=== PATIENT | female | born 1945 | race Caucasian/White ===

== ENCOUNTER → 2018-10-05 15:17 | Outpatient (CLI) | payer BC, SELFPAY ==
--- NOTE | 2018-10-05 15:20 | BI_ITS ---
MAMMOGRAPHY - BILATERAL SCREENING REASON FOR EXAM: Female, 73 years old. Routine annual screening examination. PERTINENT HISTORY: Sister with breast cancer. TECHNIQUE: Digital bilateral breast taryn (3D mammographic acquisition) in the CC and MLO projections. 2-D mediolateral oblique (MLO) and craniocaudad (CC) views of both breasts were obtained. An exaggerated craniocaudad view of the right breast was obtained. CAD: Full Field Digital Mammography with Computer Added Detection was performed. COMPARISON: Comparison is made with prior study dated September 05, 2017 and August 23, 2016. FINDINGS: Breast Composition: The breasts are heterogeneously dense, which may obscure small masses. There are no dominant masses or suspicious calcifications. No other significant abnormalities are identified. There has been no significant change since the prior study. BI/SCREENING MAMM (CAD), BILAT IMPRESSION: Stable bilateral screening mammogram. Yearly follow-up mammogram recommended. (A) ASSESSMENT CATEGORY: BIRADS Category 1: Negative. A letter regarding these results will be sent to the patient by the facility within 30 days. Approximately 10% of breast cancers are not detected by mammography. A normal mammogram should not delay biopsy of a clinically suspicious abnormality. [id number] Electronically Signed: Kurt Camacho MD at 8:21 EST Tel [phone], Service support ,
--- OUTSIDE RECORDS SUMMARY | 2018-11-17 13:49 | XMS RPT_ITS ---
:1945 External Reference #:[id number] Author Organization OH[facility] Care Team Providers Name Role Phone LAZARUS SANCHEZ (MAIL RIDER) Attending Unavailable LAZARUS SANCHEZ (RUSS) Referring Unavailable AHMED, SHAMEEChapito BOED Attending Unavailable SILVERIO GALE Referring Unavailable AHMED, SHAMEEM MOHAMMED Attending Unavailable AHMED, SHAMEEM MOHAMMED Referring Unavailable SILVERIO GALE Attending Unavailable SILVERIO GALE Referring Unavailable AHMED, SHAMEEM MOHAMMED Attending Unavailable Andrea Landeros Attending Unavailable Garrison Gale Primary Care Unavailable PROBLEMS PROBLEMS DATE TYPE CONDITION / CODE ATTENDING STATUS SOURCE 03/10/2010 Active Gastro-esophageal AHMED, SHAMEEM Active [facility] reflux disease [facility] without Repository esophagitis / K21.9(ICD-10) 08/25/2018 Active Other chest pain / AHMED, SHAMEEM Active [facility] R07.89(ICD-10) [facility] Main [place] Repository 05/05/2018 Active Chest pain, NA Active [facility] unspecified / Main [place] R07.9(ICD-10) Repository PROCEDURES PROCEDURES No Procedure Records FoundRESULTS RESULTS PROGRESS Observed: 10/21/2018 Status: COMPLETED Source: [place] 1:59 PM [facility] REPOSITORY HNO ID: [id number] Author: Adrienne Chavez Service: (none) Author Type: Physician Type: Progress Notes Filed: 10/21/2018 2:25 PM Note Text: Follow-up EGD (GERD, non-cardiac chest pain) HPI Peyman Blandon is a 73 year old female here today for Follow- up EGD (GERD, non-cardiac chest pain). GERD symptoms are controlled well on PPI , minimal syptomms, reflux Upon bending down, no night reflux, no vomiting. Weight is stable. Record Review: [facility] records reviewed Current Outpatient Prescriptions: calcium carbonate (CALCIUM 600) 600 mg (1,500 mg) Tab Take 1 tablet twice daily Cholecalciferol, Vitamin D3, 5,000 unit cap Take 1 capsule by mouth once daily. omeprazole (PRILOSEC) 20 mg capsule Take 1 capsule by mouth daily before breakfast. 1/2 hr before meal. propranolol (INDERAL) 40 mg tablet Take 1 tablet by mouth twice daily. mupirocin (BACTROBAN) 2 % ointment Apply 1 application to affected area three times daily. (Patient not taking: Reported on 06/18/2018 ) No current facility-administered medications for this visit. ALLERGIES Allergen Reactions - Niacin Other: See Comments extreme flushing - Koyjhjn-Mrj-Wdt Red* Intolerance Social History Substance Use Topics - Smoking status: Never Smoker - Smokeless tobacco: Never Used - Alcohol use Yes Comment: Rarely PAST MEDICAL HISTORY Diagnosis Date - Collagenous colitis - Esophageal reflux - GERD (gastroesophageal reflux disease) - Hx of colonic polyps - Hyperparathyroidism - Other forms of migraine - Parathyroid adenoma - Schatzki's ring - Senile osteoporosis PAST SURGICAL HISTORY Procedure Laterality Date - COLONOSCOPY 12/11/2006 collagenous colitis - EGD 09/06/2008 Slightly patulous GE junctoin, neg H Pylori - EGD 08/25/2018 - EXPLORE PARATHYROID GLANDS 2002 Removal parathyroid gland FAMILY HISTORY Problem Relation Age of Onset - Diabetes Mother - Cancer Father Lung Cancer - other (Leukemia) Sister REVIEW OF SYSTEMS Review of Systems All other systems reviewed and are negative. PHYSICAL EXAM BP 132/64 Pulse 65 Resp (!) 97 Ht 162.6 cm (5' 4) Wt 64.4 kg (142 lb) BMI 24.37 kg/m? BMI 24.37 kg/(m2) Physical Exam Constitutional: She is oriented to person, place, and time and well-developed, well-nourished, and in no distress. HENT: Head: Normocephalic and atraumatic. Eyes: Conjunctivae are normal. No scleral icterus. Neck: Neck supple. Cardiovascular: Normal rate, regular rhythm and normal heart sounds. Pulmonary/Chest: Effort normal and breath sounds normal. Abdominal: Soft. Bowel sounds are normal. Musculoskeletal: She exhibits no edema. Neurological: She is alert and oriented to person, place, and time. Gait normal. Skin: Skin is warm and dry. Psychiatric: Mood, memory, affect and judgment normal. Assessment/Plan: Peyman was seen today for follow-up egd. Diagnoses and all orders for this visit: Gastroesophageal reflux disease without esophagitis Continue prilosec I have confirmed and edited as necessary, the PFSH and ROS obtained by others. Adrienne Chavez MD DATE: 10/21/18 TIME: 1:59 PM CNOV Observed: 10/21/2018 Status: COMPLETED Source: [place] 1:45 PM [facility] REPOSITORY Office Visit ([facility]) PEYMAN BLANDON I ([id number]) 1945 F Date Time Provider Department 10/21/18 1:45 PM ADRIENNE CHAVEZR During your visit today, we recorded the following information about you: Pulse Respiration Blood pressure Weight 65/minute 97/minute 132/64 64.4 kg Height 1.626 m Adrienne Chavez MD 10/21/2018 2:25 PM Signed Follow-up EGD (GERD, non-cardiac chest pain) HPI Peyman Blandon is a 73 year old female here today for Follow- up EGD (GERD, non-cardiac chest pain). GERD symptoms are controlled well on PPI , minimal syptomms, reflux Upon bending down, no night reflux, no vomiting. Weight is stable. Record Review: [facility] records reviewed Current Outpatient Prescriptions: calcium carbonate (CALCIUM 600) 600 mg (1,500 mg) Tab Take 1 tablet twice daily Cholecalciferol, Vitamin D3, 5,000 unit cap Take 1 capsule by mouth once daily. omeprazole (PRILOSEC) 20 mg capsule Take 1 capsule by mouth daily before breakfast. 1/2 hr before meal. propranolol (INDERAL) 40 mg tablet Take 1 tablet by mouth twice daily. mupirocin (BACTROBAN) 2 % ointment Apply 1 application to affected area three times daily. (Patient not taking: Reported on 06/18/2018 ) No current facility-administered medications for this visit. ALLERGIES Allergen Reactions - Niacin Other: See Comments extreme flushing - Sabseaz-Ufr-Gjk Red* Intolerance Social History Substance Use Topics - Smoking status: Never Smoker - Smokeless tobacco: Never Used - Alcohol use Yes Comment: Rarely PAST MEDICAL HISTORY Diagnosis Date - Collagenous colitis - Esophageal reflux - GERD (gastroesophageal reflux disease) - Hx of colonic polyps - Hyperparathyroidism - Other forms of migraine - Parathyroid adenoma - Schatzki's ring - Senile osteoporosis PAST SURGICAL HISTORY Procedure Laterality Date - COLONOSCOPY 12/11/2006 collagenous colitis - EGD 09/06/2008 Slightly patulous GE junctoin, neg H Pylori - EGD 08/25/2018 - EXPLORE PARATHYROID GLANDS 2002 Removal parathyroid gland FAMILY HISTORY Problem Relation Age of Onset - Diabetes Mother - Cancer Father Lung Cancer - other (Leukemia) Sister REVIEW OF SYSTEMS Review of Systems All other systems reviewed and are negative. PHYSICAL EXAM BP 132/64 Pulse 65 Resp (!) 97 Ht 162.6 cm (5' 4) Wt 64.4 kg (142 lb) BMI 24.37 kg/m? BMI 24.37 kg/(m2) Physical Exam Constitutional: She is oriented to person, place, and time and well-developed, well-nourished, and in no distress. HENT: Head: Normocephalic and atraumatic. Eyes: Conjunctivae are normal. No scleral icterus. Neck: Neck supple. Cardiovascular: Normal rate, regular rhythm and normal heart sounds. Pulmonary/Chest: Effort normal and breath sounds normal. Abdominal: Soft. Bowel sounds are normal. Musculoskeletal: She exhibits no edema. Neurological: She is alert and oriented to person, place, and time. Gait normal. Skin: Skin is warm and dry. Psychiatric: Mood, memory, affect and judgment normal. Assessment/Plan: Peyman was seen today for follow-up egd. Diagnoses and all orders for this visit: Gastroesophageal reflux disease without esophagitis Continue prilosec I have confirmed and edited as necessary, the PFSH and ROS obtained by others. Adrienne Chavez MD DATE: 10/21/18 TIME: 1:59 PM Referring Provider: SELF [200] Allergies As of Date: 10/21/2018 Noted Allergy Reaction NIACIN 08/15/2014 14 - Other: See Comments Comments: extreme flushing [id number]-[id number]-QLC REDUCTASE INHIBIT*01/31/2015 5 - Intolerance Date Reviewed: 10/21/2018 Reviewed by: Adrienne Chavez - Fully Assessed Reason for Visit: Follow-up EGD [Other] Cmt: GERD, non-cardiac chest pain Reason For Visit History Recorded Primary Visit Diagnosis:Gastroesophageal reflux disease without esophagitis [K21.9] Other Visit Diagnoses:Chest pain, unspecified type [R07.9] Gastroesophageal reflux disease, esophagitis presence not specified [K21.9] Order(s):omeprazole (PRILOSEC) 20 mg capsuleTake 1 capsule by mouth daily before breakfast. 1/2 hr before meal.Disp: 90 capsuleRfl: 3 Prescriptions as of 10/21/2018 Sig: CALCIUM CARBONATE 600 MG CALC* Take 1 tablet twice daily CHOLECALCIFEROL (VITAMIN D3) * Take 1 capsule by mouth once * OMEPRAZOLE 20 MG CAPSULE,EDWIGE* Take 1 capsule by mouth daily* PROPRANOLOL 40 MG TABLET Take 1 tablet by mouth twice * Problem List As Of Date 10/21/2018 Noted Resolved SENILE OSTEOPOROSIS [M81.0] Ingrowing Nail [L60.0] INVALID FOR*03/10/2010 Migraine with aura, not intractable, without st*INVALID FOR* GERD (Gastroesophageal Reflux Disease) [K21.9] INVALID FOR* Vitamin D Deficiency [E55.9] INVALID FOR* S/P parathyroidectomy [E89.2] INVALID FOR* Onychia and paronychia of toe [L03.039] INVALID FOR*09/14/2018 Hyperlipidemia [E78.5] INVALID FOR* More... Headache(784.0) [R51] INVALID FOR*09/14/2018 Statin intolerance [Z78.9] INVALID FOR* Prescriptions ordered this encounter Disp Refills Start End OMEPRAZOLE 20 MG CAPSULE,DELAYED REL* 90 c* 3 10/21/2018 Route: ORAL Sig: Take 1 capsule by mouth daily before breakfast. 1/2 hr before meal. Medications Discontinued During This Encounter mupirocin (BACTROBAN) 2 % ointment 22 g 0 03/27/2018 10/21/2018 Route: TOPICAL Sig: Apply 1 application to affected area three times daily. Patient not taking: Reported on 06/18/2018 Disc: Course of therapy completed omeprazole (PRILOSEC) 20 mg capsule 90 c* 3 05/05/2018 10/21/2018 Route: ORAL Sig: Take 1 capsule by mouth daily before breakfast. 1/2 hr before meal. Disc: Reason for discontinue is not on file. Disposition: Return in about 6 months (around 04/21/2019). Follow-up and Disposition History Recorded Encounter Status:Closed by ADRIENNE CHAVEZ MD on 10/21/18 SCREENING MAMM (CAD), Observed: 10/05/2018 Status: F Source: [facility] 3:21 PM [facility] Imaging Services [address] [place], [place] [address] [address] SCREENING MAMM (CAD), BILAT MR#: [id number] Acct: [id number] Name: PEYMAN BLANDON I Rep #: [id number] : 1945 F 73 From: Kurt Camacho MD PCP: Garrison Gale MD Status: REG CL Study: SCREENING MAMM (CAD), BILAT Date of Exam: 10/05/18 Exam# [id number] Ordering Dr: Andrea Landeros MD MAMMOGRAPHY - BILATERAL SCREENING REASON FOR EXAM: Female, 73 years old. Routine annual screening examination. PERTINENT HISTORY: Sister with breast cancer. TECHNIQUE: Digital bilateral breast taryn (3D mammographic acquisition) in the CC and MLO projections. 2-D mediolateral oblique (MLO) and craniocaudad (CC) views of both breasts were obtained. An exaggerated craniocaudad view of the right breast was obtained. CAD: Full Field Digital Mammography with Computer Added Detection was performed. COMPARISON: Comparison is made with prior study dated September 05, 2017 and August 23, 2016. FINDINGS: Breast Composition: The breasts are heterogeneously dense, which may obscure small masses. There are no dominant masses or suspicious calcifications. No other significant abnormalities are identified. There has been no significant change since the prior study. BI/SCREENING MAMM (CAD), BILAT IMPRESSION: Stable bilateral screening mammogram. Yearly follow-up mammogram recommended. (A) ASSESSMENT CATEGORY: BIRADS Category 1: Negative. A letter regarding these results will be sent to the patient by the facility within 30 days. Approximately 10% of breast cancers are not detected by mammography. A normal mammogram should not delay biopsy of a clinically suspicious abnormality. [id number] Electronically Signed: Kurt Camacho MD at 8:21 EST Tel [phone], Service support , CC: Garrison Gale MD; Andrea Landeros MD Television Cabinet Finisher: Signed PROGRESS Observed: 09/14/2018 Status: COMPLETED Source: [facility] 1:02 PM [facility] RE[facility]IT[facility] HNO ID: [id number] Author: Silverio Gale Service: (none) Author Type: Physician Type: Progress Notes Filed: 09/14/2018 1:16 PM Note Text: Chief Complaint Patient presents with: Follow Up HPI Peyman Blandon is a 73 year old female who presents here today for follow-up of routine d/u . Migraine headache, Sx well controlled with propanolol . A recent bp was high. GERD /Schatzki's ring. Dr Chavez, endoscopy Past medical history, appointments, medications, allergies reviewed. Previous Medical History PAST MEDICAL HISTORY Diagnosis Date - Collagenous colitis - Esophageal reflux - GERD (gastroesophageal reflux disease) - Hx of colonic polyps - Hyperparathyroidism - Other forms of migraine - Parathyroid adenoma - Schatzki's ring - Senile osteoporosis Previous Surgical History PAST SURGICAL HISTORY Procedure Laterality Date - COLONOSCOPY 12/11/2006 collagenous colitis - EGD 09/06/2008 Slightly patulous GE junctoin, neg H Pylori - EGD 08/25/2018 - EXPLORE PARATHYROID GLANDS 2002 Removal parathyroid gland Family History FAMILY HISTORY Problem Relation Age of Onset - Diabetes Mother - Cancer Father Lung Cancer - other (Leukemia) Sister Patient Allergies ALLERGIES Allergen Reactions - Niacin Other: See Comments extreme flushing - Ghejrnl-Opu-Tom Red* Intolerance Current Medications Current Outpatient Prescriptions on File Prior to Visit: omeprazole (PRILOSEC) 20 mg capsule Take 1 capsule by mouth daily before breakfast. 1/2 hr before meal. propranolol (INDERAL) 40 mg tablet Take 1 tablet by mouth twice daily. Cholecalciferol, Vitamin D3, 5,000 unit cap Take 1 capsule by mouth once daily. calcium carbonate (CALCIUM 600) 600 mg (1,500 mg) Tab Take 1 tablet twice daily mupirocin (BACTROBAN) 2 % ointment Apply 1 application to affected area three times daily. (Patient not taking: Reported on 06/18/2018 ) No current facility-administered medications on file prior to visit. 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 in 2013. ROS: General: Feels well, no weight changes, fever, chills. HEENT: No sinus congestion, earache, sore throat. Cardiac: No chest pain, palpitations, shortness of breath Resp: No cough, wheeze. GI: No reflux symptoms, food intolerance, bowel changes. : No urinary frequency, dysuria. MS: No pain or joint complaints. PHYSICAL EXAMINATION BP 122/58 (BP Site: Left Arm, BP Position: Sitting, BP Cuff Size: Regular Adult) Pulse 64 Temp 36.6 ?C (97.9 ?F) Resp 16 Ht 162.6 cm (5' 4) Wt 64.9 kg (143 lb) BMI 24.55 kg/m? General: Alert and oriented, no distress, pleasant and cooperative. Heart: Regular, normal S1 and S2, no murmurs, rubs, or gallops Lungs: Clear to auscultation bilaterally Abdomen: Benign Extremities: Feet/ankles without edema, posterior tibial pulses full and symmetrical Health Maintenance List PAP EVERY 3 YEARS (65-80 YEARS OLD) due on 2009 DTAP,TDAP,TD(1 - Tdap) due on 08/16/2014 FECAL OCCULT BLOOD due on 08/20/2017 MAMMOGRAM due on 08/23/2017 INFLUENZA(1) due on 07/11/2018 LIPID SCREEN due on 08/11/2019 DIABETES SCREEN due on 02/11/2020 BONE DENSITY Completed ADULT PREVNAR-13 Completed PNEUMOVAX AGE 65 AND OVER WITH 5YR LOOKBACK Completed Data reviewed Lab Results Component Value Date/Time CHOL 246 (H) 08/11/2014 09:15 AM HDL 63 08/11/2014 09:15 AM LDL 161 (H) 08/11/2014 09:15 AM Assessment/Plan: .(G43.109) Migraine with aura, not intractable, without status migrainosus (primary encounter diagnosis) Comment: Plan: propranolol (INDERAL) 40 mg tablet, COMP METABOLIC PANEL, CBC, TSH BLD Doing well. She's agreeable to BW prior to next visit. (E55.9) Vitamin D deficiency Comment: Plan: Cholecalciferol, Vitamin D3, 5,000 unit cap, VITAMIN D 25 HYDROXY (M81.0) Senile osteoporosis Comment: Plan: Cholecalciferol, Vitamin D3, 5,000 unit cap Continue (Z23) Need for vaccination Comment: Plan: ADMIN OF INFLUENZA VACCINE, INFLUENZA SEASONAL HIGH DOSE AGE 65+ Agreeable (E78.5) Hyperlipidemia, unspecified hyperlipidemia type Comment: statin intolerant. Plan: LIPID PANEL BASIC prior that'll be 5 year. (K21.9) Gastroesophageal reflux disease, esophagitis presence not specified Comment: Plan: COMP METABOLIC PANEL, TSH BLD (Z78.9) Statin intolerance Comment: Plan: as above. Signed Prescriptions Disp Refills propranolol (INDERAL) 40 mg tablet 180 tablet 3 Sig: Take 1 tablet by mouth twice daily. BRENDA: No Cholecalciferol, Vitamin D3, 5,000 unit cap 90 capsule 3 Sig: Take 1 capsule by mouth once daily. BRENDA: No RTO: annual for flu shot if all is well. Silverio Gale MD CNOV Observed: 09/14/2018 Status: COMPLETED Source: [facility] 1:00 PM [facility] REPOSITORY Office Visit ([facility]) PEYMAN BLANDON I ([id number]) 1945 F Date Time Provider Department 09/14/18 1:00 PM SILVERIO GALE During your visit today, we recorded the following information about you: Temperature Pulse Respiration Blood pressure 97.9 degrees 64/minute 16/minute 122/58 Weight Height 64.9 kg 1.626 m Silverio Gale MD 09/14/2018 1:16 PM Signed Chief Complaint Patient presents with: Follow Up HPI Peyman Blandon is a 73 year old female who presents here today for follow-up of routine d/u . Migraine headache, Sx well controlled with propanolol . A recent bp was high. GERD /Schatzki's ring. Dr Chavez, endoscopy Past medical history, appointments, medications, allergies reviewed. Previous Medical History PAST MEDICAL HISTORY Diagnosis Date - Collagenous colitis - Esophageal reflux - GERD (gastroesophageal reflux disease) - Hx of colonic polyps - Hyperparathyroidism - Other forms of migraine - Parathyroid adenoma - Schatzki's ring - Senile osteoporosis Previous Surgical History PAST SURGICAL HISTORY Procedure Laterality Date - COLONOSCOPY 12/11/2006 collagenous colitis - EGD 09/06/2008 Slightly patulous GE junctoin, neg H Pylori - EGD 08/25/2018 - EXPLORE PARATHYROID GLANDS 2002 Removal parathyroid gland Family History FAMILY HISTORY Problem Relation Age of Onset - Diabetes Mother - Cancer Father Lung Cancer - other (Leukemia) Sister Patient Allergies ALLERGIES Allergen Reactions - Niacin Other: See Comments extreme flushing - Tcsbgaz-Toy-Cbg Red* Intolerance Current Medications Current Outpatient Prescriptions on File Prior to Visit: omeprazole (PRILOSEC) 20 mg capsule Take 1 capsule by mouth daily before breakfast. 1/2 hr before meal. propranolol (INDERAL) 40 mg tablet Take 1 tablet by mouth twice daily. Cholecalciferol, Vitamin D3, 5,000 unit cap Take 1 capsule by mouth once daily. calcium carbonate (CALCIUM 600) 600 mg (1,500 mg) Tab Take 1 tablet twice daily mupirocin (BACTROBAN) 2 % ointment Apply 1 application to affected area three times daily. (Patient not taking: Reported on 06/18/2018 ) No current facility-administered medications on file prior to visit. 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 in 2013. ROS: General: Feels well, no weight changes, fever, chills. HEENT: No sinus congestion, earache, sore throat. Cardiac: No chest pain, palpitations, shortness of breath Resp: No cough, wheeze. GI: No reflux symptoms, food intolerance, bowel changes. : No urinary frequency, dysuria. MS: No pain or joint complaints. PHYSICAL EXAMINATION BP 122/58 (BP Site: Left Arm, BP Position: Sitting, BP Cuff Size: Regular Adult) Pulse 64 Temp 36.6 ?C (97.9 ?F) Resp 16 Ht 162.6 cm (5' 4) Wt 64.9 kg (143 lb) BMI 24.55 kg/m? General: Alert and oriented, no distress, pleasant and cooperative. Heart: Regular, normal S1 and S2, no murmurs, rubs, or gallops Lungs: Clear to auscultation bilaterally Abdomen: Benign Extremities: Feet/ankles without edema, posterior tibial pulses full and symmetrical Health Maintenance List PAP EVERY 3 YEARS (65-80 YEARS OLD) due on 2009 DTAP,TDAP,TD(1 - Tdap) due on 08/16/2014 FECAL OCCULT BLOOD due on 08/20/2017 MAMMOGRAM due on 08/23/2017 INFLUENZA(1) due on 07/11/2018 LIPID SCREEN due on 08/11/2019 DIABETES SCREEN due on 02/11/2020 BONE DENSITY Completed ADULT PREVNAR-13 Completed PNEUMOVAX AGE 65 AND OVER WITH 5YR LOOKBACK Completed Data reviewed Lab Results Component Value Date/Time CHOL 246 (H) 08/11/2014 09:15 AM HDL 63 08/11/2014 09:15 AM LDL 161 (H) 08/11/2014 09:15 AM Assessment/Plan: .(G43.109) Migraine with aura, not intractable, without status migrainosus (primary encounter diagnosis) Comment: Plan: propranolol (INDERAL) 40 mg tablet, COMP METABOLIC PANEL, CBC, TSH BLD Doing well. She's agreeable to BW prior to next visit. (E55.9) Vitamin D deficiency Comment: Plan: Cholecalciferol, Vitamin D3, 5,000 unit cap, VITAMIN D 25 HYDROXY (M81.0) Senile osteoporosis Comment: Plan: Cholecalciferol, Vitamin D3, 5,000 unit cap Continue (Z23) Need for vaccination Comment: Plan: ADMIN OF INFLUENZA VACCINE, INFLUENZA SEASONAL HIGH DOSE AGE 65+ Agreeable (E78.5) Hyperlipidemia, unspecified hyperlipidemia type Comment: statin intolerant. Plan: LIPID PANEL BASIC prior that'll be 5 year. (K21.9) Gastroesophageal reflux disease, esophagitis presence not specified Comment: Plan: COMP METABOLIC PANEL, TSH BLD (Z78.9) Statin intolerance Comment: Plan: as above. Signed Prescriptions Disp Refills propranolol (INDERAL) 40 mg tablet 180 tablet 3 Sig: Take 1 tablet by mouth twice daily. BRENDA: No Cholecalciferol, Vitamin D3, 5,000 unit cap 90 capsule 3 Sig: Take 1 capsule by mouth once daily. BRENDA: No RTO: annual for flu shot if all is well. Silverio Gale MD Referring Provider: SILVERIO GALE [[id number]] Allergies As of Date: 09/14/2018 Noted Allergy Reaction NIACIN 08/15/2014 14 - Other: See Comments Comments: extreme flushing DDHTSUM-WJR-JLO REDUCTASE INHIBIT*01/31/2015 5 - Intolerance Date Reviewed: 09/14/2018 Reviewed by: Carlene Albert Ma - Fully Assessed Reason for Visit: Follow Up [171] Primary Visit Diagnosis:Migraine with aura, not intractable, without status migrainosus [G43.109] Other Visit Diagnoses:Vitamin D deficiency [E55.9] Senile osteoporosis [M81.0] Need for vaccination [Z23] Hyperlipidemia, unspecified hyperlipidemia type [E78.5] Gastroesophageal reflux disease, esophagitis presence not specified [K21.9] Statin intolerance [Z78.9] Order(s):ADMIN OF INFLUENZA VACCINE [[id number]] Order #: [id number]: 1 INFLUENZA SEASONAL HIGH DOSE AGE 65+ [[id number]] Order #: [id number] propranolol (INDERAL) 40 mg tabletTake 1 tablet by mouth twice daily.Disp: 180 tabletRfl: 3 Cholecalciferol, Vitamin D3, 5,000 unit capTake 1 capsule by mouth once daily.Disp: 90 capsuleRfl: 3 COMP METABOLIC PANEL [SQCMP] Order #: [id number] FUTURE LIPID PANEL BASIC [SQLIPB] Order #: [id number] FUTURE CBC [SQCBC] Order #: [id number] FUTURE TSH BLD [SQTSH] Order #: [id number] FUTURE VITAMIN D 25 HYDROXY [SQVITD] Order #: [id number] FUTURE Prescriptions as of 09/14/2018 Sig: PROPRANOLOL 40 MG TABLET Take 1 tablet by mouth twice * CHOLECALCIFEROL (VITAMIN D3) * Take 1 capsule by mouth once * OMEPRAZOLE 20 MG CAPSULE,EDWIGE* Take 1 capsule by mouth daily* CALCIUM CARBONATE 600 MG CALC* Take 1 tablet twice daily MUPIROCIN 2 % TOPICAL OINTMENT Apply 1 application to affect* Patient not taking: Reported on 06/18/2018 Problem List As Of Date 09/14/2018 Noted Resolved SENILE OSTEOPOROSIS [M81.0] Ingrowing Nail [L60.0] INVALID FOR*03/10/2010 Migraine with aura, not intractable, without st*INVALID FOR* GERD (Gastroesophageal Reflux Disease) [K21.9] INVALID FOR* Vitamin D Deficiency [E55.9] INVALID FOR* S/P parathyroidectomy [E89.2] INVALID FOR* Onychia and paronychia of toe [L03.039] INVALID FOR*09/14/2018 Hyperlipidemia [E78.5] INVALID FOR* More... Headache(784.0) [R51] INVALID FOR*09/14/2018 Statin intolerance [Z78.9] INVALID FOR* Prescriptions ordered this encounter Disp Refills Start End PROPRANOLOL 40 MG TABLET 180 * 3 09/14/2018 Route: ORAL Sig: Take 1 tablet by mouth twice daily. CHOLECALCIFEROL (VITAMIN D3) 5,000 U* 90 c* 3 09/14/2018 Route: ORAL Sig: Take 1 capsule by mouth once daily. Medications Discontinued During This Encounter propranolol (INDERAL) 40 mg tablet 180 * 3 08/22/2017 09/14/2018 Route: ORAL Sig: Take 1 tablet by mouth twice daily. Disc: Reason for discontinue is not on file. Cholecalciferol, Vitamin D3, 5,000 u* 90 c* 3 08/22/2017 09/14/2018 Route: ORAL Sig: Take 1 capsule by mouth once daily. Disc: Reason for discontinue is not on file. Encounter Status:Closed by GARRISON GALE MD on 09/14/18 RUSSTOUTRBRANDON Observed: 09/01/2018 Status: COMPLETED Source: VELMA 12:00 AM [facility] REPOSITORY Patient Outreach ([facility]) PEYMAN BLANDON I ([id number]) 1945 F Date Time Provider Department 09/01/18 [facility] During your visit today, we recorded the following information about you: Allergies As of Date: 09/01/2018 Noted Allergy Reaction NIACIN 08/15/2014 14 - Other: See Comments Comments: extreme flushing YBNVSOT-VRJ-HIS REDUCTASE INHIBIT*01/31/2015 5 - Intolerance Date Reviewed: 08/25/2018 Reviewed by: Charlotte Houston RN - Fully Assessed Visit Diagnosis:Medication management [Z79.899] Order(s):LIPID PANEL BASIC [SQLIPB] Order #: [id number] FUTURE Prescriptions as of 09/01/2018 Sig: OMEPRAZOLE 20 MG CAPSULE,EDWIGE* Take 1 capsule by mouth daily* MUPIROCIN 2 % TOPICAL OINTMENT Apply 1 application to affect* Patient not taking: Reported on 06/18/2018 X PROPRANOLOL 40 MG TABLET Take 1 tablet by mouth twice * X CHOLECALCIFEROL (VITAMIN D3) * Take 1 capsule by mouth once * CALCIUM CARBONATE 600 MG CALC* Take 1 tablet twice daily Problem List As Of Date 09/01/2018 Noted Resolved SENILE OSTEOPOROSIS [M81.0] Ingrowing Nail [L60.0] INVALID FOR*03/10/2010 Migraine [G43.909] INVALID FOR* GERD (Gastroesophageal Reflux Disease) [K21.9] INVALID FOR* Vitamin D Deficiency [E55.9] INVALID FOR* S/P parathyroidectomy [E89.2] INVALID FOR* Onychia and paronychia of toe [L03.039] INVALID FOR* Hyperlipidemia [E78.5] INVALID FOR* More... Headache(784.0) [R51] INVALID FOR* Encounter Status:Closed by EPIC, PRODUSER on 10/02/18 SURGICAL PATHOLOGY Observed: 08/25/2018 Status: F Source: VELMA 12:14 PM [facility] REPOSITORY Specimen originated from [facility] Specimen #: [id number] Submitting Physician: ADRIENNE CHAVEZ FINAL DIAGNOSIS Esophagus, biopsy - Squamous mucosa with no diagnostic alteration. - Negative for intraepithelial eosinophils. SR/srj 08/26/2018 Diaz Morrissey MD, Ph.D. (Electronic Signature) SPECIMEN SUBMITTED A: ESOPHAGUS, BIOPSY CLINICAL DATA gerd GROSS DESCRIPTION A. Received in formalin are two pieces of valdes, soft tissue aggregating to 0.5 x 0.2 x 0.2 cm. Totally submitted in one cassette. Gross examination performed at [facility], [address] [place] [address] 08/25/2018 10:40:06 PM Date of Report: 08/26/2018 Date of Procedure: 08/25/2018 Date of Receipt: 08/25/2018 Submitted by: ADRIENNE CHAVEZ Location: [facility] Diagnostic interpretation performed at [place] [address]. HISTORY PHYSICAL Observed: 08/25/2018 Status: COMPLETED Source: VELMA 11:30 AM [facility] REPOSITORY HNO ID: [id number] Author: Adrienne Chavez Service: (none) Author Type: Physician Type: HANDP Filed: 08/25/2018 12:16 PM Note Text: HISTORY AND PHYSICAL Peyman Blandon, 72 year old female here for EGD, to evaluate non-cardiac chest pain Current history and physical on file: Yes Is a new History and Physical required for today's visit? No Indication for procedure: Atypical Chest Pain PROCEDURE(S) SCHEDULED FOR: EGD (Esophagogastroduodenoscopy) with or without biopsies, removal of polyps or lesions, dilation ( any means), treatment of bleeding ( any means), Barrx treatment of Tristen's Esophagus, image tube placement or cryo therapy treatment based on clinical findings. BASELINE BEHAVIOR: Calm BASELINE ORIENTATION: A AND O x3 All medications and allergies reviewed: Yes Skin Assessment: Warm dry muscus membranes pink Airway/Respiratory Assessment: Airway: visualization of the uvula- Yes Mouth: opening greater than 2 fingerbreadths- Yes Neck: full range of motion- Yes Breath sounds clear/equal- Yes Cardiac Assessment: Regular rate and rhythm without murmur Abdominal Assessment: Abdomen soft, non-tender, no masses or organomegaly. Sedation Plan: Deep Additional Comments: None Adrienne Chavez MD PROGRESS Observed: 06/18/2018 Status: COMPLETED Source: VELMA 1:09 PM [facility] REPOSITORY O ID: [id number] Author: Adrienne Chavez Service: (none) Author Type: Physician Type: Progress Notes Filed: 06/18/2018 1:48 PM Note Text: GERD HPI: Peyman Blandon is a 72 year old female who presents for GERD. Unbearable CP, 1 month ago patient visited Urgent care in [place], EKG was fine, pain was was mid sternal, patient used to be on PPI stopped secondary claims of dementia. Recently started on PPI 20 mg, no symptoms are improved, also on bland diet. No dysphagia, nausea or vomiting. No weight loss. Record Review: [facility] records reviewed PAST MEDICAL HISTORY Diagnosis Date - Collagenous colitis - Esophageal reflux - GERD (gastroesophageal reflux disease) - Hx of colonic polyps - Hyperparathyroidism - Other forms of migraine - Parathyroid adenoma - Schatzki's ring - Senile osteoporosis PAST SURGICAL HISTORY Procedure Laterality Date - COLONOSCOPY 12/31/2006 - COLONOSCOPY 12/11/2006 - EGD 09/06/2008 - EXPLORE PARATHYROID GLANDS 2002 Removal parathyroid gland Allergies: ALLERGIES Allergen Reactions - Niacin Other: See Comments extreme flushing - Ybwhthq-Mde-Yhl Red* Intolerance Medications: omeprazole (PRILOSEC) 20 mg capsule Take 1 capsule by mouth daily before breakfast. 1/2 hr before meal. propranolol (INDERAL) 40 mg tablet Take 1 tablet by mouth twice daily. Cholecalciferol, Vitamin D3, 5,000 unit cap Take 1 capsule by mouth once daily. calcium carbonate (CALCIUM 600) 600 mg (1,500 mg) Tab Take 1 tablet twice daily mupirocin (BACTROBAN) 2 % ointment Apply 1 application to affected area three times daily. FAMILY HISTORY Problem Relation Age of Onset - Diabetes Mother - Cancer Father Lung Cancer - Leukemia [OTHER] Sister Employer And Job Title: None on file Years Of Education Completed: Not specified Marital Status: Social History Substance Use Topics - Smoking status: Never Smoker - Smokeless tobacco: Never Used - Alcohol use Yes Comment: Rarely Review of Systems: Review of Systems Gastrointestinal: Heartburn Where do you currently reside? [place] Are you taking any blood thinners? No Physical Examination: Physical Exam Constitutional: She is oriented to person, place, and time and well-developed, well-nourished, and in no distress. HENT: Head: Normocephalic and atraumatic. Eyes: Conjunctivae are normal. No scleral icterus. Neck: Neck supple. Cardiovascular: Normal rate, regular rhythm and normal heart sounds. Pulmonary/Chest: Effort normal and breath sounds normal. Abdominal: Soft. Bowel sounds are normal. Musculoskeletal: She exhibits no edema. Neurological: She is alert and oriented to person, place, and time. Gait normal. Skin: Skin is warm and dry. Psychiatric: Mood, memory, affect and judgment normal. Assessment/Plan: Peyman was seen today for gerd. Diagnoses and all orders for this visit: Gastroesophageal reflux disease, esophagitis presence not specified - EGD GEN ANES; Future Non-cardiac chest pain - EGD GEN ANES; Future I have confirmed and edited as necessary, the PFSH and ROS obtained by others. This note was generated using Momo voice recognition system, and there may be some incorrect words, spellings, and punctuation that were not noted in checking the note before saving. Carmen Bingham LPN CNOV Observed: 06/18/2018 Status: COMPLETED Source: VELMA 1:00 PM [facility] RE[facility] Office Visit ([facility]) PEYMAN BLANDON I ([id number]) 1945 F Date Time Provider Department 06/18/18 1:00 PM ADRIENNE CHAVEZ [facility] During your visit today, we recorded the following information about you: Pulse Blood pressure Weight Height 72/minute 148/82 65.3 kg 1.607 m Adrienne Chavez MD 06/18/2018 1:48 PM Signed GERD HPI: Peyman Blandon is a 72 year old female who presents for GERD. Unbearable CP, 1 month ago patient visited Urgent care in [place], EKG was fine, pain was was mid sternal, patient used to be on PPI stopped secondary claims of dementia. Recently started on PPI 20 mg, no symptoms are improved, also on bland diet. No dysphagia, nausea or vomiting. No weight loss. Record Review: [facility] records reviewed PAST MEDICAL HISTORY Diagnosis Date - Collagenous colitis - Esophageal reflux - GERD (gastroesophageal reflux disease) - Hx of colonic polyps - Hyperparathyroidism - Other forms of migraine - Parathyroid adenoma - Schatzki's ring - Senile osteoporosis PAST SURGICAL HISTORY Procedure Laterality Date - COLONOSCOPY 12/31/2006 - COLONOSCOPY 12/11/2006 - EGD 09/06/2008 - EXPLORE PARATHYROID GLANDS 2002 Removal parathyroid gland Allergies: ALLERGIES Allergen Reactions - Niacin Other: See Comments extreme flushing - Iqsmvam-Otv-Jlq Red* Intolerance Medications: omeprazole (PRILOSEC) 20 mg capsule Take 1 capsule by mouth daily before breakfast. 1/2 hr before meal. propranolol (INDERAL) 40 mg tablet Take 1 tablet by mouth twice daily. Cholecalciferol, Vitamin D3, 5,000 unit cap Take 1 capsule by mouth once daily. calcium carbonate (CALCIUM 600) 600 mg (1,500 mg) Tab Take 1 tablet twice daily mupirocin (BACTROBAN) 2 % ointment Apply 1 application to affected area three times daily. FAMILY HISTORY Problem Relation Age of Onset - Diabetes Mother - Cancer Father Lung Cancer - Leukemia [OTHER] Sister Employer And Job Title: None on file Years Of Education Completed: Not specified Marital Status: Social History Substance Use Topics - Smoking status: Never Smoker - Smokeless tobacco: Never Used - Alcohol use Yes Comment: Rarely Review of Systems: Review of Systems Gastrointestinal: Heartburn Where do you currently reside? [place] Are you taking any blood thinners? No Physical Examination: Physical Exam Constitutional: She is oriented to person, place, and time and well-developed, well-nourished, and in no distress. HENT: Head: Normocephalic and atraumatic. Eyes: Conjunctivae are normal. No scleral icterus. Neck: Neck supple. Cardiovascular: Normal rate, regular rhythm and normal heart sounds. Pulmonary/Chest: Effort normal and breath sounds normal. Abdominal: Soft. Bowel sounds are normal. Musculoskeletal: She exhibits no edema. Neurological: She is alert and oriented to person, place, and time. Gait normal. Skin: Skin is warm and dry. Psychiatric: Mood, memory, affect and judgment normal. Assessment/Plan: Peyman was seen today for gerd. Diagnoses and all orders for this visit: Gastroesophageal reflux disease, esophagitis presence not specified - EGD GEN ANES; Future Non-cardiac chest pain - EGD GEN ANES; Future I have confirmed and edited as necessary, the PFSH and ROS obtained by others. This note was generated using Momo voice recognition system, and there may be some incorrect words, spellings, and punctuation that were not noted in checking the note before saving. Carmen Bingham LPN Referring Provider: SILVERIO GALE [[id number]] Allergies As of Date: 06/18/2018 Noted Allergy Reaction NIACIN 08/15/2014 14 - Other: See Comments Comments: extreme flushing [id number]-IWW-[id number] REDUCTASE INHIBIT*01/31/2015 5 - Intolerance Date Reviewed: 06/18/2018 Reviewed by: Adrienne hCavez - Fully Assessed Reason for Visit: GERD [548] Primary Visit Diagnosis:Gastroesophageal reflux disease, esophagitis presence not specified [K21.9] Other Visit Diagnosis:Non-cardiac chest pain [R07.89] Order(s):EGD GEN ANES [2400078] Order #: [id number] FUTURE Prescriptions as of 06/18/2018 Sig: OMEPRAZOLE 20 MG CAPSULE,EDWIGE* Take 1 capsule by mouth daily* PROPRANOLOL 40 MG TABLET Take 1 tablet by mouth twice * CHOLECALCIFEROL (VITAMIN D3) * Take 1 capsule by mouth once * CALCIUM CARBONATE 600 MG CALC* Take 1 tablet twice daily MUPIROCIN 2 % TOPICAL OINTMENT Apply 1 application to affect* Patient not taking: Reported on 06/18/2018 Problem List As Of Date 06/18/2018 Noted Resolved SENILE OSTEOPOROSIS [M81.0] Ingrowing Nail [L60.0] INVALID FOR*03/10/2010 Migraine [G43.909] INVALID FOR* GERD (Gastroesophageal Reflux Disease) [K21.9] INVALID FOR* Vitamin D Deficiency [E55.9] INVALID FOR* S/P parathyroidectomy [E89.2] INVALID FOR* Onychia and paronychia of toe [L03.039] INVALID FOR* Hyperlipidemia [E78.5] INVALID FOR* More... Headache(784.0) [R51] INVALID FOR* Encounter Status:Closed by ADRIENNE CHAVEZ MD on 06/18/18 CNCO Observed: 06/18/2018 Status: COMPLETED Source: VELMA 12:00 AM [facility] REPOSITORY Letter Text UPPER ENDOSCOPY (EGD) You are scheduled at: [place] [address] You are scheduled for an EGD on 08/25/18 at 11:00 AM. YOU MUST have a responsible adult to drive you home and to assist you at home while you finish recovering from your sedation. Please limit the number of people that come with you to 1-2 people due to the limited waiting area. Bring your Floor Refinisher's license, insurance card(s) and a list of your medications with you. Arrive 45 minutes before your scheduled exam time at 10:15 AM Do not eat or drink anything after midnight the night before, including gum and hard candy. If you take any heart, blood pressure or breathing medications, you can take these before 6:00am on the day of your exam with a little sip of water. 5 DAYS BEFORE THE EXAM STOP TAKING ASPIRIN OR ASPIRIN CONTAINING PRODUCTS, VITAMIN E, BLOOD THINNERS SUCH COUMADIN, WARFARIN, PLAVIX, AGGRENOX (Please consult with the prescribing doctor of your blood thinner). DAY OF THE EXAM Diabetics: Please do not take any of your diabetic medications on the morning of the procedure; you may take them after the procedure. Any questions, please call our office at [phone]. There will be a $50.00 charge for any no show appointments or same day cancels. PROGRESS Observed: 05/05/2018 Status: COMPLETED Source: VELMA 12:02 PM [facility] REPOSITORY HNO ID: [id number] Author: Lazarus Powell (Russ) Daniel Service: (none) Author Type: Nurse Practitioner Type: Progress Notes Filed: 05/05/2018 12:11 PM Note Text: HPI/CC: Peyman Blandon is a 72 year old female who presents for Chest discomfort and nausea started suddenly last evening around 11-12pm. Declined Er last evening at request of . CP is constant, does not change. Pain is mid sternal and up into throat. Zeinab consume pizza a few days ago. Attempted antacids without resolve. + Hx of GERD previously treated successfully with Prilosec but stopped d/t media claims. See GI, needs new referral. Denies SOB, diaphoreses, radiation, palpitations, vomiting, change in BMs, change in urination, dizziness, lightheadedness, weakness. ROS as above, otherwise non-contributory. Reviewed PMHx, PSHx, social Hx, medications and allergies. PHYSICAL EXAMINATION: BP 132/78 Pulse 84 Resp 16 Wt 65.3 kg (144 lb) BMI 25.31 kg/m? General appearance: Well appearing, alert, in no acute distress, well-hydrated, well nourished. Skin: Skin color, texture, turgor normal, no suspicious rashes or lesions Neck: Supple, no adenopathy; thyroid symmetric, normal size, no bruits Lungs: Lungs clear to auscultation. No wheezing, rhonchi, rales Heart: RRR without murmur, gallop, or rubs. No ectopy, ECG: NSR ? Left atrial enlargement- no previous ECG to compare Abdomen: Normal abdominal exam, Abdomen soft, non-tender. Bowel sounds normal. No masses, organomegaly ASSESSMENT/PLAN: 1. Chest pain, unspecified type - ICD9: 786.50, ICD10: R07.9 (primary diagnosis) Atypical chest pain, symptoms are not consistent with cardiac ischemia due to nonexertional nature of symptom and accompanying GI symptoms possible etiology include GERD - Treatment with trial of Prilosec 20 mg QD - ECG COMPLETE W INTERPRETATION 2. Gastroesophageal reflux disease, esophagitis presence not specified - ICD9: 530.81, ICD10: K21.9 - CONSULT TO GASTROENTEROLOGY - as above - discussed when to go to ER - F/u PRN Lazarus Sanchez APRN.CNP ECG COMPLETE W Observed: 05/05/2018 Status: F Source: VELMA INTERPRETATION 11:04 AM [facility] REPOSITORY NAME : PEYMAN BLANDON PID : [id number] : 1945 Gender : Female Race : ORD : [id number] Procedure Date : May 05 2018 11:04:19 Edit Date : May 07 2018 14:44:51 Diagnosis:NORMAL SINUS RHYTHM POSSIBLE LEFT ATRIAL ENLARGEMENT BORDERLINE ECG Confirmed by ELIJAH MICHELE D.O. ([id number]) on 05/07/2018 2:44:21 PM Ventricular Rate : 80 BPM Atrial Rate : 80 BPM P-R Interval : 162 ms QRS Duration : 70 ms Q-T Interval : 376 ms QTC Calculation(Bezet) : 433 ms P [place] : 61 degrees R [place] : 14 degrees T [place] : 47 degrees Test Reason : Location : 185 : [facility] Overread By : ELIJAH MICHELE D.O. Edited By : ELIJAH MICHELE D.O. Referred By : LAZARUS SANCHEZ Acquired by : MODESTO MEJÍA CNOV Observed: 05/05/2018 Status: COMPLETED Source: VELMA 11:00 AM [facility] REPOSITORY Office Visit (FAMPWS) PEYMAN LBANDON I ([id number]) 1945 F Date Time Provider Department 05/05/18 11:00 AM LAZARUS SANCHEZ) FAMPWS During your visit today, we recorded the following information about you: Pulse Respiration Blood pressure Weight 84/minute 16/minute 132/78 65.3 kg Lazarus Sanchez APRN.CNP 05/05/2018 12:11 PM Signed HPI/CC: Peyman Blandon is a 72 year old female who presents for Chest discomfort and nausea started suddenly last evening around 11-12pm. Declined Er last evening at request of . CP is constant, does not change. Pain is mid sternal and up into throat. Zeinab consume pizza a few days ago. Attempted antacids without resolve. + Hx of GERD previously treated successfully with Prilosec but stopped d/t media claims. See GI, needs new referral. Denies SOB, diaphoreses, radiation, palpitations, vomiting, change in BMs, change in urination, dizziness, lightheadedness, weakness. ROS as above, otherwise non-contributory. Reviewed PMHx, PSHx, social Hx, medications and allergies. PHYSICAL EXAMINATION: BP 132/78 Pulse 84 Resp 16 Wt 65.3 kg (144 lb) BMI 25.31 kg/m? General appearance: Well appearing, alert, in no acute distress, well-hydrated, well nourished. Skin: Skin color, texture, turgor normal, no suspicious rashes or lesions Neck: Supple, no adenopathy; thyroid symmetric, normal size, no bruits Lungs: Lungs clear to auscultation. No wheezing, rhonchi, rales Heart: RRR without murmur, gallop, or rubs. No ectopy, ECG: NSR ? Left atrial enlargement- no previous ECG to compare Abdomen: Normal abdominal exam, Abdomen soft, non-tender. Bowel sounds normal. No masses, organomegaly ASSESSMENT/PLAN: 1. Chest pain, unspecified type - ICD9: 786.50, ICD10: R07.9 (primary diagnosis) Atypical chest pain, symptoms are not consistent with cardiac ischemia due to nonexertional nature of symptom and accompanying GI symptoms possible etiology include GERD - Treatment with trial of Prilosec 20 mg QD - ECG COMPLETE W INTERPRETATION 2. Gastroesophageal reflux disease, esophagitis presence not specified - ICD9: 530.81, ICD10: K21.9 - CONSULT TO GASTROENTEROLOGY - as above - discussed when to go to ER - F/u PRN Lazarus Sanchez APRN.CNP Referring Provider: SELF [[id number]] Allergies As of Date: 05/05/2018 Noted Allergy Reaction NIACIN 08/15/2014 14 - Other: See Comments Comments: extreme flushing AVMFLNL-ZMZ-IQI REDUCTASE INHIBIT*01/31/2015 5 - Intolerance Date Reviewed: 05/05/2018 Reviewed by: Modesto Mejía LPN - Fully Assessed Reason for Visit: Chest Pain [21] Cmt: started suddenly last evening around 11-12pm; no shortness of breath; did not radiate to jaw or arm Primary Visit Diagnosis:Chest pain, unspecified type [R07.9] Other Visit Diagnosis:Gastroesophageal reflux disease, esophagitis presence not specified [K21.9] Order(s):ECG COMPLETE W INTERPRETATION [ECG01] Order #: [id number] FUTURE omeprazole (PRILOSEC) 20 mg capsuleTake 1 capsule by mouth daily before breakfast. 1/2 hr before meal.Disp: 90 capsuleRfl: 3 CONSULT TO GASTROENTEROLOGY [9010] Order #: [id number]: 1 Prescriptions as of 05/05/2018 Sig: MUPIROCIN 2 % TOPICAL OINTMENT Apply 1 application to affect* PROPRANOLOL 40 MG TABLET Take 1 tablet by mouth twice * CHOLECALCIFEROL (VITAMIN D3) * Take 1 capsule by mouth once * CALCIUM CARBONATE 600 MG CALC* Take 1 tablet twice daily OMEPRAZOLE 20 MG CAPSULE,EDWIGE* Take 1 capsule by mouth daily* Problem List As Of Date 05/05/2018 Noted Resolved SENILE OSTEOPOROSIS [M81.0] Ingrowing Nail [L60.0] INVALID FOR*03/10/2010 Migraine [G43.909] INVALID FOR* GERD (Gastroesophageal Reflux Disease) [K21.9] INVALID FOR* Vitamin D Deficiency [E55.9] INVALID FOR* S/P parathyroidectomy [E89.2] INVALID FOR* Onychia and paronychia of toe [L03.039] INVALID FOR* Hyperlipidemia [E78.5] INVALID FOR* More... Headache(784.0) [R51] INVALID FOR* Prescriptions ordered this encounter Disp Refills Start End OMEPRAZOLE 20 MG CAPSULE,DELAYED REL* 90 c* 3 05/05/2018 Route: ORAL Sig: Take 1 capsule by mouth daily before breakfast. 1/2 hr before meal. Encounter Status:Closed by LAZARUS SANCHEZ CNP on 05/05/18 PROGRESS Observed: 03/27/2018 Status: COMPLETED Source: VEL[place] 12:15 PM [facility] REPOSITORY HNO ID: [id number] Author: Millicent Young Service: (none) Author Type: Nurse Practitioner Type: Progress Notes Filed: 03/27/2018 12:27 PM Note Text: Subjective HPI Pt presents with c/o rash on right side of face near mouth x 2 days. Teller mild pain prior to rash eruption. This am right lower lip was swollen and has rash as well, right inner cheek has lesions as well. Denies fever, drainage, honey colored crusting. Had chills intermittently yesterday and feels like I'm coming down with something. Concern for secondary infection as she scratched a couple lesions open. Hx chickenpox as a child. 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 Review of Systems Constitutional: Positive for chills. Negative for fever. Skin: Positive for rash. Negative for itching. Objective Physical Exam Constitutional: She is oriented to person, place, and time and well-developed, well-nourished, and in no distress. No distress. HENT: Head: Vesicular lesions to area noted. Right buccal mucosa with raised lesions as well. No drainage, heat, edema noted. Neurological: She is alert and oriented to person, place, and time. Skin: Skin is warm and dry. Rash noted. Rash is maculopapular. She is not diaphoretic. Norris, Maculopapular lesions scattered to areas noted. No burrows, no signs of secondary infection. No drainage, heat, edema. +blanching. BP 140/90 Pulse 70 Temp 37.3 ?C (99.1 ?F) (Left Tympanic) Resp 16 Wt 65.3 kg (144 lb) BMI 25.31 kg/m? .Patient presents with: Rash: on face getting worse PAST MEDICAL HISTORY Diagnosis Date - Esophageal reflux - Hyperparathyroidism - Other forms of migraine - Parathyroid adenoma - Senile osteoporosis PAST SURGICAL HISTORY Procedure Laterality Date - EXPLORE PARATHYROID GLANDS 2002 Removal parathyroid gland ALLERGIES Niacin; Kwepicc-Mxv-Uvt Reductase Inhibitors MEDICATIONS propranolol (INDERAL) 40 mg tablet Take 1 tablet by mouth twice daily. Cholecalciferol, Vitamin D3, 5,000 unit cap Take 1 capsule by mouth once daily. calcium carbonate (CALCIUM 600) 600 mg (1,500 mg) Tab Take 1 tablet twice daily acyclovir (ZOVIRAX) 800 mg tablet Take 1 tablet by mouth five times daily for 10 days. mupirocin (BACTROBAN) 2 % ointment Apply 1 application to affected area three times daily. FAMILY HISTORY Problem Relation Age of Onset - Cancer Father Lung Cancer - Diabetes Mother - Leukemia [Other] [OTHER] Sister Social History Substance Use Topics - Smoking status: Never Smoker - Smokeless tobacco: Never Used - Alcohol use Yes Comment: Rarely ASSESSMENT/PLAN: 1. Herpes zoster with complication - ICD9: 053.8, ICD10: B02.8 - ACYCLOVIR 800 MG TABLET - MUPIROCIN 2 % TOPICAL OINTMENT The patient is instructed to return or seek emergency treatment if symptoms become worse or with any acute change in condition. The patient verbalizes understanding and is in agreement with plan of care. Millicent Young CNP ] CNOV Observed: 03/27/2018 Status: COMPLETED Source: VELMA 10:15 AM [facility] REPOSITORY Office Visit (WSTR) PEYMAN BLANDON I ([id number]) 1945 F Date Time Provider Department 03/27/18 10:15 AM MILLICENT YOUNG [facility] During your visit today, we recorded the following information about you: Temperature Pulse Respiration Blood pressure 99.1 degrees 70/minute 16/minute 140/90 Weight 65.3 kg Millicent Young APRN.CNP 03/27/2018 10:24 AM Signed Herpes Zoster Infection (Shingles) Herpes zoster infection, also called shingles, is caused by the chickenpox virus. When a person has chickenpox, he or she is never completely cured of the virus. The virus lives at the base of nerves under the skin, and the body's immune system usually keeps the infection confined there. However, sometimes the virus becomes active again, and produces blisters. Pain is usually the first sign of shingles, followed by blisters most often located over one side of the chest and back, or on one side of the face or neck. However, shingles can occur almost anywhere on the body. The blisters of shingles usually heal in about 3 weeks. Several medications can hasten healing slightly if given within the first 2 to 3 days. These medications are acyclovir (Zovirax), famcyclovir (Famvir), and valacyclovir (Valtrex). Occasionally, the pain of shingles lasts after the skin has healed. This is called postherpetic neuralgia. People over about 60 years of age are at greatest risk of this. Postherpetic neuralgia can be treated with oral medications for pain, a cream called Zosqix, and tricyclic antidepressants such as amitriptyline (Elavil). These tricyclic antidepressants are not used for their antidepressant actions, but rather for their beneficial effects on healing inflamed nerves. Postherpetic neuralgia usually disappears within six months. Millicent Young APRN.MAIL RIDER 03/27/2018 12:27 PM Signed Subjective HPI Pt presents with c/o rash on right side of face near mouth x 2 days. Teller mild pain prior to rash eruption. This am right lower lip was swollen and has rash as well, right inner cheek has lesions as well. Denies fever, drainage, honey colored crusting. Had chills intermittently yesterday and feels like I'm coming down with something. Concern for secondary infection as she scratched a couple lesions open. Hx chickenpox as a child. 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 Review of Systems Constitutional: Positive for chills. Negative for fever. Skin: Positive for rash. Negative for itching. Objective Physical Exam Constitutional: She is oriented to person, place, and time and well-developed, well-nourished, and in no distress. No distress. HENT: Head: Vesicular lesions to area noted. Right buccal mucosa with raised lesions as well. No drainage, heat, edema noted. Neurological: She is alert and oriented to person, place, and time. Skin: Skin is warm and dry. Rash noted. Rash is maculopapular. She is not diaphoretic. Norris, Maculopapular lesions scattered to areas noted. No burrows, no signs of secondary infection. No drainage, heat, edema. +blanching. BP 140/90 Pulse 70 Temp 37.3 ?C (99.1 ?F) (Left Tympanic) Resp 16 Wt 65.3 kg (144 lb) BMI 25.31 kg/m? .Patient presents with: Rash: on face getting worse PAST MEDICAL HISTORY Diagnosis Date - Esophageal reflux - Hyperparathyroidism - Other forms of migraine - Parathyroid adenoma - Senile osteoporosis PAST SURGICAL HISTORY Procedure Laterality Date - EXPLORE PARATHYROID GLANDS 2002 Removal parathyroid gland ALLERGIES Niacin; Ziemzkk-Lhq-Fom Reductase Inhibitors MEDICATIONS propranolol (INDERAL) 40 mg tablet Take 1 tablet by mouth twice daily. Cholecalciferol, Vitamin D3, 5,000 unit cap Take 1 capsule by mouth once daily. calcium carbonate (CALCIUM 600) 600 mg (1,500 mg) Tab Take 1 tablet twice daily acyclovir (ZOVIRAX) 800 mg tablet Take 1 tablet by mouth five times daily for 10 days. mupirocin (BACTROBAN) 2 % ointment Apply 1 application to affected area three times daily. FAMILY HISTORY Problem Relation Age of Onset - Cancer Father Lung Cancer - Diabetes Mother - Leukemia [Other] [OTHER] Sister Social History Substance Use Topics - Smoking status: Never Smoker - Smokeless tobacco: Never Used - Alcohol use Yes Comment: Rarely ASSESSMENT/PLAN: 1. Herpes zoster with complication - ICD9: 053.8, ICD10: B02.8 - ACYCLOVIR 800 MG TABLET - MUPIROCIN 2 % TOPICAL OINTMENT The patient is instructed to return or seek emergency treatment if symptoms become worse or with any acute change in condition. The patient verbalizes understanding and is in agreement with plan of care. Millicent Young CNP ] Referring Provider: SELF [[id number]] Allergies As of Date: 03/27/2018 Noted Allergy Reaction NIACIN 08/15/2014 14 - Other: See Comments Comments: extreme flushing [id number] REDUCTASE INHIBIT*01/31/2015 5 - Intolerance Date Reviewed: 03/27/2018 Reviewed by: Annie Tyson Ma - Fully Assessed Reason for Visit: Rash [1087] Cmt: on face getting worse Primary Visit Diagnosis:Herpes zoster with complication [B02.8] Order(s):acyclovir (ZOVIRAX) 800 mg tabletTake 1 tablet by mouth five times daily for 10 days.Disp: 50 tabletRfl: 0 mupirocin (BACTROBAN) 2 % ointmentApply 1 application to affected area three times daily.Disp: 22 gRfl: 0 Prescriptions as of 03/27/2018 Sig: PROPRANOLOL 40 MG TABLET Take 1 tablet by mouth twice * CHOLECALCIFEROL (VITAMIN D3) * Take 1 capsule by mouth once * CALCIUM CARBONATE 600 MG CALC* Take 1 tablet twice daily ACYCLOVIR 800 MG TABLET Take 1 tablet by mouth five t* MUPIROCIN 2 % TOPICAL OINTMENT Apply 1 application to affect* Problem List As Of Date 03/27/2018 Noted Resolved SENILE OSTEOPOROSIS [M81.0] Ingrowing Nail [L60.0] INVALID FOR*03/10/2010 Migraine [G43.909] INVALID FOR* GERD (Gastroesophageal Reflux Disease) [K21.9] INVALID FOR* Vitamin D Deficiency [E55.9] INVALID FOR* S/P parathyroidectomy [E89.2] INVALID FOR* Onychia and paronychia of toe [L03.039] INVALID FOR* Hyperlipidemia [E78.5] INVALID FOR* More... Headache(784.0) [R51] INVALID FOR* Other instructions from your clinician: Herpes Zoster Infection (Shingles) Herpes zoster infection, also called shingles, is caused by the chickenpox virus. When a person has chickenpox, he or she is never completely cured of the virus. The virus lives at the base of nerves under the skin, and the body's immune system usually keeps the infection confined there. However, sometimes the virus becomes active again, and produces blisters. Pain is usually the first sign of shingles, followed by blisters most often located over one side of the chest and back, or on one side of the face or neck. However, shingles can occur almost anywhere on the body. The blisters of shingles usually heal in about 3 weeks. Several medications can hasten healing slightly if given within the first 2 to 3 days. These medications are acyclovir (Zovirax), famcyclovir (Famvir), and valacyclovir (Valtrex). Occasionally, the pain of shingles lasts after the skin has healed. This is called postherpetic neuralgia. People over about 60 years of age are at greatest risk of this. Postherpetic neuralgia can be treated with oral medications for pain, a cream called Zosqix, and tricyclic antidepressants such as amitriptyline (Elavil). These tricyclic antidepressants are not used for their antidepressant actions, but rather for their beneficial effects on healing inflamed nerves. Postherpetic neuralgia usually disappears within six months. Prescriptions ordered this encounter Disp Refills Start End ACYCLOVIR 800 MG TABLET 50 t* 0 03/27/2018 04/06/2018 Route: ORAL Sig: Take 1 tablet by mouth five times daily for 10 days. MUPIROCIN 2 % TOPICAL OINTMENT 22 g 0 03/27/2018 Route: TOPICAL Sig: Apply 1 application to affected area three times daily. Encounter Status:Closed by MILLICENT YOUNG CNP on 03/27/18 ALLERGIES ALLERGIES DATE TYPE / CODE NAME / CODE REACTION SEVERITY SOURCE 06/09/2015 Drug No Known Unknown [place] Allergy/416 Allergies/S32156 [facility] 404166(SNOM 0388(RXNORM) Hospital ED CT) Repository 01/31/2015 Drug [id number] INTOLERANCE [facility] Class/09825 REDUCTASE [address] [place] [address](SNOMED INHIBITORS Repository CT) 08/15/2014 DRUG NIACIN OTHER: SEE C [facility] INGREDI/[address] [place] [id number](SNOM Repository ED CT) ENCOUNTERS ENCOUNTERS ADMIT/DISCHARGE ACCOUNT ADMITTING ENCOUNTER LOCATION SOURCE NUMBER CLASS 10/21/2018/10/21/20 [id number] Ambulatory [address] Repository 10/05/[id number] [facility] ing:OPBI Repository 09/14/2018/09/16/20 [id number] Ambulatory [address] Repository 08/25/2018/08/25/20 [id number] Ambulatory [address] Repository 06/18/2018/06/18/20 [id number] Ambulatory [address] Repository 05/05/2018/05/05/20 [id number] Ambulatory [address] Repository 05/05/2018/05/06/20 [id number] Ambulatory [address] Repository 03/27/2018/03/30/20 [id number] Ambulatory [address] Repository PAYERS PAYERS ENCOUNTER GUARANTOR PAYER SUBSCRIBER SOURCE 10/05/2018 Rah Parham Primary PEYMANJABIER MEEKS: Akilah [id number] Insurance:[employer] [id number] [facility] Number: [place], [place] [id number] Repository [id number]: 330) Date:[id number] [phone] () [id number], [place] [address]EY: 10/05/2018 Secondary NOT GIVENUNK Akilah Insurance:SELF PAY [facility] Number: Effective Repository Date:2018-08-27
== END ==
PROVIDERS: Family Provider Family Medicine; PCP Family Medicine; Visit Provider Obstetrics & Gynecology
DX: Z12.31 Encounter for screening mammogram for malignant neoplasm of breast (principal)
CPT/HCPCS: 77063; 77067

== ENCOUNTER → 2019-10-06 09:48 | Outpatient (CLI) | payer BC, SELFPAY ==
--- NOTE | 2019-10-06 09:51 | BI_ITS ---
MAMMOGRAPHY - BILATERAL SCREENING 3-D TOMOSYNTHESIS REASON FOR EXAM: Female, 74 years old. MAMMOGRAPHY - BILATERAL SCREENING REASON FOR EXAM: Female, 74 years old. Routine annual screening examination. PERTINENT HISTORY: Sister with breast cancer. TECHNIQUE: Digital bilateral breast gregg (3D mammographic acquisition) in the CC and MLO projections. 2-D mediolateral oblique (MLO) and craniocaudad (CC) views of both breasts were obtained. An exaggerated craniocaudad view of the right breast was obtained. CAD: Full Field Digital Mammography with Computer Added Detection was performed. COMPARISON: Comparison is made with prior study dated October 05, 2018, September 05, 2017 and August 23, 2016. FINDINGS: Breast Composition: The breasts are heterogeneously dense, which may obscure small masses. There are no dominant masses or suspicious calcifications. No other significant abnormalities are identified. There has been no significant change since the prior study. IMPRESSION: Stable bilateral screening mammogram. Yearly follow-up mammogram recommended. (A) ASSESSMENT CATEGORY: BIRADS Category 1: Negative. A letter regarding these results will be sent to the patient by the facility within 30 days. Approximately 10% of breast cancers are not detected by mammography. A normal mammogram should not delay biopsy of a clinically suspicious abnormality. [id number] PERTINENT HISTORY: No significant family history. TECHNIQUE: 2-D mammograms and 3-D Tomosynthesis of the breast (s) were performed. CAD was performed. COMPARISON: None. FINDINGS: The breast composition is Scattered benign calcifications are seen. No dense spiculated masses or suspicious microcalcifications are identified. No architectural distortion is identified. There is no skin thickening or retraction. There has been no significant change since the prior study. BI/SCREEN MAMM (CAD) W/GREGG BILAT IMPRESSION: No mammographic signs of malignancy. Routine yearly mammograms recommended. ASSESSMENT CATEGORY: BIRADS Category 1: Negative. A letter regarding these results will be sent to the patient by the facility within 30 days. FOLLOW UP RECOMMENDATION: Yearly follow up mammogram recommended. (A) Approximately 10% of breast cancers are not detected by mammography. A normal mammogram should not delay biopsy of a clinically suspicious abnormality. Electronically Signed: Hiren Santoyo, at 11:56 EST Tel , Service support ,
== END ==
PROVIDERS: Family Provider Family Medicine; PCP Family Medicine; Referring Provider Obstetrics & Gynecology; Visit Provider Obstetrics & Gynecology
DX: Z12.31 Encounter for screening mammogram for malignant neoplasm of breast (principal)
CPT/HCPCS: 77063; 77067

== ENCOUNTER 2020-07-31 00:24 | Emergency (ER) | payer BC, SELFPAY ==
[2020-07-31 00:25] VITALS: BP 181/110; PULSE 91; RESP 19; TEMP 36.7; O2SAT 96; BMI 26.9
[2020-07-31 00:30] VITALS: BP 159/106
--- NOTE | 2020-07-31 00:33 | EKG12_ITS ---
Test Reason : ABD PAIN Blood Pressure : / mmHG Vent. Rate : 087 BPM Atrial Rate : 087 BPM P-R Int : 190 ms QRS Dur : 070 ms QT Int : 372 ms P-R-T Axes : 059 003 044 degrees QTc Int : 447 ms Normal sinus rhythm Normal ECG Confirmed by TAMAR BERNAL, HANDY ([id number]), digital editor KATHLEEN CORTES ([id number]) on 08/01/2020 1:28:02 PM Referred By: MR Confirmed By:HANDY BOYLE MD
--- NOTE | 2020-07-31 00:34 | ED.VIS.GI ---
History of Present Illness Chief Complaint: Nausea/Vomiting - Abdominal Pain/Flank Pain Onset: Today Timing: Continuous Quality: - - Burning Worsened by: Nothing Relieved by: Nothing - Nausea/Vomiting/Emesis GI Symptom: Nausea, Vomiting Quality: Nonbilious. Negative for: Blood streaks Severity: Moderate - Diarrhea/Melena/Hematochezia GI Symptom: Negative for: Diarrhea Narrative: Patient presenting for evaluation secondary to nausea vomiting chest pain. Patient reports that she has a severe history of gastroesophageal reflux that she is dealt with since she was in her 30s. She reports that this can be offset by even eating bread. Patient reports that tonight she ate pizza and egg rolls, and started to have nausea and vomiting. She reports that she took antacids, and this did not seem to alleviate her symptoms. She reports that she has been having profuse emesis that is been associated with some chest pain. Mild shortness of breath. She denies any abdominal pain. She denies any cough fever diarrhea or any infectious type symptoms. Patient denies any history of cardiovascular disease. Review of systems otherwise negative. Past Medical History - Allergies and Home Meds Allergies/Adverse Reactions: Allergies acetaminophen [From Tylenol] Adverse Reaction (Verified 07/31/20 00:27) Upset Stomach Primary Care Physician: Richard Juarez MD [Primary Care Provider] - Past Medical History: - - GERD, hypertension Lives: Spouse/ Significant Other Smoking Status: Never smoker Alcohol: None Drugs: None Review of Systems All systems negative except as indicated General: Denies: Chills, Fever, Sweats Eyes: Denies: Visual changes - bilaterally, Diplopia ENT: Denies: Rhinorrhea, Sore throat Cardiovascular: Reports: Chest pain Respiratory: Denies: Dyspnea, Cough, Dyspnea on exertion Gastrointestinal: Reports: Abdominal pain, Nausea, Vomiting Genitourinary: Denies: Dysuria, Hematuria, Frequency Musculoskeletal: Denies: Back pain, Extremity Pain Skin: Denies: Rash, Wounds Neurological: Denies: Headache, Weakness, Numbness Physical Exam Vital Signs/Narrative: Vital Signs Temp Pulse Resp BP Pulse Ox 07/31/20 00:30 159/106 H 07/31/20 00:25 98.1 F 91 19 H 181/110 H 96 Inital Vital Signs reviewed: Yes General: Well nourished, Well developed, No Acute Distress Head: Normocephalic, Atraumatic Eyes: Perrl, EOMI ENT: Moist mucous membranes, No rhinorrhea Neck: Supple, Nontender Cardiovascular: Regular rate, Regular rhythm, No murmurs Respiratory: No distress, CTA bilaterally, Chest nontender Abdomen: Soft, Nontender, Nondistended, Normal bowel sounds. Negative for: Tender Back: Nontender, Normal Inspection Extremities: Nontender, No edema Skin: Normal color, No rash Neurological: Alert, Oriented x3, Cranial nerves II-XII grossly intact, Normal Strength, Normal Sensation Psychological: Normal affect, Normal Mood Diagnostic/Tx/Re-eval Clinical Impression(s) from Imaging Studies Chest X-Ray 07/31/20 02:13 IMPRESSION: Degenerative changes, as described above. No demonstrated acute cardiopulmonary process. Electronically Signed: Alex Clark, at 2:37 EDT Tel , Service support , Abdomen/Pelvis CT 07/31/20 02:44 IMPRESSION: Normal unenhanced CT of the abdomen and pelvis. Electronically Signed: Alex Clark, at 3:47 EDT Tel , Service support , Chest CT 07/31/20 02:44 IMPRESSION: There is a small hiatal hernia. Electronically Signed: Alex Clark at 3:53 EDT Tel , Service support , Laboratory Data 07/31/20 07/31/20 07/31/20 00:38 00:38 03:30 WBC 16.1 H RBC 4.39 Hgb 12.9 Hct 40.0 MCV 91.1 MCH 29.4 MCHC 32.3 RDW Std Deviation 40.9 RDW Coeff of Sulema 12.4 Plt Count 289 MPV 10.2 Immature Gran % (Auto) 0.400 Neut % (Auto) 79.9 H Lymph % (Auto) 11.8 L [place] % (Auto) 6.0 Eos % (Auto) 1.5 Baso % (Auto) 0.4 Absolute Neuts (auto) 12.8 H Absolute Lymphs (auto) 1.90 Nucleated RBC % 0 Sodium 139 Potassium 3.6 Chloride 103 Carbon Dioxide 30.0 Anion Gap 6 BUN 17 Creatinine 0.91 Estim Creat Clear Calc 46.13 Est GFR (MDRD) Af Amer 77 Est GFR (MDRD) Non-Af 64 BUN/Creatinine Ratio 18.7 Glucose 117 H Calcium 9.0 Total Bilirubin 0.40 AST 15 ALT 24 Alkaline Phosphatase 135 H Troponin I < 0.015 < 0.015 Total Protein 8.0 Albumin 3.6 Globulin 4.4 H Albumin/Globulin Ratio 0.8 L Lipase 87 - EKG Initial EKG Interpretation: - - Sinus rhythm of [address] segments normal T waves normal RI and QTc intervals no evidence of acute ischemia or arrhythmia. Follow-up EKG Interpretation: - - Repeat EKG shows no evidence of evolution, continued sinus rhythm with a ventricular rate of [address] segments normal upright T waves normal RI and QTc intervals no evidence of acute ischemia or arrhythmia. - Medical Decision Making Patient presented with nausea vomiting and chest pain. An EKG was obtained which was found to be within normal limits. IV was established laboratory studies were obtained. Patient was given a GI cocktail and Zofran and fluids. She had minimal to no improvement with this. Patient was given IV Pepcid. CBC demonstrates leukocytosis, chemistry and lipase unremarkable troponin found to be negative. Patient continues to have persistent symptoms that she states is chest pain going through to the back which is consistent with what her gastroesophageal reflux has been in the past. I did order chest xr on the patient, and ordered an additional dose of Maalox. 3-hour repeat troponin was ordered to rule out the possibility of occult coronary ischemia. Repeat EKG was ordered. Repeat EKG was found to be unremarkable. 3-hour delta troponin was found to be negative. Patient's chest x-ray to my personal review showed a questionable hiatal hernia, I was concerned for the possibility of gastric volvulus versus intestinal obstruction so CT of both the chest and abdomen and pelvis were ordered. It did demonstrate evidence of a small hiatal hernia but no other evidence of acute pathology. Patient was given morphine. Repeat evaluation of the patient at 0400 shows her to finally have symptomatic improvement. At this point the patient has had negative imaging, negative lab work, 2 negative cardiac troponins as well as 2 negative EKGs. Her heart score is a maximum of 3. I do not believe that she requires admission. This likely was a severe case of the patient's gastric reflux. Patient was recommended to continue her PPI and follow-up with primary care. ED Disposition - Plan for ED Patient: Disposition: Home or Assisted Living Diagnosis: GERD (gastroesophageal reflux disease) Instructions: Gastroesophageal Reflux Disease (GERD), ED Hiatal Hernia Referrals: Richard Juarez MD [Primary Care Provider] - 3-5 Days
[2020-07-31 00:43] LABS: Absolute Neutrophil Count 12.8 X10^3/uL (2.0-7.7); Basophil# 0.07 X10^3/uL; Basophil% 0.4 % (0-1); Eosinophil# 0.24 X10^3/uL; Eosinophils% 1.5 % (0-5); Hemoglobin 12.9 g/dL (12.0-15.0); Lymphocyte % 11.8 % (19-41); Mean Corp Hgb Conc 32.3 g/dL (32-36); Mean Corpuscular Hgb 29.4 pg (27.0-32.0); Mean Corpuscular Volume 91.1 fL (81-99); Mean Platelet Vol. 10.2 fl (6.2-12.0); Monocyte# 0.96 X10^3/uL; NRBC Flagged by Analyzer 0 % (0-5); Neutrophil # 12.81 X10^3/uL (2.7-7.7); Neutrophil % 79.9 % (47-70); Platelet Count 289 K/mm3 (150-450); RBC Distribution Width CV 12.4 % (11.6-14.6); RBC Distribution Width SD 40.9 fl (35.1-43.9); Red Blood Count 4.39 M/mm3 (4.2-5.4); White Blood Count 16.1 K/mm3 (4.4-11.0)
[2020-07-31] MEDS: Ondansetron 4 MG/2 ML Vial IV ×2 (00:45→01:23)
[2020-07-31] MEDS: Mag Hydrox/Al Hydrox/Simeth 30 ML UDC PO (00:45)
[2020-07-31] MEDS: 0.9% Normal Saline 1,000 ML 1000 ML IV (00:45)
[2020-07-31 00:50] VITALS: BP 144/84; PULSE 96; RESP 12; O2SAT 96
[2020-07-31 01:03] LABS: ALB/GLOB Ratio 0.8 RATIO (0.9-2.4); AST(SGOT) 15 U/L (15-37); Alanine Aminotransfer ALT/SGPT 24 U/L (13-56); Albumin, Serum 3.6 g/dL (3.2-5.0); Alkaline Phosphatase 135 U/L (45-117); Anion Gap 6 (5-15); BUN 17 mg/dL (7-18); BUN/Creat Ratio 18.7 RATIO (10-20); Chloride 103 mmol/L (98-107); Creatinine, Serum 0.91 mg/dL (0.55-1.02); EST Glomerular Filtration Rate 64 mL/min (>60); Est Glom Filt Rate - Afr Amer 77 mL/min (>60); Estimated Creatinine Clearance 46.13 ml/min; Globulin 4.4 g/dL (2.2-4.2); Glucose 117 mg/dL (74-106); Lipase 87 U/L (73-393); Potassium 3.6 mmol/L (3.5-5.1); Sodium Level 139 mmol/L (136-145)
--- NOTE | 2020-07-31 01:11 | EKG12_ITS ---
Test Reason : REPEAT Blood Pressure : / mmHG Vent. Rate : 095 BPM Atrial Rate : 095 BPM P-R Int : 190 ms QRS Dur : 074 ms QT Int : 360 ms P-R-T Axes : 058 011 050 degrees QTc Int : 452 ms Normal sinus rhythm Normal ECG Confirmed by TAMAR BERNAL, HANDY ([id number]), deputy editor in chief KATHLEEN CORTES ([id number]) on 08/01/2020 1:27:51 PM Referred By: MR Confirmed By:HANDY BOYLE MD
[2020-07-31] MEDS: Famotidine 200 MG/20 ML MDV 20 MG in 0.9% Normal Saline (Pres. free 8 ML 300 MG IV (01:18)
--- NOTE | 2020-07-31 02:13 | RAD_ITS ---
STUDY: X-RAY CHEST REASON FOR EXAM: Female, 74 years old. Chest pain, acid reflux, nausea. TECHNIQUE: Single AP portable view of the chest. COMPARISON: None. FINDINGS: The lungs are clear and expanded. There is no demonstrated pleural abnormality. Normal size heart. Normal mediastinum and connie. Normal visualized pulmonary arteries. Normal visualized aortic arch and descending thoracic aorta. Normal visualized thoracic spine. There is degenerative osteoarthritis of the bilateral shoulders. There is no demonstrated abnormality of the visualized soft tissue structures of the upper abdomen. RAD/Chest 1 View (Portable) IMPRESSION: Degenerative changes, as described above. No demonstrated acute cardiopulmonary process. Electronically Signed: Alex Clark, at 2:37 EDT Tel , Service support ,
[2020-07-31] MEDS: Mag Hydrox/Al Hydrox/Simeth 30 ML UDC 15 ML PO (02:15)
[2020-07-31 02:25] VITALS: BP 150/122; PULSE 101; RESP 22; O2SAT 94
--- NOTE | 2020-07-31 02:44 | CT_ITS ---
STUDY: CT CHEST WITH CONTRAST REASON FOR EXAM: Female, 74 years old. HIATAL HERNIA/CP/NAUSEA. HTN. Parathyroid removed RADIATION DOSAGE (If Supplied By Facility): CTDIvol = ( 12.72 ) mGy, DLP = ( 1156.88 ) mGycm TECHNIQUE: Transaxial imaging was performed following intravenous administration of IV 100mL Isovue-300. Individualized dose optimization techniques were used for this CT. COMPARISON: None. FINDINGS: There is dependent atelectasis in the lung bases. There is no demonstrated pleural abnormality. Normal heart and pericardium. Normal mediastinum. Normal hilar regions. Normal enhanced pulmonary arteries. Normal aorta arch and descending thoracic aorta. Normal osseous structures. There is a small hiatal hernia. CT/Chest WITH Contrast IMPRESSION: There is a small hiatal hernia. Electronically Signed: Alex Clark, at 3:53 EDT Tel , Service support ,
--- NOTE | 2020-07-31 02:44 | CT_ITS ---
STUDY: CT ABDOMEN AND PELVIS WITHOUT CONTRAST REASON FOR EXAM: Female, 74 years old. HIATAL HERNIA/CP/NAUSEA. HTN. Parathyroid removed RADIATION DOSAGE (If Supplied By Facility): CTDIvol = ( 12.72 ) mGy, DLP = ( 1156.88 ) mGycm TECHNIQUE: Transaxial images were obtained from the dome of the diaphragm to the symphysis pubis without oral contrast, and without intravenous contrast. Sagittal and coronal images were reconstructed. Individualized dose optimization techniques were used for this CT. COMPARISON: None. FINDINGS: There is dependent atelectasis in the right and left lung lower lobes. The visualized portions of the heart are within normal limits. Normal liver. Normal gallbladder and extrahepatic biliary system. Normal spleen. Normal pancreas. Normal bilateral adrenal glands. Normal right kidney. Normal left kidney. Normal visualized stomach. Normal small intestine. Normal colon. There is non-visualization of the appendix. Normal abdominal aorta. Normal inferior vena cava. Normal retroperitoneum. Normal urinary bladder. Normal abdominal wall. There are diffuse degenerative changes of the visualized lumbar spine. CT/Abdomen/Pelvis W IV Cont ONLY IMPRESSION: Normal unenhanced CT of the abdomen and pelvis. Electronically Signed: Alex Clark, at 3:47 EDT Tel , Service support ,
[2020-07-31 03:00] VITALS: BP 133/73; PULSE 94; RESP 22; O2SAT 95
[2020-07-31] MEDS: Morphine 4 MG/ML Syringe IV (03:49)
[2020-07-31 04:44] VITALS: BP 113/57; PULSE 98; RESP 13; O2SAT 92
== END 2020-07-31 04:47 | disposition home or self-care (01) ==
PROVIDERS: Emergency Provider Emergency Medicine; PCP Family Medicine
DX: K21.9 Gastro-esophageal reflux disease without esophagitis (principal); I10 Essential (primary) hypertension; Z79.899 Other long term (current) drug therapy
CPT/HCPCS: 71045; 71260; 74177; 80053; 83690; 84484; 85025; 93005; 96361; 96374; 96375; 99285; J7030; Q9967; A4216; J2405; J3490

== ENCOUNTER → 2020-10-27 15:31 | Outpatient (CLI) | payer BC, SELFPAY ==
--- NOTE | 2020-10-27 15:33 | BI_ITS ---
MAMMOGRAPHY - BILATERAL SCREENING REASON FOR EXAM: Female, 75 years old. Routine annual screening examination. PERTINENT HISTORY: Sister with breast cancer. TECHNIQUE: Digital bilateral breast gregg (3D mammographic acquisition) in the CC and MLO projections. 2-D mediolateral oblique (MLO) and craniocaudad (CC) views of both breasts were obtained. CAD: Full Field Digital Mammography with Computer Added Detection was performed. COMPARISON: Comparison is made with prior study dated 10/06/2019 and 10/05/2018. FINDINGS: Breast Composition: The breasts are heterogeneously dense, which may obscure small masses. There are no dominant masses or suspicious calcifications. No other significant abnormalities are identified. There has been no significant change since the prior study. BI/SCREEN MAMM (CAD) W/GREGG BILAT IMPRESSION: Stable bilateral screening mammogram. Yearly follow-up mammogram recommended. (A) ASSESSMENT CATEGORY: BIRADS Category 1: Negative. A letter regarding these results will be sent to the patient by the facility within 30 days. Approximately 10% of breast cancers are not detected by mammography. A normal mammogram should not delay biopsy of a clinically suspicious abnormality. [id number] Electronically Signed: Kurt Camacho, at 8:28 EST , Service support ,
== END ==
PROVIDERS: PCP Family Medicine; Referring Provider Obstetrics & Gynecology; Visit Provider Obstetrics & Gynecology
DX: Z12.31 Encounter for screening mammogram for malignant neoplasm of breast (principal)
CPT/HCPCS: 77063; 77067

== ENCOUNTER 2020-12-22 13:11 | Outpatient (RCR) | payer BC, SELFPAY | END 2020-12-22 23:59 | LOC: IMMUN 13:11 | PROVIDERS: PCP Family Medicine; Referring Provider Family Medicine; Visit Provider Family Medicine | DX: Z23 Encounter for immunization (principal) | CPT/HCPCS: 0011A; 0012A ==

== ENCOUNTER → 2021-10-29 09:34 | Outpatient (CLI) | payer BC, SELFPAY ==
--- NOTE | 2021-10-29 09:37 | BI_ITS ---
MAMMOGRAPHY - BILATERAL SCREENING REASON FOR EXAM: Female, 76 years old. Routine annual screening examination. PERTINENT HISTORY: Sister with breast cancer. TECHNIQUE: Digital bilateral breast gregg (3D mammographic acquisition) in the CC and MLO projections. 2-D mediolateral oblique (MLO) and craniocaudad (CC) views of both breasts were obtained. Exaggerated craniocaudad views of both breasts were obtained. CAD: Full Field Digital Mammography with Computer Added Detection was performed. COMPARISON: Comparison is made with prior study dated 10/27/2020 and 10/06/2019. FINDINGS: Breast Composition: The breasts are heterogeneously dense, which may obscure small masses. There are no dominant masses or suspicious calcifications. Stable benign-appearing bilateral axillary lymph nodes. No other significant abnormalities are identified. There has been no significant change since the prior study. BI/SCRN MAMM (CAD)W/GREGG BILAT IMPRESSION: Stable bilateral screening mammogram. Yearly follow-up mammogram recommended. (A) ASSESSMENT CATEGORY: BIRADS Category 2: Benign. A letter regarding these results will be sent to the patient by the facility within 30 days. Approximately 10% of breast cancers are not detected by mammography. A normal mammogram should not delay biopsy of a clinically suspicious abnormality. [id number] Electronically Signed: Kurt Camacho MD at 10:50 EST , Service support ,
== END ==
PROVIDERS: PCP Family Medicine; Visit Provider Obstetrics & Gynecology
DX: Z12.31 Encounter for screening mammogram for malignant neoplasm of breast (principal)
CPT/HCPCS: 77063; 77067

== ENCOUNTER 2024-01-06 05:35 | Emergency (ER) | payer OTHER, SELFPAY ==
[2024-01-06] VITALS (9 sets, daily range): BP systolic 123–177; BP diastolic 65–99; PULSE 76–93; RESP 15–20; TEMP 36.6–37.2; O2SAT 96–99; BMI 27.0
--- NOTE | 2024-01-06 05:43 | EKG12_ITS ---
Test Reason : CP Blood Pressure : / mmHG Vent. Rate : 077 BPM Atrial Rate : 077 BPM P-R Int : 162 ms QRS Dur : 076 ms QT Int : 374 ms P-R-T Axes : 044 -07 030 degrees QTc Int : 423 ms Normal sinus rhythm Minimal voltage criteria for LVH, may be normal variant ( R in aVL ) Borderline ECG Confirmed by Pietro Miller [id number]), editorial director LAZARUS PEREIRA ([id number]) on 01/13/2024 9:46:36 AM Referred By: Confirmed By:Pietor Miller
--- NOTE | 2024-01-06 05:43 | RAD_ITS ---
EXAM: XR CHEST, 2 VIEWS CLINICAL INDICATION: chest pain chest pain TECHNIQUE: Frontal and lateral views of the chest. COMPARISON: CT scan chest 07/31/2020. FINDINGS: LUNGS AND PLEURAL SPACES: Unremarkable. No consolidation or edema. No pneumothorax. No effusion. HEART: Unremarkable. Cardiac silhouette not enlarged. MEDIASTINUM: Central airways and mediastinal contour are unremarkable. BONES/JOINTS: Unremarkable. No acute fracture. SOFT TISSUES: Unremarkable. RAD/Chest PA and Lateral IMPRESSION: No radiographic evidence of acute cardiopulmonary disease. Electronically Signed: Elliot Solorio MD at 7:12 EST Reading Location ID and State: [facility] / [place] , Service support ,
[2024-01-06] MEDS: Nitroglycerin SL (ED/IMG/CATH) 0.4 MG TABLET 0.400000000000000022 MG SL ×3 (05:55→06:05)
[2024-01-06 06:01] LABS: Absolute Lymphocyte Count 2.14 X10^3/uL (0.83-4.51); Absolute Neutrophil Count 7.3 X10^3/uL (2.0-7.7); Basophil# 0.08 X10^3/uL; Basophil% 0.7 % (0-1); Eosinophil# 0.26 X10^3/uL; Eosinophils% 2.4 % (0-5); Hematocrit 39.9 % (37-47); Lymphocyte # 2.14 X10^3/ul (0.83-4.51); Mean Corp Hgb Conc 32.6 g/dL (32-36); Mean Corpuscular Hgb 29.9 pg (27.0-32.0); Mean Corpuscular Volume 91.7 fL (81-99); Mean Platelet Vol. 10.8 fl (6.2-12.0); Monocyte% 8.4 % (0-10); NRBC Flagged by Analyzer 0 % (0-5); Neutrophil # 7.29 X10^3/uL (2.7-7.7); Neutrophil % 68.1 % (47-70); Platelet Count 294 K/mm3 (150-450); RBC Distribution Width CV 12.6 % (11.6-14.6); RBC Distribution Width SD 42.5 fl (35.1-43.9); Red Blood Count 4.35 M/mm3 (4.2-5.4); White Blood Count 10.7 K/mm3 (4.4-11.0)
[2024-01-06] MEDS: Ondansetron 4 MG/2 ML Vial IV (06:17)
[2024-01-06 06:20] LABS: Anion Gap 3 (5-15); BUN 18 mg/dL (7-18); BUN/Creat Ratio 15.4 RATIO (10-20); Calcium,Total 9.1 mg/dL (8.5-10.1); Chloride 104 mmol/L (98-107); Creatinine, Serum 1.17 mg/dL (0.55-1.02); EST Glomerular Filtration Rate 47 mL/min (>60); Est Glom Filt Rate - Afr Amer 57 mL/min (>60); Estimated Creatinine Clearance 37.78 ml/min; Glucose 109 mg/dL (74-106); Lipase 29 U/L (13-75); Potassium 4.2 mmol/L (3.5-5.1); Sodium Level 138 mmol/L (136-145); Troponin-I HS (w/2H Reflex) 33 pg/mL (3.0-54.0)
--- OUTSIDE RECORDS SUMMARY | 2024-01-06 06:32 | XMS RPT_ITS | CCD ---
Author Name Unknown Address [address] [place] [address] Organization [facility] Care Team Providers Care Orthophoto Tech/Draftsman Name Role Phone Silverio Gale MD Primary Care Provider [phone] SILVERIO GALE Primary Care Unavailable MARIA VICTORIA MIDDLETON Referring Unavailable ADRIENNE CHAVEZ Attending Unavaila SILVERIO Ivey Primary Care Unavailable SILVERIO GALE Primary Care Unavailable SILVERIO GALE Attending Unavailable MARIA VICTORIA MIDDLETON Attending Unavailable SILVERIO GALE Primary Care Unavailable SILVERIO GALE Primary Care Unavailable MARIA VICTORIA MIDDLETON Attending Unavailable SILVERIO GALE Primary Care Unavailable MARIA VICTORIA MIDDLETON Attending Unavailable SILVERIO GALE Primary Care Unavailable SILVERIO GALE Attending Unavailable SILVERIO GALE Primary Care Unavailable SILVERIO GALE Referring Unavailable Allergies Allergy Classification Reported Allergen(s) Allergy Type Date of Onset Reaction(s) Facility (2 sources) HMG-CoA reductase inhibitor; Translations: [TLPUCTC-CYQ-OM A REDUCTASE INHIBITORS] Drug Intolerance 5 Intolerance [facility] (20 sources) Morphine; Translations: [MORPHINE] Drug Allergy 2 Other: See Comments [facility] (20 sources) Niacin; Translations: [NIACIN] Drug Allergy 4 Other: See Comments [facility] (20 sources) HMG-CoA reductase inhibitor Drug Intolerance 5 Intolerance [facility] (20 sources) Acetaminophen; Translations: [ACETAMINOPHEN] Drug Allergy 0 Other: See Comments [facility] Medications Current Medications Medication Drug Class(es) Dates Sig (Normalized) Sig (Original) predniSONE 10 mg oral tablet (2 sources) Start: 06-17-2023 End: 06-22-2023 take 3 tablets by mouth once daily predniSONE (DELTASONE) 10 mg tablet Take 3 tablets by mouth once daily for 5 days. 15 tablet 0 06/17/2023 06/22/2023 Active Completed/Discontinued Medications Medication Drug Class(es) Dates Sig (Normalized) Sig (Original) calcium carbonate 1500 mg oral tablet (20 sources) Start: 08-04-2013 calcium carbonate (CALTRATE) 600 mg calcium (1,500 mg) tab Indications: Senile osteoporosis 600 mg once daily. 0 08/04/2013 Active Problems Active Problems Problem Classification Problem Date Documented Date Episodic/Chronic Allergic reactions (2 sources) Allergic contact dermatitis caused by plant material; Translations: [Allergic contact dermatitis due to plants, except food] Episodic Complications of surgical procedures or medical care (20 sources) History of parathyroidectomy; Translations: [Postprocedural hypoparathyroidism] Onset: 08-22-2010 08-22-2010 Chronic Diabetes mellitus without complication (2 sources) Hyperglycemia; Translations: [Hyperglycemia, unspecified] Episodic Disorders of lipid metabolism (20 sources) Hyperlipidemia; Translations: [Hyperlipidemia, unspecified] Onset: 02-26-2012 11-05-2021 Chronic Esophageal disorders (20 sources) Gastroesophageal reflux disease without esophagitis; Translations: [Gastro-esophageal reflux disease without esophagitis] Onset: 03-10-2010 Chronic Essential hypertension (20 sources) Essential hypertension; Translations: [Essential (primary) hypertension] Onset: 09-11-2020 09-11-2020 Chronic Headache; including migraine (20 sources) Migraine with aura; Translations: [Migraine with aura, not intractable, without status migrainosus] Onset: 03-10-2010 09-14-2018 Chronic Immunizations and screening for infectious disease (3 sources) Patient encounter status; Translations: [Encounter for immunization] Episodic Nausea and vomiting (1 source) Vomiting without nausea; Translations: [Vomiting without nausea] Episodic Nonspecific chest pain (1 source) Non-cardiac chest pain; Translations: [Other chest pain] Episodic Nutritional deficiencies (20 sources) Vitamin D deficiency; Translations: [Vitamin D deficiency, unspecified] Onset: 03-10-2010 03-10-2010 Chronic Osteoporosis (20 sources) Senile osteoporosis; Translations: [Age-related osteoporosis without current pathological fracture] 08-08-2005 Chronic Other diseases of kidney and ureters (2 sources) Abnormal renal function; Translations: [Disorder of kidney and ureter, unspecified] Episodic Other lower respiratory disease (2 sources) Hiccoughs; Translations: [Hiccough] 09-22-2023 Episodic Other upper respiratory disease (1 source) Hoarse; Translations: [Dysphonia] 12-22-2023 Episodic Past or Other Problems Problem Classification Problem Date Documented Date Episodic/Chronic Residual codes; unclassified (20 sources) Other specified health status; Translations: [Other drug allergy] Onset: 09-14-2018 09-14-2018 Episodic Residual codes; unclassified (1 source) History of parathyroidectomy; Translations: [Other specified postprocedural states] Onset: 08-22-2010 08-22-2010 Episodic Results Test Name Value Interpretation Reference Range Facil ity Vital Signs Date Time Vital Sign Value Performing Clinician Faci lity 12-22-2023 10:47-0500 Body height 162.6 cm Mari Avictoria Middleton PA-C Work Phone: [facility] 12-22-2023 10:47-0500 Body weight 73.39 kg Maria Victoria Middleton PA-C Work Phone: [facility] 12-22-2023 10:47-0500 Diastolic blood pressure 74 mm[Hg] Maria Victoria Middleton PA-C Work Phone: [facility] 12-22-2023 10:47-0500 Heart rate 60 /min Maria Victoria Middleton PA-C Work Phone: [facility] 12-22-2023 10:47-0500 Systolic blood pressure 156 mm[Hg] Maria Victoria Middleton PA-C Work Phone: [facility] 09-22-2023 10:47-0500 Body height 162.6 cm Maria Victoria Middleton PA-C Work Phone: [facility] 09-22-2023 10:47-0500 Body weight 70.76 kg Maria Victoria Middleton PA-C Work Phone: [facility] 09-22-2023 10:47-0500 Diastolic blood pressure 82 mm[Hg] Maria Victoria Middleton PA-C Work Phone: [facility] 09-22-2023 10:47-0500 Heart rate 62 /min Maria Victoria Isak PA-C Work Phone: [facility] 09-22-2023 10:47-0500 Systolic blood pressure 162 mm[Hg] Maria Victoria Isak PA-C Work Phone: [facility] 08-20-2023 11:03-0400 Body height 162.6 cm Silverio Gale MD Work Phone: [facility] 08-20-2023 11:03-0400 Body weight 70.31 kg Silverio Gale MD Work Phone: [facility] 08-20-2023 11:03-0400 Diastolic blood pressure 79 mm[Hg] Silverio Gale MD Work Phone: [facility] 08-20-2023 11:03-0400 Heart rate 50 /min Silverio Gale MD Work Phone: [facility] 08-20-2023 11:03-0400 SaO2% (BldA) [Mass fraction] 99 % Silverio Gale MD Work Phone: [facility] 08-20-2023 11:03-0400 Systolic blood pressure 156 mm[Hg] Silverio Gale MD Work Phone: [facility] 06-17-2023 15:25-0400 Body temperature 97.59 [degF] Richard Ovalle DAY CARE ASSISTANT.TUBE REBUILDER Work Phone: [facility] 06-17-2023 15:25-0400 Body weight 70.76 kg Richard Ovalle DAY CARE ASSISTANT.TUBE REBUILDER Work Phone: [facility] 06-17-2023 15:25-0400 Diastolic blood pressure 68 mm[Hg] Richard Ovalle DAY CARE ASSISTANT.TUBE REBUILDER Work Phone: [facility] 06-17-2023 15:25-0400 Heart rate 72 /min Richard Ovalle DAY CARE ASSISTANT.TUBE REBUILDER Work Phone: [facility] 06-17-2023 15:25-0400 Respiratory rate 18 /min Richard Aldridgekentrell DAY CARE ASSISTANT.TUBE REBUILDER Work Phone: [facility] 06-17-2023 15:25-0400 SaO2% (BldA) [Mass fraction] 97 % [facility] ASSIST[facility].TUBE REBUILDER Work Phone: [facility] 06-17-2023 15:25-0400 Systolic blood pressure 136 mm[Hg] Richard Aldridgekentrell DAY CARE ASSISTANT.TUBE REBUILDER Work Phone: [facility] 01-13-2023 10:37-0500 Body height 162.6 cm Maria Victoria Trace PA-C Work Phone: [facility] 01-13-2023 10:37-0500 Body weight 70.31 kg Maria Victoria Trace PA-C Work Phone: [facility] 01-13-2023 10:37-0500 Diastolic blood pressure 72 mm[Hg] Maria Victoria Trace PA-C Work Phone: [facility] 01-13-2023 10:37-0500 Heart rate 57 /min Maria Victoria Trace PA-C Work Phone: [facility] 01-13-2023 10:37-0500 Systolic blood pressure 128 mm[Hg] Maria Victoria Trace PA-C Work Phone: [facility] 10-24-2022 14:23-0500 Body height 162.6 cm Silverio Gale MD Work Phone: [facility] 10-24-2022 14:23-0500 Body weight 71.22 kg Silverio Gale MD Work Phone: [facility] 10-24-2022 14:23-0500 Diastolic blood pressure 79 mm[Hg] Silverio Gale MD Work Phone: [facility] 10-24-2022 14:23-0500 Heart rate 62 /min Silverio Gale MD Work Phone: [facility] 10-24-2022 14:23-0500 Systolic blood pressure 157 mm[Hg] Silverio Gale MD Work Phone: [facility] 10-14-2022 10:11-0500 Body height 162.6 cm Maria Victoria Trace PA-C Work Phone: [facility] 10-14-2022 10:11-0500 Body weight 70.9 kg Maria Victoria Trace PA-C Work Phone: [facility] 10-14-2022 10:11-0500 Diastolic blood pressure 81 mm[Hg] Maria Victoria Trace PA-C Work Phone: [facility] 10-14-2022 10:11-0500 Heart rate 52 /min Maria Victoria Trace PA-C Work Phone: [facility] 10-14-2022 10:11-0500 Systolic blood pressure 152 mm[Hg] Maria Victoria Trace PA-C Work Phone: [facility] 10-07-2022 10:08-0500 Diastolic blood pressure 84 mm[Hg] Nurse Work Phone: [facility] 10-07-2022 10:08-0500 Heart rate 56 /min Nurse Work Phone: [facility] 10-07-2022 10:08-0500 Systolic blood pressure 153 mm[Hg] Nurse Work Phone: [facility] 10-07-2022 09:59-0500 SaO2% (BldA) [Mass fraction] 95 % Nurse Work Phone: [facility] 09-12-2022 15:15-0400 Diastolic blood pressure 84 mm[Hg] Samantha Llanos DAY CARE ASSISTANT.TUBE REBUILDER Work Phone: [facility] 09-12-2022 15:15-0400 Systolic blood pressure 164 mm[Hg] Samantha Llanos DAY CARE ASSISTANT.TUBE REBUILDER Work Phone: [facility] 09-12-2022 14:59-0400 Body height 162.6 cm Samantha Viet DAY CARE ASSISTANT.TUBE REBUILDER Work Phone: [facility] 09-12-2022 14:59-0400 Body weight 70.31 kg Samantha Viet DAY CARE ASSISTANT.TUBE REBUILDER Work Phone: [facility] 09-12-2022 14:59-0400 Heart rate 58 /min Samantha Viet DAY CARE ASSISTANT.TUBE REBUILDER Work Phone: [facility] 09-02-2022 10:06-0400 Body height 162.6 cm Maria Victoria Trace PA-C Work Phone: [facility] 09-02-2022 10:06-0400 Body weight 71.12 kg Maria Victoria Trace PA-C Work Phone: [facility] 09-02-2022 10:06-0400 Diastolic blood pressure 86 mm[Hg] Maria Victoria Trace PA-C Work Phone: [facility] 09-02-2022 10:06-0400 Heart rate 68 /min Maria Victoria Trace PA-C Work Phone: [facility] 09-02-2022 10:06-0400 Systolic blood pressure 162 mm[Hg] Maria Victoria Trace PA-C Work Phone: [facility] 06-19-2022 13:36-0400 Body temperature 97.59 [degF] Josefa Athy PA-C Work Phone: [facility] 06-19-2022 13:36-0400 Body weight 70.49 kg Josefa Athy PA-C Work Phone: [facility] 06-19-2022 13:36-0400 Diastolic blood pressure 74 mm[Hg] Josefa Athy PA-C Work Phone: [facility] 06-19-2022 13:36-0400 Heart rate 76 /min Josefa Athy PA-C Work Phone: [facility] 06-19-2022 13:36-0400 Respiratory rate 20 /min Josefa Athy PA-C Work Phone: [facility] 06-19-2022 13:36-0400 SaO2% (BldA) [Mass fraction] 97 % Josefa Heard PA-C Work Phone: [facility] 06-19-2022 13:36-0400 Systolic blood pressure 120 mm[Hg] Josefa Heard PA-C Work Phone: [facility] 03-08-2022 10:36-0400 Body height 162.6 cm Adrienne Chavez MD Work Phone: [facility] 03-08-2022 10:36-0400 Body weight 70.31 kg Adrienne Chavez MD Work Phone: [facility] 03-08-2022 10:36-0400 Diastolic blood pressure 82 mm[Hg] Adrienne Chavez MD Work Phone: [facility] 03-08-2022 10:36-0400 Heart rate 64 /min Adrienne Chavez MD Work Phone: [facility] 03-08-2022 10:36-0400 Systolic blood pressure 140 mm[Hg] Adrienne Chavez MD Work Phone: [facility] Encounters Encounter Date Encounter Type Care Provider Facility Start: 12-22-2023 End: 12-22-2023 ambulatory SILVERIO GALE Facility:[facility] Start: 12-22-2023 End: 12-22-2023 Patient encounter procedure Maria Victoria Middleton PA-C Work Phone: [facility] Procedures Date Procedure Procedure Detail Performing Clinician Start: 08-20-2023 INFLUENZA VACCINE, P RSV FREE, AGE 65+ YR, HIGH DOSE, QUADRIVALENT (FLUZONE HIGH-DOSE) Silverio Gale MD Work Phone: Start: 08-20-2023 [email or web address] COVI D-19 VACCINE ( SEASON) AGE 12+ YR Silverio Gale MD Work Phone: Start: 09-12-2022 INFLUENZA SEASONAL QUADRIVALENT HIGH DOSE AGE 65+ Samantha Llanos DONA.TUBE REBUILDER Work Phone: Start: 09-12-2021 Adult depression scr eening assessment Adrienne Chavez MD Work Phone: Plan of Treatment Date Care Activity Detail Author Start: 08-14-2026 Diabetes Screening Diabetes Screening [facility] Start: 09-09-2025 DIABETES SCREEN DIABETES SCREEN [facility] Start: 09-05-2024 Fecal Occult Blood Fecal Occult Blood [facility] Start: 09-05-2024 Screening for malignant neoplasm of colon Fecal Occult Blood [facility] Start: 08-20-2024 Annual PCP Team Chronic Disease Visit Annual PCP Team Chronic Disease Visit [facility] Start: 02-20-2024 ANNUAL PCP TEAM CHRONIC DISEASE VISIT ANNUAL PCP TEAM CHRONIC DISEASE VISIT [facility] Start: 01-14-2024 BP CONTROLLED (<130/80) BP CONTROLLED (<130/80) [facility] Start: 11-10-2023 Advance Directive Discussion Advance Directive Discussion [facility] Start: 11-10-2023 Depression Assessment Depression Assessment [facility] Start: 10-24-2023 ANNUAL PCP TEAM CHRONIC DISEASE VISIT ANNUAL PCP TEAM CHRONIC DISEASE VISIT [facility] Start: 09-12-2023 ANNUAL PCP TEAM CHRONIC DISEASE VISIT ANNUAL PCP TEAM CHRONIC DISEASE VISIT [facility] Start: 09-06-2023 DIABETES SCREEN DIABETES SCREEN [facility] Start: 07-11-2023 Influenza vaccination INFLUENZA (#1) [facility] Start: 06-21-2023 COVID-19 VACCINE (6 - Moderna series) COVID-19 VACCINE (6 - Moderna series) [facility] Start: 06-19-2023 BP CONTROLLED (<130/80) BP CONTROLLED (<130/80) [facility] Start: 11-10-2022 ADVANCE DIRECTIVE DISCUSSION ADVANCE DIRECTIVE DISCUSSION [facility] Start: 11-10-2022 DEPRESSION ASSESSMENT DEPRESSION ASSESSMENT [facility] Start: 10-24-2022 End: 12-24-2022 Basic metabolic 2000 panel - Serum or Plasma BASIC METABOLIC PNL Lab Routine Essential hypertension Abnormal kidney function Expected: 10/24/2022, Expires: 12/24/2022 [facility] Work Phone: Immunizations Immunization Date Immunization Notes Care Provider Fa cility 08-20-2023 COVID-19 vaccine, ag e 12+ yr, season (PFIZER-BIONTECH) Silverio Gale MD Work Phone: [facility] 08-20-2023 influenza (HD-IIV4) vaccine, age 65+ yr, high dose, quadrivalent, PF (FLUZONE HIGH-DOSE) Silverio Gale MD Work Phone: [facility] 02-19-2023 COVID-19 vaccine, ag e 12+ yr, bivalent (PFIZER-BIONTECH) Richard Ovalle DAY CARE ASSISTANT.TUBE REBUILDER Work Phone: [facility] 09-12-2022 influenza, high-dose , quadrivalent vaccine (FLUZONE HIGH DOSE QUADRIVALENT) Samantha Llanos DAY CARE ASSISTANT.TUBE REBUILDER Work Phone: [facility] 09-12-2021 influenza, high-dose , quadrivalent vaccine (FLUZONE HIGH DOSE QUADRIVALENT) Adrienne Chavez MD Work Phone: [facility] 08-26-2020 influenza (aIIV4) vaccine, age 65+ yr, quadrivalent, PF (FLUAD QUADRIVALENT) Adrienne Chavez MD Work Phone: [facility] 06-24-2020 zoster vaccine recombinant Adrienne Chavez MD Work Phone: [facility] 12-18-2019 zoster vaccine recombinant Adrienne Chavez MD Work Phone: [facility] 09-14-2019 influenza, high dose seasonal, preservative-free Adrienne Chavez MD Work Phone: [facility] 09-14-2018 influenza, high dose seasonal, preservative-free Adrienne Chavez MD Work Phone: [facility] 08-22-2017 influenza, high dose seasonal, preservative-free Adrienne Chavez MD Work Phone: [facility] 08-20-2016 influenza, high dose seasonal, preservative-free Adrienne Chavez MD Work Phone: [facility] 08-15-2015 influenza, high dose seasonal, preservative-free Adrienne Chavez MD Work Phone: [facility] 08-15-2015 pneumococcal conjuga te vaccine, 13 valent Adrienne Chavez MD Work Phone: [facility] 08-15-2014 influenza, high dose seasonal, preservative-free Adrienne Chavez MD Work Phone: [facility] 08-15-2014 tetanus and diphther ia toxoids, adsorbed, preservative free, for adult use (5 Lf of tetanus toxoid and 2 Lf of diphtheria toxoid) Adrienne Chavez MD Work Phone: [facility] 08-04-2013 influenza virus vacc ine, unspecified formulation Adrienne Chavez MD Work Phone: [facility] 08-19-2012 influenza virus vacc ine, unspecified formulation Adrienne Chavez MD Work Phone: [facility] Work Phone: 2011 zoster vaccine, live Adrienne Chavez MD Work Phone: [facility] Work Phone: 08-27-2011 influenza virus vacc ine, unspecified formulation Adrienne Chavez MD Work Phone: [facility] 08-27-2011 pneumococcal polysaccharide vaccine, 23 valent Adrienne Chavez MD Work Phone: [facility] Payers Date Payer Category Payer Unknown [id number] 2022 Private Health Insurance [id number] 2022 Private Health Insurance [id number] 2019 Unknown [employer]EL [employer] PPO [id number] 2019-Present [phone] [id number] [place] [address] PPO [id number] Social History Date Type Detail Facility Start: 06-19-2022 Tobacco smoking stat us TNIS Never smoked tobacco [facility] Start: 03-08-2022 End: 12-22-2023 Alcohol intake Ex-drinker (finding) [facility] Start: 09-26-2008 History SDOH Alcohol Comment Rarely [facility] Start: 1945 Sex Assigned At Not on file [facility] Start: 02-26-2022 End: 10-14-2022 Exposure to SARS-CoV-2 (event) Not sure [facility] Start: 06-19-2022 Tobacco use and exposure Smokeless tobacco non-user [facility] Start: 06-17-2023 End: 08-20-2023 History of Social function [facility] Work Phone: Start: 06-17-2023 End: 08-20-2023 Tobacco use panel [facility] Work Phone: Adult Depression Screening Assessment 0 [facility] Work Phone: Clinical Notes 03-22-2014 to 12-22-2023 Maria Victoria Middleton PA-C - 12/22/2023 10:46 AM ESTTelephone Encounter - Janiya Edmondson Ma - 10/16/2023 12:55 PM ESTPatient InstructionsMoMaria Victoria fulton PA-C - 09/22/2023 10:46 AM EST Note Date & Type Note Facility 12-22-2023 Note HNO ID: [id number] Author: MARIA VICTORIA MIDDLETON PA-C Service: ? Author Type: Physician Medication Care Manager Type: Progress Notes Filed: 12/22/2023 11:06 Note Text: CHIEF COMPLAINT: Patient presents with: Recheck: GERD HPI Peyman Blandon is a 78 year old female here today for Recheck (GERD ) Patient tells me that she is having good and bad days. Notes that the Omeprazole 40 mg and Carafate BID. Unsure if the Carafate is working. Notes some voice hoarseness. No dysphagia. Still taking a lot of antacids. Last OV with me 09/22/2023: Assessment/Plan (K21.9) Gastroesophageal reflux disease without esophagitis (primary encounter diagnosis) (R06.6) Hiccup 1. Gastroesophageal reflux disease without esophagitis -- Patient with ongoing GERD symptoms and hiccups. -- Will refill her Omeprazole 40 mg daily. Start Carafate 1 g BID to help with bile digestion. -- Discussed esophagram, she would like to hold off - sucralfate (CARAFATE) 1 gram tablet; Take 1 tablet by mouth two times a day. If trouble swallowing, can dissolve pill in 1 tablespoon of liquid Dispense: 60 tablet; Refill: 2 - omeprazole (PRILOSEC) 40 mg capsule; Take 1 capsule by mouth once daily. Dispense: 90 capsule; Refill: 2 2. Hiccup -- Patient with ongoing GERD symptoms and hiccups. -- Will refill her Omeprazole 40 mg daily. Start Carafate 1 g BID to help with bile digestion. -- Discussed esophagram, she would like to hold off - sucralfate (CARAFATE) 1 gram tablet; Take 1 tablet by mouth two times a day. If trouble swallowing, can dissolve pill in 1 tablespoon of liquid Dispense: 60 tablet; Refill: 2 - omeprazole (PRILOSEC) 40 mg capsule; Take 1 capsule by mouth once daily. Dispense: 90 capsule; Refill: 2 Follow up in office 3 months/PRN. Current Outpatient Medications Medication Sig sucralfate (CARAFATE) 1 gram tablet TAKE 1 TABLET BY MOUTH TWO TIMES A DAY. IF TROUBLE SWALLOWING CAN DISSOLVE IN 1 TABLESPOON OF LIQUID omeprazole (PRILOSEC) 40 mg capsule Take 1 capsule by mouth once daily. chlorthalidone (HYGROTON) 25 mg tablet take 1 tablet by mouth every day propranolol (INDERAL) 80 mg tablet Take 1 tablet by mouth twice daily. cetirizine (ZYRTEC) 10 mg tablet TAKE 1 TABLET BY MOUTH EVERY DAY Cholecalciferol, Vitamin D3, 5,000 unit cap Take 1 capsule by mouth once daily. calcium carbonate (CALTRATE) 600 mg calcium (1,500 mg) tab 600 mg once daily. No current facility-administered medications for this visit. Facility-Administered Medications Ordered in Other Visits Medication Dose Route Frequency lidocaine (PF) 10 mg/mL (1 %) 1-2 mg injection (XYLOCAINE) 0.1-0.2 mL INTRADERMAL PRN lactated ringers iv infusion 30 mL/hr INTRAVENOUS CONTINUOUS ALLERGIES Allergen Reactions Acetaminophen Other: See Comments Morphine Other: See Comments Gets really sick Niacin Other: See Comments extreme flushing Nzarest-Qyy-Tpw Red* Intolerance Social History Tobacco Use Smoking status: Never Smokeless tobacco: Never Vaping Use Vaping Use: Never used Substance Use Topics Alcohol use: Not Currently Comment: Rarely Drug use: Never PAST MEDICAL HISTORY Diagnosis Date Collagenous colitis Essential hypertension GERD (gastroesophageal reflux disease) Hiatal hernia Hx of colonic polyps Hyperparathyroidism Non-cardiac chest pain Other forms of migraine Parathyroid adenoma Schatzki's ring Senile osteoporosis PAST SURGICAL HISTORY Procedure Laterality Date COLONOSCOPY 12/31/2006 collagenous colitis EGD 09/06/2008 Slightly patulous GE junctoin, neg H Pylori EGD 08/25/2018 EGD 04/02/2023 mild chronic inflammation of the stomach PARATHYROIDECTOMY/EXPLORATION PARATHYROIDS 2002 Removal parathyroid gland FAMILY HISTORY Problem Relation Age of Onset Diabetes Mother Cancer Father Lung Cancer other (Leukemia) Sister Colon Cancer No Family History REVIEW OF SYSTEMS Review of Systems Gastrointestinal: Heartburn All other systems reviewed and are negative. PHYSICAL EXAM BP 156/74 Pulse 60 Ht 5' 4 (1.63m) Wt 161 lb 12.8 oz (73.4kg) BMI 27.76 kg/(m2). Physical Exam Constitutional: Appearance: Normal appearance. HENT: Head: Normocephalic and atraumatic. Eyes: General: No scleral icterus. Extraocular Movements: Extraocular movements intact. Conjunctiva/sclera: Conjunctivae normal. Pupils: Pupils are equal, round, and reactive to light. Cardiovascular: Rate and Rhythm: Normal rate and regular rhythm. Pulses: Normal pulses. Heart sounds: Normal heart sounds. Pulmonary: Effort: Pulmonary effort is normal. Breath sounds: Normal breath sounds. Abdominal: General: Abdomen is flat. Bowel sounds are normal. Palpations: Abdomen is soft. Tenderness: There is no abdominal tenderness. Musculoskeletal: General: Normal range of motion. Cervical back: Normal range of motion and neck supple. Skin: General: Skin is warm and dry. Coloration: Skin is (more content not included)... [facility] 12-22-2023 History of Presen t illness Narrative CHIEF COMPLAINT: Patient presents with: Recheck: GERD HPI Peyman Blandon is a 78 year old female here today for Recheck (GERD ) Patient tells me that she is having good and bad days. Notes that the Omeprazole 40 mg and Carafate BID. Unsure if the Carafate is working. Notes some voice hoarseness. No dysphagia. Still taking a lot of antacids. Last OV with me 09/22/2023: Assessment/Plan (K21.9) Gastroesophageal reflux disease without esophagitis (primary encounter diagnosis) (R06.6) Hiccup 1. Gastroesophageal reflux disease without esophagitis -- Patient with ongoing GERD symptoms and hiccups. -- Will refill her Omeprazole 40 mg daily. Start Carafate 1 g BID to help with bile digestion. -- Discussed esophagram, she would like to hold off - sucralfate (CARAFATE) 1 gram tablet; Take 1 tablet by mouth two times a day. If trouble swallowing, can dissolve pill in 1 tablespoon of liquid Dispense: 60 tablet; Refill: 2 - omeprazole (PRILOSEC) 40 mg capsule; Take 1 capsule by mouth once daily. Dispense: 90 capsule; Refill: 2 2. Hiccup -- Patient with ongoing GERD symptoms and hiccups. -- Will refill her Omeprazole 40 mg daily. Start Carafate 1 g BID to help with bile digestion. -- Discussed esophagram, she would like to hold off - sucralfate (CARAFATE) 1 gram tablet; Take 1 tablet by mouth two times a day. If trouble swallowing, can dissolve pill in 1 tablespoon of liquid Dispense: 60 tablet; Refill: 2 - omeprazole (PRILOSEC) 40 mg capsule; Take 1 capsule by mouth once daily. Dispense: 90 capsule; Refill: 2 Follow up in office 3 months/PRN. Current Outpatient Medications Medication Sig sucralfate (CARAFATE) 1 gram tablet TAKE 1 TABLET BY MOUTH TWO TIMES A DAY. IF TROUBLE SWALLOWING CAN DISSOLVE IN 1 TABLESPOON OF LIQUID omeprazole (PRILOSEC) 40 mg capsule Take 1 capsule by mouth once daily. chlorthalidone (HYGROTON) 25 mg tablet take 1 tablet by mouth every day propranolol (INDERAL) 80 mg tablet Take 1 tablet by mouth twice daily. cetirizine (ZYRTEC) 10 mg tablet TAKE 1 TABLET BY MOUTH EVERY DAY Cholecalciferol, Vitamin D3, 5,000 unit cap Take 1 capsule by mouth once daily. calcium carbonate (CALTRATE) 600 mg calcium (1,500 mg) tab 600 mg once daily. No current facility-administered medications for this visit. Facility-Administered Medications Ordered in Other Visits Medication Dose Route Frequency lidocaine (PF) 10 mg/mL (1 %) 1-2 mg injection (XYLOCAINE) 0.1-0.2 mL INTRADERMAL PRN lactated ringers iv infusion 30 mL/hr INTRAVENOUS CONTINUOUS ALLERGIES Allergen Reactions Acetaminophen Other: See Comments Morphine Other: See Comments Gets really sick Niacin Other: See Comments extreme flushing Ustlzvy-Lcc-Ist Red* Intolerance Social History Tobacco Use Smoking status: Never Smokeless tobacco: Never Vaping Use Vaping Use: Never used Substance Use Topics Alcohol use: Not Currently Comment: Rarely Drug use: Never PAST MEDICAL HISTORY Diagnosis Date Collagenous colitis Essential hypertension GERD (gastroesophageal reflux disease) Hiatal hernia Hx of colonic polyps Hyperparathyroidism Non-cardiac chest pain Other forms of migraine Parathyroid adenoma Schatzki's ring Senile osteoporosis PAST SURGICAL HISTORY Procedure Laterality Date COLONOSCOPY 12/31/2006 collagenous colitis EGD 09/06/2008 Slightly patulous GE junctoin, neg H Pylori EGD 08/25/2018 EGD 04/02/2023 mild chronic inflammation of the stomach PARATHYROIDECTOMY/EXPLORATION PARATHYROIDS 2002 Removal parathyroid gland FAMILY HISTORY Problem Relation Age of Onset Diabetes Mother Cancer Father Lung Cancer other (Leukemia) Sister Colon Cancer No Family History REVIEW OF SYSTEMS Review of Systems Gastrointestinal: Heartburn All other systems reviewed and are negative. PHYSICAL EXAM BP 156/74 Pulse 60 Ht 5' 4 (1.63m) Wt 161 lb 12.8 oz (73.4kg) BMI 27.76 kg/(m^2). Physical Exam Constitutional: Appearance: Normal appearance. HENT: Head: Normocephalic and atraumatic. Eyes: General: No scleral icterus. Extraocular Movements: Extraocular movements intact. Conjunctiva/sclera: Conjunctivae normal. Pupils: Pupils are equal, round, and reactive to light. Cardiovascular: Rate and Rhythm: Normal rate and regular rhythm. Pulses: Normal pulses. Heart sounds: Normal heart sounds. Pulmonary: Effort: Pulmonary effort is normal. Breath sounds: Normal breath sounds. Abdominal: General: Abdomen is flat. Bowel sounds are normal. Palpations: Abdomen is soft. Tenderness: There is no abdominal tenderness. Musculoskeletal: General: Normal range of motion. Cervical back: Normal range of motion and neck supple. Skin: General: Skin is warm and dry. Coloration: Skin is not jaundiced. Neurological: General: No focal deficit present. Mental Status: She is alert and oriented to person, place, and time. Psychiatric: Mood and Affect: Mood normal. Behavior: Behavior normal. Thought Content: Thought content normal. Judgment: Judgment normal. Assessment/Plan (K21.9) Gastroesophageal reflux disease without esophagitis (primary encounter diagnosis) (R49.0) Voice hoarseness 1. Gastroesophageal reflux disease without esophagitis -- Patient with ongoing GERD symptoms and worsening voice hoarseness. -- Discussed options today. She would like to hold off on Esophagram -- Will increase Omeprazole to 40 mg to BID for now - omeprazole (PRILOSEC) 40 mg capsule; Take 1 capsule by mouth two times a day. Dispense: 120 capsule; Refill: 2 2. Voice hoarseness -- Patient with ongoing GERD symptoms and worsening voice hoarseness. -- Discussed options today. She would like to hold off on Esophagram -- Will increase Omeprazole to 40 mg to BID for now - omeprazole (PRILOSEC) 40 mg capsule; Take 1 capsule by mouth two times a day. Dispense: 120 capsule; Refill: 2 Follow up in office 6 months/PRN. Recommended to please call office/go to ER if fever, chills, chest pain, SOB, diarrhea, nausea, emesis, worsening abdominal pain, dehydration occurs I spent a total of 20 minutes on the date of the service which included preparing to see the patient, [id number] patient care, completing clinical documentation, obtaining and/or reviewing separately obtained history, performing a medically appropriate examination, counseling and educating the patient/family/caregiver, and ordering medications, tests, or procedures. Maria Victoria Middleton PA-C December 22, 2023 10:59 AM documented in this encounter [facility] 10-16-2023 Miscellaneous Notes Patient phones requesting 90 day supply as follows: Requested Prescriptions Pending Prescriptions Disp Refills sucralfate (CARAFATE) 1 gram tablet [Pharmacy Med Name: SUCRALFATE 1 GM TABLET] 180 tablet 1 Sig: TAKE 1 TABLET BY MOUTH TWO TIMES A DAY. IF TROUBLE SWALLOWING CAN DISSOLVE IN 1 TABLESPOON OF LIQUID Please review and advise. Janiya Edmondson Ma documented in this encounter [facility] 09-22-2023 Note HNO ID: [id number] Author: Maria Victoria Middleton PA-C Service: ? Author Type: Physician Medication Care Manager Type: Progress Notes Filed: 09/22/2023 11:26 AM Note Text: CHIEF COMPLAINT: Patient presents with: Recheck: GERD-hiccups and heartburn HPI Peyman Blandon is a 78 year old female here today for Recheck (GERD-hiccups and heartburn ) Patient tells me that she is feeling better. Notes that she is getting intermittent GERD symptoms and hiccups. Can be worse in the evening time. Unsure of triggers to her symptoms. No dysphagia, nausea, vomiting, abdominal pain. Last OV with me 01/13/2023: Assessment/Plan (K21.9) Gastroesophageal reflux disease without esophagitis (primary encounter diagnosis) 1. Gastroesophageal reflux disease without esophagitis -- Patient with ongoing GERD symptoms. Current on Omeprazole 20 mg daily. Stopped the second dose as it was causing hiccups. -- Continue on Omeprazole 20 mg. Okay to use Pepcid PRN -- Plan for EGD for further evaluation - EGD DIAGNOSTIC; Future Follow up in office PRN. Current Outpatient Medications Medication Sig chlorthalidone (HYGROTON) 25 mg tablet take 1 tablet by mouth every day propranolol (INDERAL) 80 mg tablet Take 1 tablet by mouth twice daily. omeprazole (PRILOSEC) 20 mg capsule Take 1 capsule by mouth twice daily. cetirizine (ZYRTEC) 10 mg tablet TAKE 1 TABLET BY MOUTH EVERY DAY Cholecalciferol, Vitamin D3, 5,000 unit cap Take 1 capsule by mouth once daily. calcium carbonate (CALTRATE) 600 mg calcium (1,500 mg) tab 600 mg once daily. No current facility-administered medications for this visit. Facility-Administered Medications Ordered in Other Visits Medication Dose Route Frequency lidocaine (PF) 10 mg/mL (1 %) 1-2 mg injection (XYLOCAINE) 0.1-0.2 mL INTRADERMAL PRN lactated ringers iv infusion 30 mL/hr INTRAVENOUS CONTINUOUS ALLERGIES Allergen Reactions Acetaminophen Other: See Comments Morphine Other: See Comments Gets really sick Niacin Other: See Comments extreme flushing Kxiihxu-Vvo-Ibs Red* Intolerance Social History Tobacco Use Smoking status: Never Smokeless tobacco: Never Vaping Use Vaping Use: Never used Substance Use Topics Alcohol use: Not Currently Comment: Rarely Drug use: Never PAST MEDICAL HISTORY Diagnosis Date Collagenous colitis Essential hypertension GERD (gastroesophageal reflux disease) Hiatal hernia Hx of colonic polyps Hyperparathyroidism Non-cardiac chest pain Other forms of migraine Parathyroid adenoma Schatzki's ring Senile osteoporosis PAST SURGICAL HISTORY Procedure Laterality Date COLONOSCOPY 12/31/2006 collagenous colitis EGD 09/06/2008 Slightly patulous GE junctoin, neg H Pylori EGD 08/25/2018 EGD 04/02/2023 mild chronic inflammation of the stomach PARATHYROIDECTOMY/EXPLORATION PARATHYROIDS 2002 Removal parathyroid gland FAMILY HISTORY Problem Relation Age of Onset Diabetes Mother Cancer Father Lung Cancer other (Leukemia) Sister Colon Cancer No Family History REVIEW OF SYSTEMS Review of Systems Gastrointestinal: Heartburn All other systems reviewed and are negative. PHYSICAL EXAM BP 162/82 Pulse 62 Ht 5' 4 (1.63m) Wt 156 lb (70.8kg) BMI 26.76 kg/(m2). Physical Exam Constitutional: Appearance: Normal appearance. She is normal weight. HENT: Head: Normocephalic and atraumatic. Eyes: General: No scleral icterus. Extraocular Movements: Extraocular movements intact. Conjunctiva/sclera: Conjunctivae normal. Pupils: Pupils are equal, round, and reactive to light. Cardiovascular: Rate and Rhythm: Normal rate and regular rhythm. Pulses: Normal pulses. Heart sounds: Normal heart sounds. Pulmonary: Effort: Pulmonary effort is normal. Breath sounds: Normal breath sounds. Abdominal: General: Abdomen is flat. Bowel sounds are normal. Palpations: Abdomen is soft. Tenderness: There is no abdominal tenderness. Musculoskeletal: General: Normal range of motion. Cervical back: Normal range of motion and neck supple. Skin: General: Skin is warm and dry. Coloration: Skin is not jaundiced. Neurological: General: No focal deficit present. Mental Status: She is alert and oriented to person, place, and time. Psychiatric: Mood and Affect: Mood normal. Behavior: Behavior normal. Thought Content: Thought content normal. Judgment: Judgment normal. Assessment/Plan (K21.9) Gastroesophageal reflux disease without esophagitis (primary encounter diagnosis) (R06.6) Hiccup 1. Gastroesophageal reflux disease without esophagitis -- Patient with ongoing GERD symptoms and hiccups. -- Will refill her Omeprazole 40 mg daily. Start Carafate 1 g BID to help with bile digestion. -- Discussed esophagram, she would like to hold off - sucralfate (CARAFATE) 1 gram tablet; Take 1 tablet by mouth two times a day. If trouble swallowing, can dissolve pill in 1 tablespoon of liquid Dispense: 60 (more content not included)... [facility] 09-22-2023 Instructions Maria Victoria Middleton PA-C - 09/22/2023 11:09 AM EST -- Consider Esophagram for further evaluation of symptoms -- Recommend taking the Carafate 1 g twice daily, once with largest meal and at bedtime documented in this encounter [facility] 09-22-2023 History of Presen t illness Narrative CHIEF COMPLAINT: Patient presents with: Recheck: GERD-hiccups and heartburn HPI Peyman Blandon is a 78 year old female here today for Recheck (GERD-hiccups and heartburn ) Patient tells me that she is feeling better. Notes that she is getting intermittent GERD symptoms and hiccups. Can be worse in the evening time. Unsure of triggers to her symptoms. No dysphagia, nausea, vomiting, abdominal pain. Last OV with me 01/13/2023: Assessment/Plan (K21.9) Gastroesophageal reflux disease without esophagitis (primary encounter diagnosis) 1. Gastroesophageal reflux disease without esophagitis -- Patient with ongoing GERD symptoms. Current on Omeprazole 20 mg daily. Stopped the second dose as it was causing hiccups. -- Continue on Omeprazole 20 mg. Okay to use Pepcid PRN -- Plan for EGD for further evaluation - EGD DIAGNOSTIC; Future Follow up in office PRN. Current Outpatient Medications Medication Sig chlorthalidone (HYGROTON) 25 mg tablet take 1 tablet by mouth every day propranolol (INDERAL) 80 mg tablet Take 1 tablet by mouth twice daily. omeprazole (PRILOSEC) 20 mg capsule Take 1 capsule by mouth twice daily. cetirizine (ZYRTEC) 10 mg tablet TAKE 1 TABLET BY MOUTH EVERY DAY Cholecalciferol, Vitamin D3, 5,000 unit cap Take 1 capsule by mouth once daily. calcium carbonate (CALTRATE) 600 mg calcium (1,500 mg) tab 600 mg once daily. No current facility-administered medications for this visit. Facility-Administered Medications Ordered in Other Visits Medication Dose Route Frequency lidocaine (PF) 10 mg/mL (1 %) 1-2 mg injection (XYLOCAINE) 0.1-0.2 mL INTRADERMAL PRN lactated ringers iv infusion 30 mL/hr INTRAVENOUS CONTINUOUS ALLERGIES Allergen Reactions Acetaminophen Other: See Comments Morphine Other: See Comments Gets really sick Niacin Other: See Comments extreme flushing Qdslkhk-Rea-Oub Red* Intolerance Social History Tobacco Use Smoking status: Never Smokeless tobacco: Never Vaping Use Vaping Use: Never used Substance Use Topics Alcohol use: Not Currently Comment: Rarely Drug use: Never PAST MEDICAL HISTORY Diagnosis Date Collagenous colitis Essential hypertension GERD (gastroesophageal reflux disease) Hiatal hernia Hx of colonic polyps Hyperparathyroidism Non-cardiac chest pain Other forms of migraine Parathyroid adenoma Schatzki's ring Senile osteoporosis PAST SURGICAL HISTORY Procedure Laterality Date COLONOSCOPY 12/31/2006 collagenous colitis EGD 09/06/2008 Slightly patulous GE junctoin, neg H Pylori EGD 08/25/2018 EGD 04/02/2023 mild chronic inflammation of the stomach PARATHYROIDECTOMY/EXPLORATION PARATHYROIDS 2002 Removal parathyroid gland FAMILY HISTORY Problem Relation Age of Onset Diabetes Mother Cancer Father Lung Cancer other (Leukemia) Sister Colon Cancer No Family History REVIEW OF SYSTEMS Review of Systems Gastrointestinal: Heartburn All other systems reviewed and are negative. PHYSICAL EXAM BP 162/82 Pulse 62 Ht 5' 4 (1.63m) Wt 156 lb (70.8kg) BMI 26.76 kg/(m^2). Physical Exam Constitutional: Appearance: Normal appearance. She is normal weight. HENT: Head: Normocephalic and atraumatic. Eyes: General: No scleral icterus. Extraocular Movements: Extraocular movements intact. Conjunctiva/sclera: Conjunctivae normal. Pupils: Pupils are equal, round, and reactive to light. Cardiovascular: Rate and Rhythm: Normal rate and regular rhythm. Pulses: Normal pulses. Heart sounds: Normal heart sounds. Pulmonary: Effort: Pulmonary effort is normal. Breath sounds: Normal breath sounds. Abdominal: General: Abdomen is flat. Bowel sounds are normal. Palpations: Abdomen is soft. Tenderness: There is no abdominal tenderness. Musculoskeletal: General: Normal range of motion. Cervical back: Normal range of motion and neck supple. Skin: General: Skin is warm and dry. Coloration: Skin is not jaundiced. Neurological: General: No focal deficit present. Mental Status: She is alert and oriented to person, place, and time. Psychiatric: Mood and Affect: Mood normal. Behavior: Behavior normal. Thought Content: Thought content normal. Judgment: Judgment normal. Assessment/Plan (K21.9) Gastroesophageal reflux disease without esophagitis (primary encounter diagnosis) (R06.6) Hiccup 1. Gastroesophageal reflux disease without esophagitis -- Patient with ongoing GERD symptoms and hiccups. -- Will refill her Omeprazole 40 mg daily. Start Carafate 1 g BID to help with bile digestion. -- Discussed esophagram, she would like to hold off - sucralfate (CARAFATE) 1 gram tablet; Take 1 tablet by mouth two times a day. If trouble swallowing, can dissolve pill in 1 tablespoon of liquid Dispense: 60 tablet; Refill: 2 - omeprazole (PRILOSEC) 40 mg capsule; Take 1 capsule by mouth once daily. Dispense: 90 capsule; Refill: 2 2. Hiccup -- Patient with ongoing GERD symptoms and hiccups. -- Will refill her Omeprazole 40 mg daily. Start Carafate 1 g BID to help with bile digestion. -- Discussed esophagram, she would like to hold off - sucralfate (CARAFATE) 1 gram tablet; Take 1 tablet by mouth two times a day. If trouble swallowing, can dissolve pill in 1 tablespoon of liquid Dispense: 60 tablet; Refill: 2 - omeprazole (PRILOSEC) 40 mg capsule; Take 1 capsule by mouth once daily. Dispense: 90 capsule; Refill: 2 Follow up in office 3 months/PRN. Recommended to please call office/go to ER if fever, chills, chest pain, SOB, diarrhea, nausea, emesis, worsening abdominal pain, dehydration occurs I spent a total of 20 minutes on the date of the service which included preparing to see the patient, [id number] patient care, completing clinical documentation, obtaining and/or reviewing separately obtained history, performing a medically appropriate examination, counseling and educating the patient/family/caregiver, ordering medications, tests, or procedures, and communicating results to the patient/family/caregiver. Maria Victoria Middleton PA-C September 22, 2023 11:11 AM documented in this encounter [facility] 09-12-2023 Miscellaneous Notes Called pt , she voiced understanding of her results below. Patient called back. Please call her on her home number (which is also her business number). [phone]. Images from the original note were not included. Samantha Llanos APRN.[facility] Your stool blood test was negative (normal). This means no blood was seen in the stool. I recommend repeating colorectal cancer screening in one year. Samantha Llanos APRN.[facility]USS Attempted to reach patient [phone]. This is a business phone number. Patient was not available. Attempted to reach patient at [phone]. Left message on voicemail for patient to return call for message from provider. documented in this encounter [facility] 09-08-2023 Miscellaneous Notes Pharmacy verified in [employer]. Patient has been identified by name and date of : Yes Patient aware RX will be sent to pharmacy. No need to notify patient. Patient phones for refill(s): Requested Prescriptions Pending Prescriptions Disp Refills chlorthalidone (HYGROTON) 25 mg tablet [Pharmacy Med Name: CHLORTHALIDONE 25 MG TABLET] 90 tablet 1 Sig: take 1 tablet by mouth every day Date of last office visit : 08/20/2023 Date of next office visit : 02/18/2024 Last 2 Encounter Wt Readings: Date: Wt: 08/20/2023 70.3 kg (155 lb) 06/17/2023 70.8 kg (156 lb) Not applicable Please advise. Kathie Melendez MA documented in this encounter [facility] 08-20-2023 Note HNO ID: [id number] Author: Silverio Gale MD Service: ? Author Type: Physician Type: Progress Notes Filed: 08/20/2023 2:18 PM Note Text: CHIEF COMPLAINT Patient presents with: 6 Month Exam HISTORY OF PRESENT ILLNESS Peyman Blandon is a 77 year old female who presents here today for 6 month follow up. I last saw this patient on 02/19/2023. - Retired - Tuesdays she works with the [employer] at the [employer] - Planning a trip to [place] with her family. Hypertension - Currently managed on propranolol 80 mg tablet BID and Chlorthalidone 25 mg tablet once daily - Blood pressure elevated upon arrival to office at 156/79, significantly improved on repeat. - Home readings tend to fluctuate between high 110's and 140. - States that her daughter tells her she needs to exercise more GERD - Managed on Prilosec 20 mg capsule, recently increased to twice daily - Had an EGD on 04/02/2023 - Follows with gastroenterology Health Maintenance Due for Hep C Screening Due for BP Controlled (<130/80) Due for Dtap, Tdap, Td Vaccine Due for Fecal Occult Blood Due for Advanced Directive Discussion Labs reviewed. Past medical history, appointments, medications, allergies reviewed. REVIEW OF SYSTEMS General: Feels well, no weight changes, fevers or chills. HEENT: No sinus congestion, earache, sore throat. Cardiac: No chest pain, palpitations Resp: No cough, wheeze, shortness of breath GI: +reflux symptoms, no food intolerance or bowel changes. : No urinary frequency, dysuria. MS: No pain or joint complaints. PAST MEDICAL HISTORY PAST MEDICAL HISTORY Diagnosis Date Collagenous colitis Essential hypertension GERD (gastroesophageal reflux disease) Hiatal hernia Hx of colonic polyps Hyperparathyroidism Non-cardiac chest pain Other forms of migraine Parathyroid adenoma Schatzki's ring Senile osteoporosis PHYSICAL EXAMINATION BP 156/79 Pulse (!) 50 Ht 162.6 cm (5' 4 ) Wt 70.3 kg (155 lb) SpO2 99% BMI 26.61 kg/m? Repeat BP: 130/78 General: Alert, well developed, well nourished, no distress, pleasant and cooperative. Heart: Regular rate and rhythm. Normal S1 and S2. No murmurs, rubs, or gallops. Lungs: Clear to auscultation bilaterally. No respiratory distress. No wheezes, rales, or rhonchi. Abdomen: Soft, non-tender, no distention. Extremities: Feet/ankles without edema, posterior tibial pulses full and symmetrical. Data Reviewed Component Latest Ref Rng AND Units 09/06/2020 11/17/2020 Protein, Total 6.3 - 8.0 g/dL 7.1 Albumin 3.9 - 4.9 g/dL 4.1 Calcium 8.5 - 10.2 mg/dL 9.3 Bilirubin, Total 0.2 - 1.3 mg/dL 0.4 Alkaline Phosphatase 34 - 123 U/L 110 AST 13 - 35 U/L 16 Glucose 74 - 99 mg/dL 108 (H) BUN 7 - 21 mg/dL 15 Creatinine 0.58 - 0.96 mg/dL 0.96 Sodium 136 - 144 mmol/L 140 Potassium 3.7 - 5.1 mmol/L 4.1 Chloride 97 - 105 mmol/L 102 CO2 22 - 30 mmol/L 31 (H) Anion Gap 9 - 18 mmol/L 7 (L) ALT 7 - 38 U/L 11 eGFR- >60 eGFR-All Other Races . 57 WBC 3.70 - 11.00 k/uL 5.81 RBC 3.90 - 5.20 m/uL 4.37 Hemoglobin 11.5 - 15.5 g/dL 13.0 Hematocrit 36.0 - 46.0 % 39.6 MCV 80.0 - 100.0 fL 90.6 MCH 26.0 - 34.0 pG 29.7 MCHC 30.5 - 36.0 g/dL 32.8 RDW-CV 11.5 - 15.0 % 12.5 Platelet Count 150 - 400 k/uL 289 MPV 9.0 - 12.7 fL 11.0 Absolute nRBC <0.01 k/uL <0.01 Cholesterol, Total <200 mg/dL 232 (H) Triglyceride <150 mg/dL 102 HDL Cholesterol >39 mg/dL 61 LDL Cholesterol <100 mg/dL 151 (H) Non HDL Cholesterol <130 mg/dL 171 (H) Fasting Time hrs 12 VLDL Cholesterol <30 mg/dL 20 TC:HDL Ratio <5.10 3.80 LDL:HDL Ratio <2.54 2.48 Vitamin D 25 Hydroxy 31.0 - 80.0 ng/mL 78.3 Occult Blood, Stool Negative Negative 04/02/2023 EGD Diagnostic Impression: - Z-line irregular, 36 cm from the incisors. - Patulous lower esophageal sphincter. - LA Grade B reflux esophagitis with no bleeding. - Bilious gastric fluid. - Normal antrum. Biopsied. - Normal duodenal bulb and second portion of the duodenum. Assessment/Plan (Z23) Encounter for immunization (primary encounter diagnosis) Comment: Per health maintenance Plan: INFLUENZA VACCINE, PRSV FREE, AGE 65+ YR, HIGH DOSE, QUADRIVALENT (FLUZONE HIGH-DOSE), [employer] COVID-19 VACCINE (2022- SEASON) AGE 12+ YR (I10) Essential hypertension Comment: Fairly controlled. Home readings tend to fluctuate however she is mostly within normal range. Plan: Continue current regimen (K21.9) Gastroesophageal reflux disease without esophagitis Comment: Managed on Prilosec, increased to twice daily. Had EGD on 04/02/2023 Plan: Continue current regimen Continue to follow with GI (Z78.9) Statin intolerance Comment: Cholesterol well controlled Plan: Continue to monitor (R73.9) Hyperglycemia Comment: Minimally Plan: Continue to monitor (Z12.11) Encounter for screening fecal occult blood testing Comment: Per health maintenance Plan: FECAL OCCULT BL (more content not included)... [facility] 08-20-2023 History of Presen t illness Narrative CHIEF COMPLAINT Patient presents with: 6 Month Exam HISTORY OF PRESENT ILLNESS Peyman Blandon is a 77 year old female who presents here today for 6 month follow up. I last saw this patient on 02/19/2023. - Retired - Tuesdays she works with the syn[employer] at the [employer] - Planning a trip to [place] with her family. Hypertension - Currently managed on propranolol 80 mg tablet BID and Chlorthalidone 25 mg tablet once daily - Blood pressure elevated upon arrival to office at 156/79, significantly improved on repeat. - Home readings tend to fluctuate between high 110's and 140. - States that her daughter tells her she needs to exercise more GERD - Managed on Prilosec 20 mg capsule, recently increased to twice daily - Had an EGD on 04/02/2023 - Follows with gastroenterology Health Maintenance Due for Hep C Screening Due for BP Controlled (<130/80) Due for Dtap, Tdap, Td Vaccine Due for Fecal Occult Blood Due for Advanced Directive Discussion Labs reviewed. Past medical history, appointments, medications, allergies reviewed. REVIEW OF SYSTEMS General: Feels well, no weight changes, fevers or chills. HEENT: No sinus congestion, earache, sore throat. Cardiac: No chest pain, palpitations Resp: No cough, wheeze, shortness of breath GI: +reflux symptoms, no food intolerance or bowel changes. : No urinary frequency, dysuria. MS: No pain or joint complaints. PAST MEDICAL HISTORY PAST MEDICAL HISTORY Diagnosis Date Collagenous colitis Essential hypertension GERD (gastroesophageal reflux disease) Hiatal hernia Hx of colonic polyps Hyperparathyroidism Non-cardiac chest pain Other forms of migraine Parathyroid adenoma Schatzki's ring Senile osteoporosis PHYSICAL EXAMINATION BP 156/79 Pulse (!) 50 Ht 162.6 cm (5' 4 ) Wt 70.3 kg (155 lb) SpO2 99% BMI 26.61 kg/m Repeat BP: 130/78 General: Alert, well developed, well nourished, no distress, pleasant and cooperative. Heart: Regular rate and rhythm. Normal S1 and S2. No murmurs, rubs, or gallops. Lungs: Clear to auscultation bilaterally. No respiratory distress. No wheezes, rales, or rhonchi. Abdomen: Soft, non-tender, no distention. Extremities: Feet/ankles without edema, posterior tibial pulses full and symmetrical. Data Reviewed Component Latest Ref Rng & Units 09/06/2020 11/17/2020 Protein, Total 6.3 - 8.0 g/dL 7.1 Albumin 3.9 - 4.9 g/dL 4.1 Calcium 8.5 - 10.2 mg/dL 9.3 Bilirubin, Total 0.2 - 1.3 mg/dL 0.4 Alkaline Phosphatase 34 - 123 U/L 110 AST 13 - 35 U/L 16 Glucose 74 - 99 mg/dL 108 (H) BUN 7 - 21 mg/dL 15 Creatinine 0.58 - 0.96 mg/dL 0.96 Sodium 136 - 144 mmol/L 140 Potassium 3.7 - 5.1 mmol/L 4.1 Chloride 97 - 105 mmol/L 102 CO2 22 - 30 mmol/L 31 (H) Anion Gap 9 - 18 mmol/L 7 (L) ALT 7 - 38 U/L 11 eGFR- >60 eGFR-All Other Races . 57 WBC 3.70 - 11.00 k/uL 5.81 RBC 3.90 - 5.20 m/uL 4.37 Hemoglobin 11.5 - 15.5 g/dL 13.0 Hematocrit 36.0 - 46.0 % 39.6 MCV 80.0 - 100.0 fL 90.6 MCH 26.0 - 34.0 pG 29.7 MCHC 30.5 - 36.0 g/dL 32.8 RDW-CV 11.5 - 15.0 % 12.5 Platelet Count 150 - 400 k/uL 289 MPV 9.0 - 12.7 fL 11.0 Absolute nRBC <0.01 k/uL <0.01 Cholesterol, Total <200 mg/dL 232 (H) Triglyceride <150 mg/dL 102 HDL Cholesterol >39 mg/dL 61 LDL Cholesterol <100 mg/dL 151 (H) Non HDL Cholesterol <130 mg/dL 171 (H) Fasting Time hrs 12 VLDL Cholesterol <30 mg/dL 20 TC:HDL Ratio <5.10 3.80 LDL:HDL Ratio <2.54 2.48 Vitamin D 25 Hydroxy 31.0 - 80.0 ng/mL 78.3 Occult Blood, Stool Negative Negative 04/02/2023 EGD Diagnostic Impression: - Z-line irregular, 36 cm from the incisors. - Patulous lower esophageal sphincter. - LA Grade B reflux esophagitis with no bleeding. - Bilious gastric fluid. - Normal antrum. Biopsied. - Normal duodenal bulb and second portion of the duodenum. Assessment/Plan (Z23) Encounter for immunization (primary encounter diagnosis) Comment: Per health maintenance Plan: INFLUENZA VACCINE, PRSV FREE, AGE 65+ YR, HIGH DOSE, QUADRIVALENT (FLUZONE HIGH-DOSE), [facility] COVID-19 VACCINE (2022- [place]) AGE 12+ YR (I10) Essential hypertension Comment: Fairly controlled. Home readings tend to fluctuate however she is mostly within normal range. Plan: Continue current regimen (K21.9) Gastroesophageal reflux disease without esophagitis Comment: Managed on Prilosec, increased to twice daily. Had EGD on 04/02/2023 Plan: Continue current regimen Continue to follow with GI (Z78.9) Statin intolerance Comment: Cholesterol well controlled Plan: Continue to monitor (R73.9) Hyperglycemia Comment: Minimally Plan: Continue to monitor (Z12.11) Encounter for screening fecal occult blood testing Comment: Per health maintenance Plan: FECAL OCCULT BLOOD TEST Requested Prescriptions No prescriptions requested or ordered in this encounter RTO: 6 months Scribe Attestation: By signing my name below, ICory, attest that this documentation has been prepared under the direction and in the presence of Richard Gale M.D. Electronically Signed: Avni Garza. August 20, 2023 11:04 AM Provider Attestation: ISilverio MD, personally performed the services described in this documentation. All medical record entries made by the scribe were at my direction and in my presence. I have reviewed the chart and discharge instructions (if applicable), and agree that the record reflects my personal performance and is accurate and complete. Electronically Signed: Silverio Gale MD August 20, 2023 2:17 PM documented in this encounter [facility] 06-17-2023 Note HNO ID: [id number] Author: Richard Ovalle APRN.TUBE RE[employer] Service: ? Author Type: Nurse Practitioner Type: Progress Notes Filed: 06/17/2023 3:53 PM Note Text: Subjective HPI Nontoxic-appearing female presents urgent care chief plaint rash. Duration of symptom 1 week. Associated symptoms erythematous pruritic rash. States prior to rash starting she was weed eating when she noticed the rash the next day. Has not used any OTC medications. History of poison sheldon this feels similar. No recent medication changes antibiotic use. Overall feels well. Denies any fever body aches chills productive cough chest pain shortness of breath pleuritic pain hemoptysis nausea vomiting abdominal pain change in bowel or bladder habits. Past medical history prescription medication use and allergies reviewed. .Patient presents with: Rash: Pt reported rash located neck, fingers, face x1 wk. PAST MEDICAL HISTORY Diagnosis Date Collagenous colitis Essential hypertension GERD (gastroesophageal reflux disease) Hiatal hernia Hx of colonic polyps Hyperparathyroidism Non-cardiac chest pain Other forms of migraine Parathyroid adenoma Schatzki's ring Senile osteoporosis PAST SURGICAL HISTORY Procedure Laterality Date COLONOSCOPY 12/31/2006 collagenous colitis EGD 09/06/2008 Slightly patulous GE junctoin, neg H Pylori EGD 08/25/2018 EGD 04/02/2023 mild chronic inflammation of the stomach PARATHYROIDECTOMY/EXPLORATION PARATHYROIDS 2002 Removal parathyroid gland ALLERGIES Acetaminophen, Morphine, Niacin, and Zmtftsi-Bdw-Dqj Reductase Inhibitors MEDICATIONS propranolol (INDERAL) 80 mg tabletTake 1 tablet by mouth twice daily.Disp: 180 tabletRfl: 1 chlorthalidone (HYGROTON) 25 mg tabletTake 1 tablet by mouth once daily.Disp: 90 tabletRfl: 1 omeprazole (PRILOSEC) 20 mg capsuleTake 1 capsule by mouth twice daily.Disp: 60 capsuleRfl: 3 cetirizine (ZYRTEC) 10 mg tabletTAKE 1 TABLET BY MOUTH EVERY DAYDisp: 90 tabletRfl: 1 Cholecalciferol, Vitamin D3, 5,000 unit capTake 1 capsule by mouth once daily.Disp: 90 capsuleRfl: 3 calcium carbonate (CALTRATE) 600 mg calcium (1,500 mg) [id number] mg once daily. Disp: Rfl: 0 FAMILY HISTORY Problem Relation Age of Onset Diabetes Mother Cancer Father Lung Cancer other (Leukemia) Sister Colon Cancer No Family History Social History Tobacco Use Smoking status: Never Smokeless tobacco: Never Vaping Use Vaping Use: Never used Substance Use Topics Alcohol use: Not Currently Comment: Rarely Drug use: Never BP 136/68 Pulse 72 Temp 36.4 ?C (97.6 ?F) Resp 18 Wt 70.8 kg (156 lb) SpO2 97% BMI 26.78 kg/m? Review of Systems Constitutional: Negative for chills, fever and malaise/fatigue. HENT: Negative for congestion, ear discharge, ear pain, sinus pain and sore throat. Eyes: Negative for blurred vision, pain, discharge and redness. Respiratory: Negative for cough, hemoptysis, sputum production, shortness of breath, wheezing and stridor. Cardiovascular: Negative for chest pain. Gastrointestinal: Negative for abdominal pain, diarrhea, nausea and vomiting. Musculoskeletal: Negative for myalgias. Skin: Positive for itching and rash. Neurological: Negative for dizziness and headaches. Objective Physical Exam Constitutional: General: She is not in acute distress. Appearance: She is not toxic-appearing. HENT: Head: Normocephalic. Nose: Nose normal. Eyes: Pupils: Pupils are equal, round, and reactive to light. Cardiovascular: Rate and Rhythm: Normal rate. Pulmonary: Effort: Pulmonary effort is normal. No respiratory distress. Musculoskeletal: Cervical back: Normal range of motion. Lymphadenopathy: Cervical: No cervical adenopathy. Skin: General: Skin is warm and dry. Comments: Erythematous macular papular rash fluid-filled vesicles noted highlighted area. No remote redness. No breaks in skin. Spares palms of hands soles of feet. No mucosal membrane involvement Neurological: General: No focal deficit present. Mental Status: She is alert. ASSESSMENT/PLAN: 1. Allergic contact dermatitis due to plants, except food - ICD9: 692.6, ICD10: L23.7 Diagnosed with rash. Placed on prednisone burst due to facial involvement. Risk of prednisone discussed with patient. Patient was educated on supportive therapies. Patient will follow up with primary care provider as needed. Patient was instructed to immediately proceed to emergency room for any new, worsening, or symptoms lasting longer than anticipated. The patient's clinical presentation is otherwise unremarkable at this time. Based on exam and clinical finding, the patient is stable for discharge. Plan of care was discussed with patient. Patient verbalizes understanding and agrees to plan of care. This note was generated using [employer] software. It may contain errors in wording, punctuation, or spelling. Richard Ovalle APRN.[facility] 06-17-2023 History of Presen t illness Narrative Subjective HPI Nontoxic-appearing female presents urgent care chief plaint rash. Duration of symptom 1 week. Associated symptoms erythematous pruritic rash. States prior to rash starting she was weed eating when she noticed the rash the next day. Has not used any OTC medications. History of poison sheldon this feels similar. No recent medication changes antibiotic use. Overall feels well. Denies any fever body aches chills productive cough chest pain shortness of breath pleuritic pain hemoptysis nausea vomiting abdominal pain change in bowel or bladder habits. Past medical history prescription medication use and allergies reviewed. .Patient presents with: Rash: Pt reported rash located neck, fingers, face x1 wk. PAST MEDICAL HISTORY Diagnosis Date Collagenous colitis Essential hypertension GERD (gastroesophageal reflux disease) Hiatal hernia Hx of colonic polyps Hyperparathyroidism Non-cardiac chest pain Other forms of migraine Parathyroid adenoma Schatzki's ring Senile osteoporosis PAST SURGICAL HISTORY Procedure Laterality Date COLONOSCOPY 12/31/2006 collagenous colitis EGD 09/06/2008 Slightly patulous GE junctoin, neg H Pylori EGD 08/25/2018 EGD 04/02/2023 mild chronic inflammation of the stomach PARATHYROIDECTOMY/EXPLORATION PARATHYROIDS 2001 Removal parathyroid gland ALLERGIES Acetaminophen, Morphine, Niacin, and Zzoxjmi-Bfe-Fis Reductase Inhibitors MEDICATIONS propranolol (INDERAL) 80 mg tablet^Take 1 tablet by mouth twice daily.^Disp: 180 tablet^Rfl: 1 chlorthalidone (HYGROTON) 25 mg tablet^Take 1 tablet by mouth once daily.^Disp: 90 tablet^Rfl: 1 omeprazole (PRILOSEC) 20 mg capsule^Take 1 capsule by mouth twice daily.^Disp: 60 capsule^Rfl: 3 cetirizine (ZYRTEC) 10 mg tablet^TAKE 1 TABLET BY MOUTH EVERY DAY^Disp: 90 tablet^Rfl: 1 Cholecalciferol, Vitamin D3, 5,000 unit cap^Take 1 capsule by mouth once daily.^Disp: 90 capsule^Rfl: 3 calcium carbonate (CALTRATE) 600 mg calcium (1,500 mg) tab^600 mg once daily. ^Disp: ^Rfl: 0 FAMILY HISTORY Problem Relation Age of Onset Diabetes Mother Cancer Father Lung Cancer other (Leukemia) Sister Colon Cancer No Family History Social History Tobacco Use Smoking status: Never Smokeless tobacco: Never Vaping Use Vaping Use: Never used Substance Use Topics Alcohol use: Not Currently Comment: Rarely Drug use: Never BP 136/68 Pulse 72 Temp 36.4 C (97.6 F) Resp 18 Wt 70.8 kg (156 lb) SpO2 97% BMI 26.78 kg/m Review of Systems Constitutional: Negative for chills, fever and malaise/fatigue. HENT: Negative for congestion, ear discharge, ear pain, sinus pain and sore throat. Eyes: Negative for blurred vision, pain, discharge and redness. Respiratory: Negative for cough, hemoptysis, sputum production, shortness of breath, wheezing and stridor. Cardiovascular: Negative for chest pain. Gastrointestinal: Negative for abdominal pain, diarrhea, nausea and vomiting. Musculoskeletal: Negative for myalgias. Skin: Positive for itching and rash. Neurological: Negative for dizziness and headaches. Objective Physical Exam Constitutional: General: She is not in acute distress. Appearance: She is not toxic-appearing. HENT: Head: Normocephalic. Nose: Nose normal. Eyes: Pupils: Pupils are equal, round, and reactive to light. Cardiovascular: Rate and Rhythm: Normal rate. Pulmonary: Effort: Pulmonary effort is normal. No respiratory distress. Musculoskeletal: Cervical back: Normal range of motion. Lymphadenopathy: Cervical: No cervical adenopathy. Skin: General: Skin is warm and dry. Comments: Erythematous macular papular rash fluid-filled vesicles noted highlighted area. No remote redness. No breaks in skin. Spares palms of hands soles of feet. No mucosal membrane involvement Neurological: General: No focal deficit present. Mental Status: She is alert. ASSESSMENT/PLAN: 1. Allergic contact dermatitis due to plants, except food - ICD9: 692.6, ICD10: L23.7 Diagnosed with rash. Placed on prednisone burst due to facial involvement. Risk of prednisone discussed with patient. Patient was educated on supportive therapies. Patient will follow up with primary care provider as needed. Patient was instructed to immediately proceed to emergency room for any new, worsening, or symptoms lasting longer than anticipated. The patient's clinical presentation is otherwise unremarkable at this time. Based on exam and clinical finding, the patient is stable for discharge. Plan of care was discussed with patient. Patient verbalizes understanding and agrees to plan of care. This note was generated using [employer] software. It may contain errors in wording, punctuation, or spelling. Richard Ovalle APRN.[facility]USS documented in this encounter [facility] 04-02-2023 Note HNO ID: [id number] Author: Modesto Campos, JAYANT Service: Gastroenterology Author Type: Registered Nurse Type: Nursing Progress Note Filed: 04/02/2023 10:43 AM Note Text: Physician at bedside. [facility] 02-19-2023 Note HNO ID: [id number] Author: Silverio Gale MD Service: ? Author Type: Physician Type: Progress Notes Filed: 02/19/2023 4:41 PM Note Text: CHIEF COMPLAINT Patient presents with: 4 month f/u HISTORY OF PRESENT ILLNESS Peyman Blandon is a 77 year old female who presents here today for follow up evaluation of hypertension. I last saw this patient on 10/24/2022. Hypertension Managed on chlorthalidone 25 mg and propanolol 80 mg Adherent to regimen. Tolerating it well Reports feeling better than she has in a long time Has cut back a lot on working. 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 Likes to participate in a sack lunch program there Is traveling to [place] soon GERD Managed on omeprazole 20 mg Follows GI Her GI will be placing a scope next month Health Maintenance Due for DTAP Due for COVID booster Due for Hepatitis C screening Due for fecal occult blood Due for advance directive discussion Due for depression screening Labs reviewed. Past medical history, appointments, medications, allergies reviewed. REVIEW OF SYSTEMS Pertinent positives/ negatives: General: Feels well, no fever, no chills. HEENT: No sinus congestion, earache, sore throat. Cardiac: No chest pain, palpitations Resp: No cough, wheeze, shortness of breath GI: No reflux symptoms, food intolerance, bowel changes. : No urinary frequency, dysuria. MS: No pain or joint complaints. PAST MEDICAL HISTORY PAST MEDICAL HISTORY Diagnosis Date Collagenous colitis Essential hypertension GERD (gastroesophageal reflux disease) Hiatal hernia Hx of colonic polyps Hyperparathyroidism Non-cardiac chest pain Other forms of migraine Parathyroid adenoma Schatzki's ring Senile osteoporosis PHYSICAL EXAMINATION BP 131/55 Pulse (!) 54 Ht 162.6 cm (5' 4 ) Wt 68.5 kg (151 lb) SpO2 99% BMI 25.92 kg/m? Repeat BP: 142/64 General: Alert, well developed, well nourished, no distress, pleasant and cooperative. Heart: Regular rate and rhythm. Normal S1 and S2. No murmurs, rubs, or gallops. Lungs: Clear to auscultation bilaterally. No respiratory distress. No wheezes, rales, or rhonchi. Abdomen: Soft, non-tender, no distention. Extremities: Feet/ankles without edema, posterior tibial pulses full and symmetrical. Data Reviewed Latest Reference Range AND Units 09/09/22 10:24 Sodium 136 - 144 mmol/L 138 Potassium 3.7 - 5.1 mmol/L 4.4 Chloride 97 - 105 mmol/L 100 CO2 22 - 30 mmol/L 28 BUN 7 - 21 mg/dL 16 Creatinine 0.58 - 0.96 mg/dL 0.99 (H) Glucose 74 - 99 mg/dL 112 (H) Calcium 8.5 - 10.2 mg/dL 9.2 Anion Gap 9 - 18 mmol/L 10 eGFR >=60 mL/min/1.73m? 58 (L) (H): Data is abnormally high (L): Data is abnormally low Assessment/Plan (I10) Hypertension, essential (primary encounter diagnosis) (I10) White coat syndrome with diagnosis of hypertension Comment: controlled, adherent to regimen Plan: BASIC METABOLIC PNL, propranolol (INDERAL) 80 mg tablet, chlorthalidone (HYGROTON) 25 mg tablet (K21.9) Gastroesophageal reflux disease without esophagitis Comment: controlled, follows GI Plan: continue current regimen (E78.5) Hyperlipidemia, unspecified hyperlipidemia type (Z78.9) Statin intolerance Comment: stable, due for labs Plan: continue to monitor (Z23) Encounter for immunization Comment: would like booster for traveling Plan: [employer] COVID-19 BIVALENT BOOSTER VACCINE, AGE 12+ YR Requested Prescriptions Signed Prescriptions Disp Refills propranolol (INDERAL) 80 mg tablet 180 tablet 1 Sig: Take 1 tablet by mouth twice daily. chlorthalidone (HYGROTON) 25 mg tablet 90 tablet 1 Sig: Take 1 tablet by mouth once daily. RTO: 6 months for lab work Scribe Attestation: By signing my name below, Senia Humphreys, attest that this documentation has been prepared under the direction and in the presence of Richard Gale M.D. Electronically Signed: Avni Dempsey. February 19, 2023 7:40 AM .Provider Attestation: I, Silverio Gale MD, personally performed the services described in this documentation. All medical record entries made by the scribe were at my direction and in my presence. I have reviewed the chart and discharge instructions (if applicable) and agree that the record reflects my personal performance and is accurate and complete. Electronically Signed: Silverio Gale MD February 19, 2023 4:39 PM [facility] 01-13-2023 Note HNO ID: [id number] Author: Maria Victoria Woodward PA-C Service: ? Author Type: Physician Medication Care Manager Type: Progress Notes Filed: 01/13/2023 10:58 AM Note Text: CHIEF COMPLAINT: Patient presents with: Recheck: No concerns HPI Peyman Blandon is a 77 year old female here today for Recheck (No concerns) Patient tells me that she is doing okay today. Has been working with getting her BP under control. Notes some improvement with Omeprazole. Stopped the second dose due to hiccups after eating. Notes voice hoarseness. Still some GERD in the evening time. Going to [place] in February. Last OV with me 10/14/2022: Assessment/Plan (K21.9) Gastroesophageal reflux disease without esophagitis (primary encounter diagnosis) 1. Gastroesophageal reflux disease without esophagitis -- Doing better on Omeprazole 20 mg BID. Notes insurance wants her on Protonix or Nexium. Notes side effects to Nexium in the past. She will plan to get this OTC. -- Consider EGD in no improvement Follow up in office 3 months/PRN. Current Outpatient Medications Medication Sig chlorthalidone (HYGROTON) 25 mg tablet TAKE 1 TABLET BY MOUTH EVERY DAY propranolol (INDERAL) 80 mg tablet Take 1 tablet by mouth twice daily. omeprazole (PRILOSEC) 20 mg capsule Take 1 capsule by mouth twice daily. cetirizine (ZYRTEC) 10 mg tablet TAKE 1 TABLET BY MOUTH EVERY DAY Cholecalciferol, Vitamin D3, 5,000 unit cap Take 1 capsule by mouth once daily. calcium carbonate (CALTRATE) 600 mg calcium (1,500 mg) tab 600 mg once daily. No current facility-administered medications for this visit. ALLERGIES Allergen Reactions Acetaminophen Other: See Comments Morphine Other: See Comments Gets really sick Niacin Other: See Comments extreme flushing Tzawvki-Qup-Fmg Red* Intolerance Social History Tobacco Use Smoking status: Never Smokeless tobacco: Never Vaping Use Vaping Use: Never used Substance Use Topics Alcohol use: Not Currently Comment: Rarely Drug use: Never PAST MEDICAL HISTORY Diagnosis Date Collagenous colitis Essential hypertension GERD (gastroesophageal reflux disease) Hiatal hernia Hx of colonic polyps Hyperparathyroidism Non-cardiac chest pain Other forms of migraine Parathyroid adenoma Schatzki's ring Senile osteoporosis PAST SURGICAL HISTORY Procedure Laterality Date COLONOSCOPY 12/31/2006 collagenous colitis EGD 09/06/2008 Slightly patulous GE junctoin, neg H Pylori EGD 08/25/2018 PARATHYROIDECTOMY/EXPLORATION PARATHYROIDS 2002 Removal parathyroid gland FAMILY HISTORY Problem Relation Age of Onset Diabetes Mother Cancer Father Lung Cancer other (Leukemia) Sister Colon Cancer No Family History REVIEW OF SYSTEMS Review of Systems Gastrointestinal: Heartburn All other systems reviewed and are negative. PHYSICAL EXAM Ht 5' 4 (1.63m) Wt 155 lb (70.3kg) BMI 26.59 kg/(m2). Physical Exam Constitutional: Appearance: Normal appearance. She is normal weight. HENT: Head: Normocephalic and atraumatic. Eyes: General: No scleral icterus. Extraocular Movements: Extraocular movements intact. Conjunctiva/sclera: Conjunctivae normal. Pupils: Pupils are equal, round, and reactive to light. Cardiovascular: Rate and Rhythm: Normal rate and regular rhythm. Pulses: Normal pulses. Heart sounds: Normal heart sounds. Pulmonary: Effort: Pulmonary effort is normal. Breath sounds: Normal breath sounds. Abdominal: General: Abdomen is flat. Bowel sounds are normal. Palpations: Abdomen is soft. Tenderness: There is no abdominal tenderness. Musculoskeletal: General: Normal range of motion. Cervical back: Normal range of motion and neck supple. Skin: General: Skin is warm and dry. Coloration: Skin is not jaundiced. Neurological: General: No focal deficit present. Mental Status: She is alert and oriented to person, place, and time. Psychiatric: Mood and Affect: Mood normal. Behavior: Behavior normal. Thought Content: Thought content normal. Judgment: Judgment normal. Assessment/Plan (K21.9) Gastroesophageal reflux disease without esophagitis (primary encounter diagnosis) 1. Gastroesophageal reflux disease without esophagitis -- Patient with ongoing GERD symptoms. Current on Omeprazole 20 mg daily. Stopped the second dose as it was causing hiccups. -- Continue on Omeprazole 20 mg. Okay to use Pepcid PRN -- Plan for EGD for further evaluation - EGD DIAGNOSTIC; Future Follow up in office PRN. Recommended to please call office/go to ER if fever, chills, chest pain, SOB, diarrhea, nausea, emesis, worsening abdominal pain, dehydration occurs I spent 20 minutes in the visit, with more than 50% of the total [id number]-bi-[id number] time of the visit in counseling / coordination of care. I have confirmed and edited as necessary, the PFSH and ROS obtained by others. Maria Victoria Woodward PA-C January 13, 2023 10:51 AM [facility] 01-13-2023 Instructions Maria Victoria Woodward PA-C - 01/13/2023 10:50 AM EST -- Can try over the counter Pepcid ( Famotidine ) in the evening time as needed Recommend high protein, high fiber diet. Promotion of salivation through oral lozenges/chewing gum Drink plenty of water Avoid NSAIDs (such as Advil, Ibuprofen, Excedrin, Mobic), tobacco, alcohol, carbonated beverages, caffeine, chocolate, tomato based sauces, spicy/fatty foods, and peppermint Avoid eating less than 3 hours before bed. Elevate the head of the bed 6 inches, or invest in a wedge pillow. Laying on left side with head elevated may help alleviate reflux symptoms. documented in this encounter [facility] 01-13-2023 History of Presen t illness Narrative CHIEF COMPLAINT: Patient presents with: Recheck: No concerns HPI Peyman Blandon is a 77 year old female here today for Recheck (No concerns) Patient tells me that she is doing okay today. Has been working with getting her BP under control. Notes some improvement with Omeprazole. Stopped the second dose due to hiccups after eating. Notes voice hoarseness. Still some GERD in the evening time. Going to [place] in February. Last OV with me 10/14/2022: Assessment/Plan (K21.9) Gastroesophageal reflux disease without esophagitis (primary encounter diagnosis) 1. Gastroesophageal reflux disease without esophagitis -- Doing better on Omeprazole 20 mg BID. Notes insurance wants her on Protonix or Nexium. Notes side effects to Nexium in the past. She will plan to get this OTC. -- Consider EGD in no improvement Follow up in office 3 months/PRN. Current Outpatient Medications Medication Sig chlorthalidone (HYGROTON) 25 mg tablet TAKE 1 TABLET BY MOUTH EVERY DAY propranolol (INDERAL) 80 mg tablet Take 1 tablet by mouth twice daily. omeprazole (PRILOSEC) 20 mg capsule Take 1 capsule by mouth twice daily. cetirizine (ZYRTEC) 10 mg tablet TAKE 1 TABLET BY MOUTH EVERY DAY Cholecalciferol, Vitamin D3, 5,000 unit cap Take 1 capsule by mouth once daily. calcium carbonate (CALTRATE) 600 mg calcium (1,500 mg) tab 600 mg once daily. No current facility-administered medications for this visit. ALLERGIES Allergen Reactions Acetaminophen Other: See Comments Morphine Other: See Comments Gets really sick Niacin Other: See Comments extreme flushing Hzjdhmw-Rbi-Pap Red* Intolerance Social History Tobacco Use Smoking status: Never Smokeless tobacco: Never Vaping Use Vaping Use: Never used Substance Use Topics Alcohol use: Not Currently Comment: Rarely Drug use: Never PAST MEDICAL HISTORY Diagnosis Date Collagenous colitis Essential hypertension GERD (gastroesophageal reflux disease) Hiatal hernia Hx of colonic polyps Hyperparathyroidism Non-cardiac chest pain Other forms of migraine Parathyroid adenoma Schatzki's ring Senile osteoporosis PAST SURGICAL HISTORY Procedure Laterality Date COLONOSCOPY 12/31/2006 collagenous colitis EGD 09/06/2008 Slightly patulous GE junctoin, neg H Pylori EGD 08/25/2018 PARATHYROIDECTOMY/EXPLORATION PARATHYROIDS 2002 Removal parathyroid gland FAMILY HISTORY Problem Relation Age of Onset Diabetes Mother Cancer Father Lung Cancer other (Leukemia) Sister Colon Cancer No Family History REVIEW OF SYSTEMS Review of Systems Gastrointestinal: Heartburn All other systems reviewed and are negative. PHYSICAL EXAM Ht 5' 4 (1.63m) Wt 155 lb (70.3kg) BMI 26.59 kg/(m^2). Physical Exam Constitutional: Appearance: Normal appearance. She is normal weight. HENT: Head: Normocephalic and atraumatic. Eyes: General: No scleral icterus. Extraocular Movements: Extraocular movements intact. Conjunctiva/sclera: Conjunctivae normal. Pupils: Pupils are equal, round, and reactive to light. Cardiovascular: Rate and Rhythm: Normal rate and regular rhythm. Pulses: Normal pulses. Heart sounds: Normal heart sounds. Pulmonary: Effort: Pulmonary effort is normal. Breath sounds: Normal breath sounds. Abdominal: General: Abdomen is flat. Bowel sounds are normal. Palpations: Abdomen is soft. Tenderness: There is no abdominal tenderness. Musculoskeletal: General: Normal range of motion. Cervical back: Normal range of motion and neck supple. Skin: General: Skin is warm and dry. Coloration: Skin is not jaundiced. Neurological: General: No focal deficit present. Mental Status: She is alert and oriented to person, place, and time. Psychiatric: Mood and Affect: Mood normal. Behavior: Behavior normal. Thought Content: Thought content normal. Judgment: Judgment normal. Assessment/Plan (K21.9) Gastroesophageal reflux disease without esophagitis (primary encounter diagnosis) 1. Gastroesophageal reflux disease without esophagitis -- Patient with ongoing GERD symptoms. Current on Omeprazole 20 mg daily. Stopped the second dose as it was causing hiccups. -- Continue on Omeprazole 20 mg. Okay to use Pepcid PRN -- Plan for EGD for further evaluation - EGD DIAGNOSTIC; Future Follow up in office PRN. Recommended to please call office/go to ER if fever, chills, chest pain, SOB, diarrhea, nausea, emesis, worsening abdominal pain, dehydration occurs I spent 20 minutes in the visit, with more than 50% of the total [id number]-tg-[id number] time of the visit in counseling / coordination of care. I have confirmed and edited as necessary, the PFSH and ROS obtained by others. Maria Victoria Woodward PA-C January 13, 2023 10:51 AM documented in this encounter [facility] 12-06-2022 Miscellaneous Notes Patient verbalized understanding Patient has follow up in February.. Blood pressure readings are mostly acceptable. Given the difficulty getting her blood pressure to good control, I think this is good enough. Continue with current regimen Silverio Gale MD Patient called and reported home blood pressure readings as follows: 11/29/22- 9am 114/62 P- 61 5pm 145/76 P57 10pm 153/81 P-59 11/30/22- 9am 133/72 P-64 3pm 125/70 P-58 12/01 8am 138/74 P-72 9am 128/72 P-67 1pm 140/77 P-60 12/02/22 8am 139/75 P-63 10am 130/70 P-63 12/03 129/71 P-62 12/04 9am 133/76 P-62 4pm 146/75 P-60 12/05 930am 136/70 P-66 2pm 150/76 P-59 documented in this encounter [facility] 11-27-2022 Miscellaneous Notes Last appointment: 10-24-22 Next appointment: 02-19-23 Pharmacy verified in [employer]. Refill(s) requested: Requested Prescriptions Pending Prescriptions Disp Refills chlorthalidone (HYGROTON) 25 mg tablet [Pharmacy Med Name: CHLORTHALIDONE 25 MG TABLET] 30 tablet 11 Sig: TAKE 1 TABLET BY MOUTH EVERY DAY Order(s) pended. Please advise. Brunilda Crandall MA, [facility] documented in this encounter [facility] 11-25-2022 Miscellaneous Notes Refill sent to pharmacy. Requested Prescriptions Signed Prescriptions Disp Refills propranolol (INDERAL) 80 mg tablet 60 tablet 2 Sig: Take 1 tablet by mouth twice daily. Pharmacy Information Pharmacy Address [facility]/pharmacy #[id number] [address] [place] [address] Reason for Disposition [1] Caller requesting a prescription renewal (no refills left), no triage required, AND [2] triager able to renew prescription per department policy Answer Assessment - Initial Assessment Questions 1. DRUG NAME: What medicine do you need to have refilled? Propranolol 2. REFILLS REMAINING: How many refills are remaining? (Note: The label on the medicine or pill bottle will show how many refills are remaining. If there are no refills remaining, then a renewal may be needed.) None 3. EXPIRATION DATE: What is the expiration date? (Note: The label states when the prescription will , and thus can no longer be refilled.) 10/2023 4. PRESCRIBING HCP: Who prescribed it? Reason: If prescribed by specialist, call should be referred to that group. Dr. Gale 5. SYMPTOMS: Do you have any symptoms? Was having some low BP readings 6. : Is there any chance that you are ? When was your last menstrual period? N/A Protocols used: Medication Refill and Renewal [id number] documented in this encounter [facility] 10-28-2022 Miscellaneous Notes The following approved medication requests have been transmitted electronically. Requested Prescriptions Signed Prescriptions Disp Refills chlorthalidone (HYGROTON) 25 mg tablet 30 tablet 11 Sig: Take 1 tablet by mouth once daily. Authorizing Provider: SILVERIO GALE MD [facility] sent alternative request stating chlorthalidone strengths come in 25mg and 50. Placed in inbox please advise. documented in this encounter [facility] 10-24-2022 History of Presen t illness Narrative Chief Complaint Patient presents with: Follow Up: Blood pressure HPI Peyman Blandon is a 77 year old female who presents here today for BP . She has had volatile bp , increase of propranolol without that much benefit. Previous trial of lisinopril and HCTZ : she felt loopy . Not sure which caused her trouble ACTIVE PROBLEM LIST Senile Osteoporosis Migraine With Aura, Not Intractable, Without Status Migrainosus Gerd (Gastroesophageal Reflux Disease) Vitamin D Deficiency S/P Parathyroidectomy (Hcc) Hyperlipidemia Statin Intolerance Hypertension, Essential Social: winding down her role in her company [employer]. It was her and her 's and she is trying to transition it to her son. Feeling better about letting go of control. Rah in 2019. ROS: Pertinent positives/ negatives: no light headedness, headache, chest pain. No shortness of breath. No GI / symptoms. PHYSICAL EXAMINATION BP 157/79 Pulse 62 Ht 162.6 cm (5' 4.02 ) Wt 71.2 kg (157 lb) BMI 26.94 kg/m General: Alert and oriented, no distress, pleasant and cooperative. Regular rate and rhythm. S1 and S2 normal, no murmurs, clicks, gallops or rubs. No edema or JVD. Chest is clear; no wheezes or rales. Data reviewed Labs have been ok Assessment/Plan: (I10) Essential hypertension (primary encounter diagnosis) Comment: bp control suboptimal despite increase in propranolol Plan: BASIC METABOLIC PNL . (N28.9) Abnormal kidney function Comment: Plan: check lab in few mos. (E78.5) Hyperlipidemia, unspecified hyperlipidemia type Comment: Plan: LIPID PANEL BASIC (R73.9) Hyperglycemia Comment: Plan: HGB A1C Requested Prescriptions Signed Prescriptions Disp Refills Chlorthalidone 15 mg tablet 30 tablet 5 Sig: Take 1 tablet by mouth once daily. RTO: BP check with nurse on [facility], Silverio Gale MD documented in this encounter [facility] 10-14-2022 History of Presen t illness Narrative CHIEF COMPLAINT: Patient presents with: Recheck: GERD HPI Peyman Blandon is a 77 year old female here today for Recheck (GERD ) Patient tells me that she is doing better. Notes that the Omeprazole 20 mg BID is working well. Had one bad episode of heartburn since she has been here. Notes hiccups more frequently, doesn't last long. Unsure of triggers. Notes worsening voice hoarseness. Denies dysphagia, nausea, vomiting, abdominal pain. Appetite is good. Weight is stable. Last OV with 09/02/2022: Assessment/Plan (K21.9) Gastroesophageal reflux disease without esophagitis (primary encounter diagnosis) 1. Gastroesophageal reflux disease without esophagitis -- Patient with ongoing GERD symptoms despite Omeprazole 20 mg and Carafate 1g BID. -- Will have her stop the Carafate as it isn't helping and making symptoms worse. -- Plan to increase Omeprazole to 20 mg BID. Script sent to pharmacy. -- If no relief, may benefit from additional testing. - omeprazole (PRILOSEC) 20 mg capsule; Take 1 capsule by mouth twice daily. Dispense: 60 capsule; Refill: 3 Follow up in office 6 weeks/PRN. Current Outpatient Medications Medication Sig propranolol (INDERAL) 80 mg tablet Take 1 tablet by mouth twice daily. omeprazole (PRILOSEC) 20 mg capsule Take 1 capsule by mouth twice daily. Cholecalciferol, Vitamin D3, 5,000 unit cap Take 1 capsule by mouth once daily. calcium carbonate (CALTRATE) 600 mg calcium (1,500 mg) tab 600 mg once daily. cetirizine (ZYRTEC) 10 mg tablet TAKE 1 TABLET BY MOUTH EVERY DAY (Patient not taking: Reported on 10/14/2022) No current facility-administered medications for this visit. ALLERGIES Allergen Reactions Acetaminophen Other: See Comments Morphine Other: See Comments Gets really sick Niacin Other: See Comments extreme flushing Sgimamp-Mhy-Icm Red* Intolerance Social History Tobacco Use Smoking status: Never Smokeless tobacco: Never Vaping Use Vaping Use: Never used Substance Use Topics Alcohol use: Not Currently Comment: Rarely Drug use: Never PAST MEDICAL HISTORY Diagnosis Date Collagenous colitis Essential hypertension GERD (gastroesophageal reflux disease) Hiatal hernia Hx of colonic polyps Hyperparathyroidism Non-cardiac chest pain Other forms of migraine Parathyroid adenoma Schatzki's ring Senile osteoporosis PAST SURGICAL HISTORY Procedure Laterality Date COLONOSCOPY 12/31/2006 collagenous colitis EGD 09/06/2008 Slightly patulous GE junctoin, neg H Pylori EGD 08/25/2018 PARATHYROIDECTOMY/EXPLORATION PARATHYROIDS 2002 Removal parathyroid gland FAMILY HISTORY Problem Relation Age of Onset Diabetes Mother Cancer Father Lung Cancer other (Leukemia) Sister Colon Cancer No Family History REVIEW OF SYSTEMS Review of Systems Gastrointestinal: Heartburn All other systems reviewed and are negative. PHYSICAL EXAM BP 152/81 Pulse 52 Ht 5' 4 (1.63m) Wt 156 lb 4.8 oz (70.9kg) BMI 26.82 kg/(m^2). Physical Exam Constitutional: Appearance: Normal appearance. She is normal weight. HENT: Head: Normocephalic and atraumatic. Eyes: General: No scleral icterus. Extraocular Movements: Extraocular movements intact. Conjunctiva/sclera: Conjunctivae normal. Pupils: Pupils are equal, round, and reactive to light. Cardiovascular: Rate and Rhythm: Normal rate and regular rhythm. Pulses: Normal pulses. Heart sounds: Normal heart sounds. Pulmonary: Effort: Pulmonary effort is normal. Breath sounds: Normal breath sounds. Abdominal: General: Abdomen is flat. Bowel sounds are normal. Palpations: Abdomen is soft. Tenderness: There is no abdominal tenderness. Musculoskeletal: General: Normal range of motion. Cervical back: Normal range of motion and neck supple. Skin: General: Skin is warm and dry. Coloration: Skin is not jaundiced. Neurological: General: No focal deficit present. Mental Status: She is alert and oriented to person, place, and time. Psychiatric: Mood and Affect: Mood normal. Behavior: Behavior normal. Thought Content: Thought content normal. Judgment: Judgment normal. Assessment/Plan (K21.9) Gastroesophageal reflux disease without esophagitis (primary encounter diagnosis) 1. Gastroesophageal reflux disease without esophagitis -- Doing better on Omeprazole 20 mg BID. Notes insurance wants her on Protonix or Nexium. Notes side effects to Nexium in the past. She will plan to get this OTC. -- Consider EGD in no improvement Follow up in office 3 months/PRN. Recommended to please call office/go to ER if fever, chills, chest pain, SOB, diarrhea, nausea, emesis, worsening abdominal pain, dehydration occurs I spent 25 minutes in the visit, with more than 50% of the total jjwy-xj-lvbf time of the visit in counseling / coordination of care. I have confirmed and edited as necessary, the PFSH and ROS obtained by others. Maria Victoria Woodward PA-C October 14, 2022 10:31 AM documented in this encounter [facility] 10-11-2022 Miscellaneous Notes The following approved medication requests have been transmitted electronically. Requested Prescriptions Signed Prescriptions Disp Refills propranolol (INDERAL) 80 mg tablet 60 tablet 11 Sig: Take 1 tablet by mouth twice daily. Authorizing Provider: SILVERIO GALE MD She is agreeable to the medication increase Please send to her pharmacy [facility] Next follow up is 10/24/22 She currently has 60 mg tabs in the home LM for patient to call office. Dr. Gale suggested increasing the propranolol to 80 mg twice daily if she's agreeable. If so, I'll send that in and have her send some more blood pressure/pulse readings in a couple weeks and let us know if she has any adverse effects. Samantha Llanos APRN.RUSS Patient said that one of the medications made her feel loopy. She said that Propanol has been the only medication that has worked for her. Blood pressure too high, she needs to be on something in addition to the propranolol for blood pressure. Has she taken/ tolerated any other blood pressure med in past. I see an Rx for lisinopril but not clear that she took it. Silverio Gale MD Blood pressure log patient brought from home was placed in provider inbox tray. documented in this encounter [facility] 10-07-2022 Nurse Note Patient is here for a blood pressure check Does patient report chest pain? No Does patient report dizziness? No Does patient report shortness of breath? No Any complaints voiced by patient? No Readings Today: Right: BP 153/84 HR 56 Left: BP 163/80 HR 56 Patient machine from home, today in office: Left: 153/88 Patient notes Needs refill for Propranolol sent to [facility]. Reports readings at home have been Patient brought log from home and readings range: 130s/60s - 150s/70s. Copied for scanning. Medications reviewed? Yes Next Appointment: 10/24/22 Dr. Gale documented in this encounter [facility] 09-12-2022 History of Presen t illness Narrative This note was created using valuescope. Subjective Peyman Blandon is a 77 year old female. Patient here for yearly check-up, last saw PCP 09/12/2021. Reviewed recent lab results with abnormal kidney function. HTN: taking propranolol 60 mg BID, was increased at last PCP visit. Hasn't been checking her blood pressure's in the last couple months. Recently saw her GI provider and omeprazole was increased to 20 mg BID, follow up scheduled in a couple weeks. The history is provided by the patient. Review of Systems Constitutional: Negative for unexpected weight change. Eyes: Negative for visual disturbance. Respiratory: Positive for shortness of breath (sometimes with strenuous activity). Negative for cough, chest tightness and wheezing. Cardiovascular: Negative for chest pain and palpitations. Gastrointestinal: Negative for abdominal pain, constipation and diarrhea. Genitourinary: Negative for difficulty urinating. Musculoskeletal: Positive for arthralgias. Negative for joint swelling. Allergic/Immunologic: Negative for immunocompromised state. Neurological: Negative for dizziness and headaches. Hematological: Does not bruise/bleed easily. PAST MEDICAL HISTORY Diagnosis Date Collagenous colitis Essential hypertension GERD (gastroesophageal reflux disease) Hiatal hernia Hx of colonic polyps Hyperparathyroidism Non-cardiac chest pain Other forms of migraine Parathyroid adenoma Schatzki's ring Senile osteoporosis PAST SURGICAL HISTORY Procedure Laterality Date COLONOSCOPY 12/31/2006 collagenous colitis EGD 09/06/2008 Slightly patulous GE junctoin, neg H Pylori EGD 08/25/2018 PARATHYROIDECTOMY/EXPLORATION PARATHYROIDS 2002 Removal parathyroid gland ALLERGIES Acetaminophen, Morphine, Niacin, and Crcohyt-Vyw-Hxm Reductase Inhibitors MEDICATIONS omeprazole (PRILOSEC) 20 mg capsule Take 1 capsule by mouth twice daily. cetirizine (ZYRTEC) 10 mg tablet TAKE 1 TABLET BY MOUTH EVERY DAY (Patient taking differently: 10 mg as needed.) propranolol (INDERAL) 60 mg tablet Take 1 tablet by mouth twice daily. Cholecalciferol, Vitamin D3, 5,000 unit cap Take 1 capsule by mouth once daily. calcium carbonate (CALTRATE) 600 mg calcium (1,500 mg) tab 600 mg once daily. FAMILY HISTORY Problem Relation Age of Onset Diabetes Mother Cancer Father Lung Cancer other (Leukemia) Sister Colon Cancer No Family History Social History Tobacco Use Smoking status: Never Smokeless tobacco: Never Vaping Use Vaping Use: Never used Substance Use Topics Alcohol use: Not Currently Comment: Rarely Drug use: Never Objective BP 165/84 Pulse (!) 58 Ht 162.6 cm (5' 4.02 ) Wt 70.3 kg (155 lb) BMI 26.59 kg/m Physical Exam Vitals and nursing note reviewed. Constitutional: Appearance: She is well-developed. She is not ill-appearing. Eyes: Conjunctiva/sclera: Conjunctivae normal. Cardiovascular: Rate and Rhythm: Normal rate and regular rhythm. Heart sounds: Normal heart sounds. Pulmonary: Effort: Pulmonary effort is normal. Breath sounds: Normal breath sounds. Musculoskeletal: Right lower leg: No edema. Left lower leg: No edema. Skin: General: Skin is warm and dry. Neurological: Mental Status: She is alert and oriented to person, place, and time. Psychiatric: Mood and Affect: Mood normal. Behavior: Behavior normal. Thought Content: Thought content normal. Assessment and Plan 1. Hypertension, essential Above goal. Advised to start checking blood pressure's at home daily and schedule nurse visit in 2-3 weeks to re-check. Bring list of home readings and home cuff to check accuracy. If still elevated, will add on medication. Patient has a history of intolerance to multiple blood pressure medications. 2. Abnormal kidney function Will recheck labs in a month. Schedule with provider. 3. Gastroesophageal reflux disease, unspecified whether esophagitis present Following with GI. 4. Encounter for immunization - INFLUENZA SEASONAL QUADRIVALENT HIGH DOSE AGE 65+ Samantha Llanos APRN.RUSS documented in this encounter [facility] 09-02-2022 History of Presen t illness Narrative CHIEF COMPLAINT: Patient presents with: Recheck: GERD- heartburn- needs refills HPI Peyman Blandon is a 77 year old female here today for Recheck (GERD- heartburn- needs refills ) Patient tells me that she is feeling about the same today. Still taking the Prilosec 20 mg daily and Carafate BID. Unsure if it is helping. Still having upset stomach and a lot of reflux. Relying on Tums throughout the day. Denies dysphagia but feels like the carafate is sitting in her throat. Vomiting on occasion. Last OV with Dr. Chavez 03/08/2022: ASSESSMENT: Gastroesophageal reflux disease without esophagitis (primary encounter diagnosis) Non-cardiac chest pain PLAN: No orders found for this visit on 03/08/22. Return in about 6 months (around 09/07/2022). Continue low dose prilosec and carafate bid Current Outpatient Medications Medication Sig omeprazole (PRILOSEC) 20 mg capsule TAKE 1 CAPSULE BY MOUTH EVERY DAY sucralfate (CARAFATE) 1 gram tablet TAKE 1 TABLET BY MOUTH TWICE A DAY cetirizine (ZYRTEC) 10 mg tablet TAKE 1 TABLET BY MOUTH EVERY DAY propranolol (INDERAL) 60 mg tablet Take 1 tablet by mouth twice daily. Cholecalciferol, Vitamin D3, 5,000 unit cap Take 1 capsule by mouth once daily. calcium carbonate (CALTRATE) 600 mg calcium (1,500 mg) tab 600 mg once daily. No current facility-administered medications for this visit. ALLERGIES Allergen Reactions Acetaminophen Other: See Comments Morphine Other: See Comments Gets really sick Niacin Other: See Comments extreme flushing Kalkyar-Fvc-Jjv Red* Intolerance Social History Tobacco Use Smoking status: Never Smokeless tobacco: Never Vaping Use Vaping Use: Never used Substance Use Topics Alcohol use: Not Currently Comment: Rarely Drug use: Never PAST MEDICAL HISTORY Diagnosis Date Collagenous colitis Essential hypertension GERD (gastroesophageal reflux disease) Hiatal hernia Hx of colonic polyps Hyperparathyroidism Non-cardiac chest pain Other forms of migraine Parathyroid adenoma Schatzki's ring Senile osteoporosis PAST SURGICAL HISTORY Procedure Laterality Date COLONOSCOPY 12/31/2006 collagenous colitis EGD 09/06/2008 Slightly patulous GE junctoin, neg H Pylori EGD 08/25/2018 PARATHYROIDECTOMY/EXPLORATION PARATHYROIDS 2002 Removal parathyroid gland FAMILY HISTORY Problem Relation Age of Onset Diabetes Mother Cancer Father Lung Cancer other (Leukemia) Sister Colon Cancer No Family History REVIEW OF SYSTEMS Review of Systems HENT: Positive for hearing loss. Gastrointestinal: Heartburn All other systems reviewed and are negative. PHYSICAL EXAM BP 162/86 Pulse 68 Ht 5' 4 (1.63m) Wt 156 lb 12.8 oz (71.1kg) BMI 26.90 kg/(m^2). Physical Exam Constitutional: Appearance: Normal appearance. She is normal weight. HENT: Head: Normocephalic and atraumatic. Eyes: General: No scleral icterus. Cardiovascular: Rate and Rhythm: Normal rate and regular rhythm. Pulses: Normal pulses. Heart sounds: Normal heart sounds. Pulmonary: Effort: Pulmonary effort is normal. Breath sounds: Normal breath sounds. Abdominal: General: Abdomen is flat. Bowel sounds are normal. Palpations: Abdomen is soft. Tenderness: There is no abdominal tenderness. Musculoskeletal: General: Normal range of motion. Cervical back: Normal range of motion and neck supple. Skin: General: Skin is warm and dry. Coloration: Skin is not jaundiced. Neurological: General: No focal deficit present. Mental Status: She is alert and oriented to person, place, and time. Psychiatric: Mood and Affect: Mood normal. Behavior: Behavior normal. Thought Content: Thought content normal. Judgment: Judgment normal. Assessment/Plan (K21.9) Gastroesophageal reflux disease without esophagitis (primary encounter diagnosis) 1. Gastroesophageal reflux disease without esophagitis -- Patient with ongoing GERD symptoms despite Omeprazole 20 mg and Carafate 1g BID. -- Will have her stop the Carafate as it isn't helping and making symptoms worse. -- Plan to increase Omeprazole to 20 mg BID. Script sent to pharmacy. -- If no relief, may benefit from additional testing. - omeprazole (PRILOSEC) 20 mg capsule; Take 1 capsule by mouth twice daily. Dispense: 60 capsule; Refill: 3 Follow up in office 6 weeks/PRN. Recommended to please call office/go to ER if fever, chills, chest pain, SOB, diarrhea, nausea, emesis, worsening abdominal pain, dehydration occurs I spent 25 minutes in the visit, with more than 50% of the total [id number] time of the visit in counseling / coordination of care. I have confirmed and edited as necessary, the PFSH and ROS obtained by others. Maria Victoria Woodwadr PA-C September 02, 2022 10:23 AM documented in this encounter [facility] 08-15-2022 Miscellaneous Notes Tried to call patient unable to LV. documented in this encounter [facility] 08-14-2022 Miscellaneous Notes Pt notified Janiya Edmondson Ma Medication not preferred by insurance. Switch or have pt get OTC? Janiya Edmondson Ma documented in this encounter [facility] 08-14-2022 Miscellaneous Notes Patient phones requesting refills as follows: Requested Prescriptions Pending Prescriptions Disp Refills omeprazole (PRILOSEC) 20 mg capsule [Pharmacy Med Name: OMEPRAZOLE DR 20 MG CAPSULE] 90 capsule 2 Sig: TAKE 1 CAPSULE BY MOUTH EVERY DAY sucralfate (CARAFATE) 1 gram tablet [Pharmacy Med Name: SUCRALFATE 1 GM TABLET] 180 tablet 2 Sig: TAKE 1 TABLET BY MOUTH TWICE A DAY Please review and advise. Janiya Edmondson Ma documented in this encounter [facility] 06-19-2022 History of Presen t illness Narrative This note was created using NoteWriter. Subjective Peyman Blandon is a 76 year old female. HPI Presents with a rash on her face neck and wrist area over the past day. She has been in the garden weeding and also was picking some corn prior to the rash. She thinks she got into some poison sheldon. No fevers or chills. No other new exposures. Is very itchy. Review of Systems Constitutional: Negative. HENT: Negative. Respiratory: Negative. Cardiovascular: Negative. Gastrointestinal: Negative. Skin: Positive for rash. All other systems reviewed and are negative. PAST MEDICAL HISTORY Diagnosis Date Collagenous colitis Essential hypertension GERD (gastroesophageal reflux disease) Hiatal hernia Hx of colonic polyps Hyperparathyroidism Non-cardiac chest pain Other forms of migraine Parathyroid adenoma Schatzki's ring Senile osteoporosis Current Outpatient Medications Medication Sig Dispense Refill predniSONE (DELTASONE) 10 mg tablet Take 4 tabs daily for 3 days, then 2 tabs daily for 3 days, then 1 tab daily for 3 days with food. 21 tablet 0 cetirizine (ZYRTEC) 10 mg tablet TAKE 1 TABLET BY MOUTH EVERY DAY 90 tablet 1 propranolol (INDERAL) 60 mg tablet Take 1 tablet by mouth twice daily. 180 tablet 3 omeprazole (PRILOSEC) 20 mg capsule Take 1 capsule by mouth once daily. 90 capsule 3 sucralfate (CARAFATE) 1 gram tablet Take 1 tablet by mouth twice daily. 180 tablet 2 Cholecalciferol, Vitamin D3, 5,000 unit cap Take 1 capsule by mouth once daily. 90 capsule 3 calcium carbonate (CALCIUM 600) 600 mg (1,500 mg) Tab 600 mg once daily. 0 No current facility-administered medications for this visit. PAST SURGICAL HISTORY Procedure Laterality Date COLONOSCOPY 12/31/2006 collagenous colitis EGD 09/06/2008 Slightly patulous GE junctoin, neg H Pylori EGD 08/25/2018 PARATHYROIDECTOMY/EXPLORATION PARATHYROIDS 2002 Removal parathyroid gland FAMILY HISTORY Problem Relation Age of Onset Diabetes Mother Cancer Father Lung Cancer other (Leukemia) Sister Colon Cancer No Family History Social History Tobacco Use Smoking status: Never Smokeless tobacco: Never Vaping Use Vaping Use: Never used Substance Use Topics Alcohol use: Not Currently Comment: Rarely Drug use: Never Objective BP 120/74 Pulse 76 Temp 36.4 C (97.6 F) Resp 20 Wt 70.5 kg (155 lb 6.4 oz) SpO2 97% BMI 26.67 kg/m Physical Exam Vitals reviewed. Constitutional: Appearance: Normal appearance. HENT: Head: Normocephalic and atraumatic. Comments: Patient has papular erythematous scattered rash on her cheeks and neck bilaterally. Also area on her right wrist. Neurological: Mental Status: She is alert. Assessment and Plan ASSESSMENT/PLAN: 1. Allergic contact dermatitis due to plants, except food - ICD9: 692.6, ICD10: L23.7 - Oral Steriod tx -Prednisone taper - discussed skin care of rash - follow up if symptoms persist or worsen. Josefa Heard PA-C documented in this encounter [facility] 03-08-2022 History of Presen t illness Narrative CHIEF COMPLAINT: Patient presents with: Recheck: GERD HPI Peyman Blandon is a 76 year old female here today for Recheck (GERD), on Prilosec 20 mg and crafate bid. Some days has upset stomach and has to take oral antiacids. No vomiting. Throat burning from reflux, sometimes reclining reflux. Current Outpatient Medications Medication Sig cetirizine (ZYRTEC) 10 mg tablet TAKE 1 TABLET BY MOUTH EVERY DAY propranolol (INDERAL) 60 mg tablet Take 1 tablet by mouth twice daily. omeprazole (PRILOSEC) 20 mg capsule Take 1 capsule by mouth once daily. sucralfate (CARAFATE) 1 gram tablet Take 1 tablet by mouth twice daily. Cholecalciferol, Vitamin D3, 5,000 unit cap Take 1 capsule by mouth once daily. calcium carbonate (CALCIUM 600) 600 mg (1,500 mg) Tab 600 mg once daily. No current facility-administered medications for this visit. ALLERGIES Allergen Reactions Morphine Other: See Comments Gets really sick Niacin Other: See Comments extreme flushing Ysyhbzc-Ouz-Jlt Red* Intolerance Social History Tobacco Use Smoking status: Never Smoker Smokeless tobacco: Never Used Vaping Use Vaping Use: Never used Substance Use Topics Alcohol use: Not Currently Comment: Rarely Drug use: Never PAST MEDICAL HISTORY Diagnosis Date Collagenous colitis Essential hypertension GERD (gastroesophageal reflux disease) Hiatal hernia Hx of colonic polyps Hyperparathyroidism Non-cardiac chest pain Other forms of migraine Parathyroid adenoma Schatzki's ring Senile osteoporosis PAST SURGICAL HISTORY Procedure Laterality Date COLONOSCOPY 12/31/2006 collagenous colitis EGD 09/06/2008 Slightly patulous GE junctoin, neg H Pylori EGD 08/25/2018 PARATHYROIDECTOMY/EXPLORATION PARATHYROIDS 2002 Removal parathyroid gland FAMILY HISTORY Problem Relation Age of Onset Diabetes Mother Cancer Father Lung Cancer other (Leukemia) Sister Colon Cancer No Family History REVIEW OF SYSTEMS Review of Systems Gastrointestinal: Gas, heartburn All other systems reviewed and are negative. PHYSICAL EXAM BP 140/82 Pulse 64 Ht 5' 4 (1.63m) Wt 155 lb (70.3kg) BMI 26.59 kg/(m^2). Physical Exam HENT: Head: Normocephalic and atraumatic. Eyes: General: No scleral icterus. Conjunctiva/sclera: Conjunctivae normal. Cardiovascular: Rate and Rhythm: Normal rate and regular rhythm. Heart sounds: Normal heart sounds. Pulmonary: Effort: Pulmonary effort is normal. Breath sounds: Normal breath sounds. Abdominal: General: Bowel sounds are normal. Palpations: Abdomen is soft. Comments: Mild generalized tenderness Musculoskeletal: Cervical back: Neck supple. Skin: General: Skin is warm and dry. Neurological: Mental Status: She is alert and oriented to person, place, and time. Psychiatric: Judgment: Judgment normal. ASSESSMENT: Gastroesophageal reflux disease without esophagitis (primary encounter diagnosis) Non-cardiac chest pain PLAN: No orders found for this visit on 03/08/22. Return in about 6 months (around 09/07/2022). Continue low dose prilosec and carafate bid Adrienne Chavez MD DATE: 03/08/22 TIME: 10:39 AM documented in this encounter [facility] documented as of this encounter (statuses as of 03/08/2022) [facility] History of Past illness Narrative* Problem Noted Date Resolved Date Headache(784.0) 03/22/2014 09/14/2018 Onychia and paronychia of toe 08/13/2011 Ingrowing nail 09/26/2008 03/10/2010 documented as of this encounter (statuses as of 06/19/2022) [facility] History of Past illness Narrative* Problem Noted Date Resolved Date Headache(784.0) 03/22/2014 09/14/2018 Onychia and paronychia of toe 08/13/2011 Ingrowing nail 09/26/2008 03/10/2010 documented as of this encounter (statuses as of 08/14/2022) [facility] History of Past illness Narrative* Problem Noted Date Resolved Date Headache(784.0) 03/22/2014 09/14/2018 Onychia and paronychia of toe 08/13/2011 Ingrowing nail 09/26/2008 03/10/2010 documented as of this encounter (statuses as of 08/14/2022) [facility] of Past illness Narrative* Problem Noted Date Resolved Date Headache(784.0) 03/22/2014 09/14/2018 Onychia and paronychia of toe 08/13/2011 Ingrowing nail 09/26/2008 03/10/2010 documented as of this encounter (statuses as of 08/15/2022) [facility] of Past illness Narrative* Problem Noted Date Resolved Date Headache(784.0) 03/22/2014 09/14/2018 Onychia and paronychia of toe 08/13/2011 Ingrowing nail 09/26/2008 03/10/2010 documented as of this encounter (statuses as of 08/30/2022) [facility] of Past illness Narrative* Problem Noted Date Resolved Date Headache(784.0) 03/22/2014 09/14/2018 Onychia and paronychia of toe 08/13/2011 Ingrowing nail 09/26/2008 03/10/2010 documented as of this encounter (statuses as of 09/02/2022) [facility] of Past illness Narrative* Problem Noted Date Resolved Date Headache(784.0) 03/22/2014 09/14/2018 Onychia and paronychia of toe 08/13/2011 Ingrowing nail 09/26/2008 03/10/2010 documented as of this encounter (statuses as of 09/12/2022) [facility] of Past illness Narrative* Problem Noted Date Resolved Date Headache(784.0) 03/22/2014 09/14/2018 Onychia and paronychia of toe 08/13/2011 Ingrowing nail 09/26/2008 03/10/2010 documented as of this encounter (statuses as of 09/26/2022) [facility] of Past illness Narrative* Problem Noted Date Resolved Date Headache(784.0) 03/22/2014 09/14/2018 Onychia and paronychia of toe 08/13/2011 Ingrowing nail 09/26/2008 03/10/2010 documented as of this encounter (statuses as of 10/07/2022) [facility] of Past illness Narrative* Problem Noted Date Resolved Date Headache(784.0) 03/22/2014 09/14/2018 Onychia and paronychia of toe 08/13/2011 Ingrowing nail 09/26/2008 03/10/2010 documented as of this encounter (statuses as of 10/12/2022) [facility] of Past illness Narrative* Problem Noted Date Resolved Date Headache(784.0) 03/22/2014 09/14/2018 Onychia and paronychia of toe 08/13/2011 Ingrowing nail 09/26/2008 03/10/2010 documented as of this encounter (statuses as of 10/14/2022) [facility] Past illness Narrative* Problem Noted Date Resolved Date Headache(784.0) 03/22/2014 09/14/2018 Onychia and paronychia of toe 08/13/2011 Ingrowing nail 09/26/2008 03/10/2010 documented as of this encounter (statuses as of 10/24/2022) [facility] of Past illness Narrative* Problem Noted Date Resolved Date Headache(784.0) 03/22/2014 09/14/2018 Onychia and paronychia of toe 08/13/2011 Ingrowing nail 09/26/2008 03/10/2010 documented as of this encounter (statuses as of 10/28/2022) [facility] of Past illness Narrative* Problem Noted Date Resolved Date Headache(784.0) 03/22/2014 09/14/2018 Onychia and paronychia of toe 08/13/2011 Ingrowing nail 09/26/2008 03/10/2010 documented as of this encounter (statuses as of 11/10/2022) [facility] of Past illness Narrative* Problem Noted Date Resolved Date Headache(784.0) 03/22/2014 09/14/2018 Onychia and paronychia of toe 08/13/2011 Ingrowing nail 09/26/2008 03/10/2010 documented as of this encounter (statuses as of 11/25/2022) [facility] of Past illness Narrative* Problem Noted Date Resolved Date Headache(784.0) 03/22/2014 09/14/2018 Onychia and paronychia of toe 08/13/2011 Ingrowing nail 09/26/2008 03/10/2010 documented as of this encounter (statuses as of 11/27/2022) [facility] of Past illness Narrative* Problem Noted Date Resolved Date Headache(784.0) 03/22/2014 09/14/2018 Onychia and paronychia of toe 08/13/2011 Ingrowing nail 09/26/2008 03/10/2010 documented as of this encounter (statuses as of 12/06/2022) [facility] History of Past illness Narrative* Problem Noted Date Resolved Date Headache(784.0) 03/22/2014 09/14/2018 Onychia and paronychia of toe 08/13/2011 Ingrowing nail 09/26/2008 03/10/2010 documented as of this encounter (statuses as of 01/13/2023) [facility] of Past illness Narrative* Problem Noted Date Diagnosed Date Resolved Date Headache(784.0) 03/22/2014 09/14/2018 Onychia and paronychia of toe 08/13/2011 09/14/2018 Ingrowing nail 09/26/2008 03/10/2010 documented as of this encounter (statuses as of 06/18/2023) [facility] of Past illness Narrative* Problem Noted Date Diagnosed Date Resolved Date Headache(784.0) 03/22/2014 09/14/2018 Onychia and paronychia of toe 08/13/2011 09/14/2018 Ingrowing nail 09/26/2008 03/10/2010 documented as of this encounter (statuses as of 08/20/2023) [facility] of Past illness Narrative* Problem Noted Date Diagnosed Date Resolved Date Headache(784.0) 03/22/2014 09/14/2018 Onychia and paronychia of toe 08/13/2011 09/14/2018 Ingrowing nail 09/26/2008 03/10/2010 documented as of this encounter (statuses as of 09/08/2023) [facility] Past illness Narrative* Problem Noted Date Diagnosed Date Resolved Date Headache(784.0) 03/22/2014 09/14/2018 Onychia and paronychia of toe 08/13/2011 09/14/2018 Ingrowing nail 09/26/2008 03/10/2010 documented as of this encounter (statuses as of 09/13/2023) [facility] Past illness Narrative* Problem Noted Date Diagnosed Date Resolved Date Headache(784.0) 03/22/2014 09/14/2018 Onychia and paronychia of toe 08/13/2011 09/14/2018 Ingrowing nail 09/26/2008 03/10/2010 documented as of this encounter (statuses as of 09/22/2023) [facility] Past illness Narrative* Problem Noted Date Diagnosed Date Resolved Date Headache(784.0) 03/22/2014 09/14/2018 Onychia and paronychia of toe 08/13/2011 09/14/2018 Ingrowing nail 09/26/2008 03/10/2010 documented as of this encounter (statuses as of 10/16/2023) [facility] Past [facility] Narrative* Problem Noted Date Diagnosed Date Resolved Date Headache(784.0) 03/22/2014 09/14/2018 Onychia and paronychia of toe 08/13/2011 09/14/2018 Ingrowing nail 09/26/2008 03/10/2010 documented as of this encounter (statuses as of 12/22/2023) [facility] note* Diagnosis Gastroesophageal reflux disease without esophagitis- Primary Esophageal reflux Non-cardiac chest pain Other chest pain documented in this encounter [facility] note* Diagnosis Allergic contact dermatitis due to plants, except food- Primary Contact dermatitis and other eczema due to plants (except food) documented in this encounter [facility] note* Diagnosis Gastroesophageal reflux disease without esophagitis Esophageal reflux Vomiting without nausea Vomiting alone documented in this encounter [facility] note* Diagnosis Gastroesophageal reflux disease without esophagitis Esophageal reflux [facility] [place] [facility] Diagnosis Hypertension, essential Unspecified essential hypertension documented [facility] [place] [facility]* Diagnosis Gastroesophageal reflux disease without esophagitis- Primary Esophageal reflux [facility] [place] [facility] Diagnosis Hypertension, essential- Primary Unspecified essential hypertension Abnormal kidney function Unspecified disorder of kidney and ureter Gastroesophageal reflux disease, unspecified whether esophagitis present Encounter for immunization Need for other specified prophylactic vaccination against single bacterial disease documented in this encounter [facility] note* Diagnosis Gastroesophageal reflux disease without esophagitis Esophageal reflux documented in this encounter [facility] note* Diagnosis Hypertension, essential- Primary Unspecified essential hypertension [facility] [place] [facility]* Diagnosis Gastroesophageal reflux disease without esophagitis- Primary Esophageal reflux documented in this encounter [facility] note* Diagnosis Essential hypertension- Primary Unspecified essential hypertension Abnormal kidney function Unspecified disorder of kidney and ureter Hyperlipidemia, unspecified hyperlipidemia type Hyperglycemia Other abnormal glucose documented in this encounter [facility] note* Diagnosis Gastroesophageal reflux disease without esophagitis- Primary Esophageal reflux [facility] [place] [facility] Diagnosis Allergic contact dermatitis due to plants, except food- Primary Contact dermatitis and other eczema due to plants (except food) documented [facility] [place] [facility]* Diagnosis Encounter for immunization- Primary Need for other specified prophylactic vaccination against single bacterial disease Essential hypertension Unspecified essential hypertension Gastroesophageal reflux disease without esophagitis Esophageal reflux Statin intolerance Other drug allergy Hyperglycemia Other abnormal glucose Encounter for screening fecal occult blood testing Special screening for malignant neoplasms, colon S/P parathyroidectomy (HCC) Other postprocedural status [facility] [place] [facility] Diagnosis Hypertension, essential Unspecified essential hypertension [facility] [place] [facility] Diagnosis Gastroesophageal reflux disease without esophagitis- Primary Esophageal reflux Hiccup Hiccough [facility] [place] [facility] Diagnosis Gastroesophageal reflux disease without esophagitis Esophageal reflux Hiccup Hiccough documented in this encounter [facility] note* Diagnosis Gastroesophageal reflux disease without esophagitis- Primary Esophageal reflux Voice hoarseness Dysphonia documented in this encounter [facility] for referral (narrative)* Outpatient Procedure (Routine) - Authorized Specialty Diagnoses / Procedures Referred By Yady plunkett Referred To Contact [facility] [place] Diagnoses Gastroesophageal reflux disease without esophagitis Procedures EGD DIAGNOSTIC ESOPHAGOGASTRODUODENOSC OPY TRANSORAL DIAGNOSTIC Maria Victoria Woodward PA-C [address] [place] [address] [facility] [place] [address] [place] [id number] Referral ID Status Reason Start Date Expiration Date Visits Requested Visits Authorized [id number] Authorized Auto-Generat ed Referral 01/13/2023 01/14/2024 1 1 [facility] Advance Directives No Advanced Directives Records FoundDocuments on File Type Date Recorded Patient Human Resources Director Expl anation Advance Directive(s) 08/25/2018 10:11 AM Summary Purpose Family History No Family History Records FoundNo Family History Records Found Additional Source Comments Source Comments (unrecognize d section and content) In the event this informatio n is protected by the Federal Confidentiality of Alcohol and Drug Abuse Patient Records regulations: The Federal rules restrict any use of the information to criminally investigate or prosecute any alcohol or drug abuse patient.[facility] the event this information is protected by the Federal Confidentiality of Alcohol and Drug Abuse Patient Records regulations: The Federal rules restrict any use of the information to criminally investigate or prosecute any alcohol or drug abuse patient.[facility] the event this information is protected by the Federal Confidentiality of Alcohol and Drug Abuse Patient Records regulations: The Federal rules restrict any use of the information to criminally investigate or prosecute any alcohol or drug abuse patient.[facility] the event this information is protected by the Federal Confidentiality of Alcohol and Drug Abuse Patient Records regulations: The Federal rules restrict any use of the information to criminally investigate or prosecute any alcohol or drug abuse patient.[facility] the event this information is protected by the Federal Confidentiality of Alcohol and Drug Abuse Patient Records regulations: The Federal rules restrict any use of the information to criminally investigate or prosecute any alcohol or drug abuse patient.[facility] the event this information is protected by the Federal Confidentiality of Alcohol and Drug Abuse Patient Records regulations: The Federal rules restrict any use of the information to criminally investigate or prosecute any alcohol or drug abuse patient.[facility] the event this information is protected by the Federal Confidentiality of Alcohol and Drug Abuse Patient Records regulations: The Federal rules restrict any use of the information to criminally investigate or prosecute any alcohol or drug abuse patient.[facility] the event this information is protected by the Federal Confidentiality of Alcohol and Drug Abuse Patient Records regulations: The Federal rules restrict any use of the information to criminally investigate or prosecute any alcohol or drug abuse patient.[facility] the event this information is protected by the Federal Confidentiality of Alcohol and Drug Abuse Patient Records regulations: The Federal rules restrict any use of the information to criminally investigate or prosecute any alcohol or drug abuse patient.[facility] the event this information is protected by the Federal Confidentiality of Alcohol and Drug Abuse Patient Records regulations: The Federal rules restrict any use of the information to criminally investigate or prosecute any alcohol or drug abuse patient.[facility] the event this information is protected by the Federal Confidentiality of Alcohol and Drug Abuse Patient Records regulations: The Federal rules restrict any use of the information to criminally investigate or prosecute any alcohol or drug abuse patient.[facility] the event this information is protected by the Federal Confidentiality of Alcohol and Drug Abuse Patient Records regulations: The Federal rules restrict any use of the information to criminally investigate or prosecute any alcohol or drug abuse patient.[facility] the event this information is protected by the Federal Confidentiality of Alcohol and Drug Abuse Patient Records regulations: The Federal rules restrict any use of the information to criminally investigate or prosecute any alcohol or drug abuse patient.[facility] HospitalIn the event this information is protected by the Federal Confidentiality of Alcohol and Drug Abuse Patient Records regulations: The Federal rules restrict any use of the information to criminally investigate or prosecute any alcohol or drug abuse patient.[facility]In the event this information is protected by the Federal Confidentiality of Alcohol and Drug Abuse Patient Records regulations: The Federal rules restrict any use of the information to criminally investigate or prosecute any alcohol or drug abuse patient.[facility]In the event this information is protected by the Federal Confidentiality of Alcohol and Drug Abuse Patient Records regulations: The Federal rules restrict any use of the information to criminally investigate or prosecute any alcohol or drug abuse patient.[facility] HospitalIn the event this information is protected by the Federal Confidentiality of Alcohol and Drug Abuse Patient Records regulations: The Federal rules restrict any use of the information to criminally investigate or prosecute any alcohol or drug abuse patient.[facility] HospitalIn the event this information is protected by the Federal Confidentiality of Alcohol and Drug Abuse Patient Records regulations: The Federal rules restrict any use of the information to criminally investigate or prosecute any alcohol or drug abuse patient.[facility]In the event this information is protected by the Federal Confidentiality of Alcohol and Drug Abuse Patient Records regulations: The Federal rules restrict any use of the information to criminally investigate or prosecute any alcohol or drug abuse patient.[facility] HospitalIn the event this information is protected by the Federal Confidentiality of Alcohol and Drug Abuse Patient Records regulations: The Federal rules restrict any use of the information to criminally investigate or prosecute any alcohol or drug abuse patient.[facility] HospitalIn the event this information is protected by the Federal Confidentiality of Alcohol and Drug Abuse Patient Records regulations: The Federal rules restrict any use of the information to criminally investigate or prosecute any alcohol or drug abuse patient.[facility] HospitalIn the event this information is protected by the Federal Confidentiality of Alcohol and Drug Abuse Patient Records regulations: The Federal rules restrict any use of the information to criminally investigate or prosecute any alcohol or drug abuse patient.[facility] HospitalIn the event this information is protected by the Federal Confidentiality of Alcohol and Drug Abuse Patient Records regulations: The Federal rules restrict any use of the information to criminally investigate or prosecute any alcohol or drug abuse patient.[facility] HospitalIn the event this information is protected by the Federal Confidentiality of Alcohol and Drug Abuse Patient Records regulations: The Federal rules restrict any use of the information to criminally investigate or prosecute any alcohol or drug abuse patient.[facility] HospitalIn the event this information is protected by the Federal Confidentiality of Alcohol and Drug Abuse Patient Records regulations: The Federal rules restrict any use of the information to criminally investigate or prosecute any alcohol or drug abuse patient.[facility] HospitalIn the event this information is protected by the Federal Confidentiality of Alcohol and Drug Abuse Patient Records regulations: The Federal rules restrict any use of the information to criminally investigate or prosecute any alcohol or drug abuse patient.[facility] Reason for Visit (unrecogniz ed section and content) Reason Comments Rash Poison sheldon on face, neck, and R wrist x1 day Reason Comments Refill Request Reason Comments Med Change Request Reason Comments Medication Problem Reason Comments Recheck GERD- heartburn- nee ds refills Reason Comments Yearly Exam Reason Comments Blood Pressure Recheck Reason Comments BP Readings Reason Comments Recheck GERD Reason Comments Follow Up Blood pressure Reason Onset Date Comments Refill Request 10/28/2022 Reason Comments Nurse Triage Call Refill Request Reason Comments Patient Update Home Blood pressure readings Reason Comments Recheck No concerns Reason Comments Rash Pt reported rash loc ated neck, fingers, face x1 wk. Reason Comments 6 Month Exam Reason Comments Results Returning Patient's Call Reason Comments Recheck GERD-hiccups and hea rtburn Care Teams (unrecognized sec tion and content) [employer] Relationship Specialty Start Date End Date Silverio Gale MD [address] [place] [address] PCP - General 03/16/10 [employer] Relationship Specialty Start Date End Date Silverio Gale MD [address] [place] [address], [place] [address] PCP - General 03/16/10 [employer] Relationship Specialty Start Date End Date Silverio Gale MD [address] [place] [address], [place] [address] PCP - General 03/16/10 [employer] Relationship Specialty Start Date End Date Silverio Gale MD [address] [place] [address], [place] [address] PCP - General 03/16/10 [employer] Relationship Specialty Start Date End Date Silverio Gale MD [address] [place] [address], [place] [address] PCP - General 03/16/10 [employer] Relationship Specialty Start Date End Date Silverio Gale MD [address] [place] [address], [place] [address] PCP - General 03/16/10 [employer] Relationship Specialty Start Date End Date Silverio Gale MD [address] [place] [address], [place] [address] PCP - General 03/16/10 [employer] Relationship Specialty Start Date End Date Silverio Gale MD [address] [place] [address], [place] [address] PCP - General 03/16/10 [employer] Relationship Specialty Start Date End Date Silverio Gale MD [address] [place] [address], [place] [address] PCP - General 03/16/10 [employer] Relationship Specialty Start Date End Date Silverio Gale MD [address] [place] [address], [place] [address] PCP - General 03/16/10 [employer] Relationship Specialty Start Date End Date Silverio Gale MD [address] [place] [address] PCP - General 03/16/10 [employer] Relationship Specialty Start Date End Date Silverio Gale MD [address] [place] [address] PCP - General 03/16/10 [employer] Relationship Specialty Start Date End Date Silverio Gale MD [address] [place] [address] PCP - General 03/16/10 INFORMATION SOURCE (unrecogn ized section and content) DATE CREATED AUTHOR AUTHOR'S ORGANIZ ATION 12/23/2023 [facility] FOR RECORDS PERTAINING TO PATIENTS WHO ARE OR HAVE BEEN ENROLLED IN A CHEMICAL DEPENDENCY/SUBSTANCEABUSE PROGRAM, SOME INFORMATION MAY BE OMITTED. This clinical summary was aggregated from multiple sources. Caution should be exercised in using it in the provision of clinical care. This summary normalizes information from multiple sources, and as a consequence, information in this document may materially change the coding, format and clinical context of patient data. In addition, data may be omitted in some cases. CLINICAL DECISIONS SHOULD BE BASED ON THE PRIMARY CLINICAL RECORDS. [employer] provides no warranty or guarantee of the accuracy or completeness of information in this document.
[2024-01-06 06:44] LABS: AST(SGOT) 15 U/L (15-37); Alanine Aminotransfer ALT/SGPT 24 U/L (13-56); Albumin, Serum 3.6 g/dL (3.2-5.0); Alkaline Phosphatase 124 U/L (45-117); Bilirubin, Direct 0.12 mg/dL (0.00-0.30); Globulin 3.9 g/dL (2.2-4.2); Protein, Total 7.5 g/dL (6.4-8.2)
[2024-01-06] MEDS: Mag Hydrox/Al Hydrox/Simeth 30 ML UDC PO (07:09)
--- NOTE | 2024-01-06 07:45 | CT_ITS ---
INDICATION: chest pain, dissection study EXAMINATION: CTA CHEST, ABDOMEN AND PELVIS WITH CONTRAST - TECHNIQUE: A CTA of the chest, abdomen, and pelvis is obtained with sagittal and coronal reconstructed MIP views. Three-dimensional surface rendered sequence of the thoracic and abdominal aorta was obtained. A radiation dose optimization technique was used for this scan. 100 mL of Isovue-370. Oral contrast: None. COMPARISON: Comparison is made with prior chest graft done earlier today. FINDINGS: Mild enlargement of the right lobe of the thyroid with no focal calcifications along its inferior aspect. CT CHEST: THORACIC AORTA: Minimal atheromatous disease, no aneurysmal changes or dissection. ABDOMINAL AORTA: No aneurysm or dissection. Minimal atheromatous disease. The iliac arteries are unremarkable. LUNGS: Mild degree of increased linear markings at the lung bases suggestive of either mild degree of linear scarring versus dependent basilar atelectasis. MEDIASTINUM: The thyroid gland is normal. No mediastinal or hilar adenopathy. HEART: Heart is normal size. No pericardial effusion. Coronary artery calcification. CT ABDOMEN AND PELVIS: LIVER: Fatty infiltration of the liver. GALLBLADDER: The CBD is normal. Normal gallbladder. SPLEEN: Normal. PANCREAS: No masses or inflammation. ADRENAL GLANDS: Normal. KIDNEYS AND URETERS: The kidneys both enhance appropriately. There are normal size and shape. No hydronephrosis or nephrolithiasis. No renal masses or cysts. Incidental note is made of a left retroaortic renal vein. STOMACH: Small hiatal hernia. SMALL BOWEL: No abnormal distention of the small bowel. MESENTERY: No mesenteric inflammation. No ascites. COLON: No significant diverticulosis, masses or inflammation. The colon otherwise is normal. There is a large fatty ileocecal valve. APPENDIX: The appendix is visualized and normal. IVC: Normal. RETROPERITONEUM: No retroperitoneal lymphadenopathy. PELVIC STRUCTURES: Normal bladder. SOFT TISSUES ABDOMEN: The anterior abdominal wall is normal. SOFT TISSUE CHEST: The extrathoracic soft tissues are normal. BONES: Mild degree of disc space narrowing and spondylosis at the L4-L5 and L5-S1 levels. CT/CTA Chst, Abd, Pel W and/or WO IMPRESSION: No evidence of a thoracic or abdominal aortic dissection or aneurysm Mild increased linear markings at the lung bases suggestive of atelectasis and/or scarring. Fatty infiltration of the liver. Electronically Signed: Kurt Camacho MD at 8:43 EST ,
--- NOTE | 2024-01-06 07:47 | ED.VIS.CHEST ---
HPI <Dr. Yoana Garrett DO - Last Filed: 01/06/24 08:02> History of Present Illness Chief Complaint: Chest Pain Informant: patient Narrative Narrative: Patient is a 78 year old femlae with history of GERD and HTN presenting with chest pain. Patient states it woke her up just prior to arrival. She describes it as sharp and in the center of her chest rating to both her shoulders. She is it is worse when she takes a deep breath. She states it kind of feels like her reflux but she never had this severe pain. She denies any numbness or weakness of her legs. Denies any associated nausea or vomiting. She denies eating anything unusual for dinner and denies any recent spicy foods. Denies any swelling of her legs or history of DVT/PE. Denies any recent medication changes. No other complaints or concerns at this time. Does have history of high blood pressure but denies any significant cardiac history. PFSH <Dr. Yoana Garrett DO - Last Filed: 01/06/24 08:02> [facility] Medical History Chest pain Hypertension Migraines Home Medications cholecalciferol (vitamin D3) 25 mcg (1,000 unit) tablet (Vitamin D3) 1,000 unit PO DAILY 06/09/15 [History Last Taken Unknown] propranolol 40 mg tablet 40 mg PO BID 06/09/15 [History Last Taken Unknown] omeprazole 20 mg capsule,delayed release 40 mg PO BID 07/31/20 [History Last Taken Unknown] chlorthalidone 25 mg tablet 25 mg PO DAILY 01/06/24 [History Last Taken Unknown] Allergy/AdvReac Type Severity Reaction Status Date / Time Cuxvedl-OQV-UgZ Reductase Allergy Severe Swelling Verified 01/06/24 05:50 Inhibitor acetaminophen [From Tylenol] AdvReac Upset Verified 07/31/20 00:27 Stomach Social History Smoking Status: Never smoker ROS <Dr. Yoana Garrett DO - Last Filed: 01/06/24 08:02> ROS ED Constitutional Constitutional ED: Denies chills or fever(s) ENT ENT ED: Denies sore throat Cardiovascular Cardiovascular: Reports as per HPI and chest pain Respiratory/Chest Respiratory/Chest: Denies cough, dyspnea or dyspnea on exertion Gastrointestinal Gastrointestinal: Reports nausea; Denies abdominal pain, diarrhea, melena or vomiting Genitourinary Genitourinary ED: Denies dysuria Musculoskeletal Musculoskeletal: Denies arthralgias, back pain or myalgias Integumentary Denies rash Neurologic Neurologic: Denies headache(s) Hematologic/Lymphatic Hematologic/Lymphatic: Denies easy bleeding or easy bruising EXAM <Dr. Yoana Garrett, DO - Last Filed: 01/06/24 08:02> Physical Exam Const Vital Signs: 01/06/24 05:36 01/06/24 05:41 01/06/24 05:50 Temperature 97.9 F Temperature Source Oral Pulse Rate 80 87 Respiratory Rate 15 18 Respiratory Pattern Normal Blood Pressure 177/99 H 177/86 H Blood Pressure Mean 125 116 Pulse Ox 98 97 Oxygen Delivery Method Room Air Room Air 01/06/24 05:55 01/06/24 06:00 01/06/24 06:05 Temperature Temperature Source Pulse Rate 80 76 81 Respiratory Rate Respiratory Pattern Blood Pressure 177/86 H 149/80 H 123/76 H Blood Pressure Mean Pulse Ox Oxygen Delivery Method 01/06/24 07:36 Temperature Temperature Source Pulse Rate 77 Respiratory Rate 18 Respiratory Pattern Blood Pressure 135/65 H Blood Pressure Mean 88 Pulse Ox 97 Oxygen Delivery Method Room Air Positive well nourished and well developed General Appearance ED: well developed and NAD HEENT Reports moist mucous membranes normocephalic and atraumatic Eyes PERRL Neck supple and no JVD Chest Wall inspection of chest normal and palpation of chest normal Chest Narrative: No chest wall crepitus Resp normal respiratory effort and clear to auscultation bilaterally Cardio regular rate and regular rhythm Peripheral Pulses: radial pulses present and dorsalis pedis pulses present GI normal to inspection, nondistended, normoactive bowel sounds, soft to palpation and non-tender Extremity normal to inspection Neuro oriented x3 Sensorium / Orientation: awake and alert Motor Exam: Negative for general weakness Psych mental status grossly normal Mood & Affect: anxious Skin no rashes or lesions noted <Dr. Justo Zabala, DO - Last Filed: 01/06/24 08:50> Physical Exam Const Vital Signs: 01/06/24 05:36 01/06/24 05:41 01/06/24 05:50 Temperature 97.9 F Temperature Source Oral Pulse Rate 80 87 Respiratory Rate 15 18 Respiratory Pattern Normal Blood Pressure 177/99 H 177/86 H Blood Pressure Mean 125 116 Pulse Ox 98 97 Oxygen Delivery Method Room Air Room Air 01/06/24 05:55 01/06/24 06:00 01/06/24 06:05 Temperature Temperature Source Pulse Rate 80 76 81 Respiratory Rate Respiratory Pattern Blood Pressure 177/86 H 149/80 H 123/76 H Blood Pressure Mean Pulse Ox Oxygen Delivery Method 01/06/24 07:36 Temperature Temperature Source Pulse Rate 77 Respiratory Rate 18 Respiratory Pattern Blood Pressure 135/65 H Blood Pressure Mean 88 Pulse Ox 97 Oxygen Delivery Method Room Air <Dr. Yoana Garrett, DO - Last Filed: 01/06/24 08:02> Heart Score History: Moderately Suspicious ECG: Normal Age: >/= 65 years Risk Factors: 1 or 2 Risk Factors Troponin: </= Normal Limit Score: 4 <Dr. Justo Zabala, DO - Last Filed: 01/06/24 08:50> Heart Score Score: 4 MDM <Dr. Yoana Garrett, DO - Last Filed: 01/06/24 08:02> MDM MDM Narrative Medical decision making narrative: Patient is evaluated for intermittent but acute onset of sternal chest pain rating to her bilateral shoulders. She is hypertensive upon arrival but vital signs otherwise normal. Differential includes ACS, pneumothorax, pneumonia, pulmonary emboli (less likely based on HPI), acute aortic dissection, gastritis, pancreatitis and GERD. Patient is initially given nitroglycerin with improvement of her blood pressure but it makes her very nauseous and she does not have any improvement of her chest pain. Is then given Zofran and a GI cocktail. She only has minor improvement of her symptoms with a GI cocktail. Nausea does get better with the Zofran. 2 view chest x-ray viewed by myself as well as radiology does not show any acute process lab work largely unremarkable including a normal CBC, normal troponin (initial high-sensitivity opponent is 33), normal lipase and a mildly elevated creatinine of 1.17 which appears to be near her baseline. EKG does not show acute ischemic changes. Patient still having significant pain and she describes a spasm in her chest will obtain a dissection study to rule this out. Patient be signed out to oncoming physician pending delta troponin, repeat evaluation final disposition. Anticipate if workup is negative could be discharged home however she continues to have significant pain might require observation in the hospital if no acute processes found. Lab Data Attestation: I reviewed the patient's lab results. Labs: Laboratory Results - last 24 hr 01/06/24 01/06/24 05:40 08:10 WBC 10.7 RBC 4.35 Hgb 13.0 Hct 39.9 MCV 91.7 MCH 29.9 MCHC 32.6 RDW Std Deviation 42.5 RDW Coeff of Sulema 12.6 Plt Count 294 MPV 10.8 Immature Gran % (Auto) 0.400 Neut % (Auto) 68.1 Lymph % (Auto) 20.0 [place] % (Auto) 8.4 Eos % (Auto) 2.4 Baso % (Auto) 0.7 Absolute Neuts (auto) 7.3 Absolute Lymphs (auto) 2.14 Nucleated RBC % 0 Sodium 138 Potassium 4.2 Chloride 104 Carbon Dioxide 31.0 Anion Gap 3 L BUN 18 Creatinine 1.17 H Estim Creat Clear Calc 37.78 Est GFR (MDRD) Af Amer 57 L Est GFR (MDRD) Non-Af 47 L BUN/Creatinine Ratio 15.4 Glucose 109 H Calcium 9.1 Total Bilirubin 0.60 Direct Bilirubin 0.12 AST 15 ALT 24 Alkaline Phosphatase 124 H Troponin I High Sens 33 34 Total Protein 7.5 Albumin 3.6 Globulin 3.9 Lipase 29 Radiography Chest X-Ray - ED: 2 View, Read by ED Physician, Read by Radiologist and No Acute Disease Diagnostic Testing: Clinical Impression(s) from Imaging Studies Chest X-Ray 01/06/24 05:43 IMPRESSION: No radiographic evidence of acute cardiopulmonary disease. Electronically Signed: Elliot Solorio MD at 7:12 EST , Chest/Abdomen/Pelvis CTA 01/06/24 07:45 IMPRESSION: No evidence of a thoracic or abdominal aortic dissection or aneurysm Mild increased linear markings at the lung bases suggestive of atelectasis and/or scarring. Fatty infiltration of the liver. Electronically Signed: Kurt Camacho MD at 8:43 EST , Rhythm Strip Rhythm Strip: Sinus Rhythm Rate: 77 Ectopy: None EKG Initial EKG: Attestation: I personally reviewed and interpreted this EKG as follows: Interpretation: Sinus Rhythm Comments: Normal sinus rhythm at a rate of 77 beats per minutes Slight left axis Normal intervals Minimal voltage criteria for LVH Normal ST segments Compared to prior EKG on 07/31/2020 patient now has voltage criteria for LVH and a slight left axis with no other acute changes <Dr. Justo Zabala, DO - Last Filed: 01/06/24 08:50> [facility] Lab Data Labs: Laboratory Results - last 24 hr 01/06/24 01/06/24 05:40 08:10 WBC 10.7 RBC 4.35 Hgb 13.0 Hct 39.9 MCV 91.7 MCH 29.9 MCHC 32.6 RDW Std Deviation 42.5 RDW Coeff of Sulema 12.6 Plt Count 294 MPV 10.8 Immature Gran % (Auto) 0.400 Neut % (Auto) 68.1 Lymph % (Auto) 20.0 [place] % (Auto) 8.4 Eos % (Auto) 2.4 Baso % (Auto) 0.7 Absolute Neuts (auto) 7.3 Absolute Lymphs (auto) 2.14 Nucleated RBC % 0 Sodium 138 Potassium 4.2 Chloride 104 Carbon Dioxide 31.0 Anion Gap 3 L BUN 18 Creatinine 1.17 H Estim Creat Clear Calc 37.78 Est GFR (MDRD) Af Amer 57 L Est GFR (MDRD) Non-Af 47 L BUN/Creatinine Ratio 15.4 Glucose 109 H Calcium 9.1 Total Bilirubin 0.60 Direct Bilirubin 0.12 AST 15 ALT 24 Alkaline Phosphatase 124 H Troponin I High Sens 33 34 Total Protein 7.5 Albumin 3.6 Globulin 3.9 Lipase 29 Radiography Diagnostic Testing: Clinical Impression(s) from Imaging Studies Chest X-Ray 01/06/24 05:43 IMPRESSION: No radiographic evidence of acute cardiopulmonary disease. Electronically Signed: Elliot Solorio MD at 7:12 EST , Chest/Abdomen/Pelvis CTA 01/06/24 07:45 IMPRESSION: No evidence of a thoracic or abdominal aortic dissection or aneurysm Mild increased linear markings at the lung bases suggestive of atelectasis and/or scarring. Fatty infiltration of the liver. Electronically Signed: Kurt Camacho MD at 8:43 EST , Treatment and Re-Evaluation :: Care of the patient was turned over to hi pending CTA results and repeat troponin. Repeat troponin was reviewed and was normal at 34. CTA of the chest abdomen and pelvis was reviewed. There is no evidence of aortic dissection or aneurysm. There is atelectasis noted. There is no acute process noted. This was interpreted by the radiologist and was also independently reviewed by myself. Patient was advised of her findings. Patient was instructed to follow-up with her primary care physician in 5 to 7 days. Patient understood and was agreeable with the plan. All questions were answered. Discharge Plan Triage Chief Complaint: Chest Pain ED Provider: Yoana Garrett Dx/Rx/DC Orders Clinical Impression: Chest pain Instructions: ED Chest Pain, Uncertain Cause Prescriptions: No Action propranolol 40 MG tablet 40 mg PO BID cholecalciferol (vitamin D3) [Vitamin D3] 1,000 UNIT tablet 1,000 unit PO DAILY omeprazole 20 MG capsule,delayed release(DR/EC) 40 mg PO BID chlorthalidone 25 mg tablet 25 mg PO DAILY Primary Care Provider: Richard Juarez Referrals: Richard Juarez MD [Primary Care Provider] - 5-7 Days Disposition Disposition: Home, Self Care
[2024-01-06 07:51] LABS: Reflex Troponin-HS? (from REC) Y
[2024-01-06 08:41] LABS: Troponin-I HS 34 pg/mL (3.0-54.0)
== END 2024-01-06 10:23 | disposition home or self-care (01) ==
PROVIDERS: Emergency Provider Emergency Medicine; PCP Family Medicine; Visit Provider Emergency Medicine
DX: R07.9 Chest pain, unspecified (principal); R11.0 Nausea; I10 Essential (primary) hypertension; Z79.899 Other long term (current) drug therapy
CPT/HCPCS: 71046; 71275; 74174; 80048; 80076; 83690; 84484; 85025; 93005; 96374; 99284; Q9967; A4216; J2405